=== PATIENT | male | born 1965 | race Caucasian/White ===

== ENCOUNTER → 2020-12-16 08:04 | Outpatient (BNVA) | payer MEDICAID, SELFPAY | PROVIDERS: Family Provider Family Medicine; PCP Family Medicine; Visit Provider Counselor Professional | DX: F31.13 Bipolar disorder, current episode manic without psychotic features, severe (principal); F41.0 Panic disorder [episodic paroxysmal anxiety] | CPT/HCPCS: 90832 ==

== ENCOUNTER → 2021-01-03 11:29 | Outpatient (BNVA) | payer MEDICAID, SELFPAY | PROVIDERS: Family Provider Family Medicine; PCP Family Medicine; Visit Provider Counselor Professional | DX: F31.13 Bipolar disorder, current episode manic without psychotic features, severe (principal); F41.0 Panic disorder [episodic paroxysmal anxiety] | CPT/HCPCS: 90832 ==

== ENCOUNTER → 2021-01-04 12:54 | Outpatient (BNVA) | payer MEDICAID, SELFPAY | PROVIDERS: Family Provider Family Medicine; PCP Family Medicine; Visit Provider Psychiatry & Neurology Psychiatry | DX: F33.2 Major depressive disorder, recurrent severe without psychotic features (principal); F60.1 Schizoid personality disorder; F70 Mild intellectual disabilities | CPT/HCPCS: 99204 ==

== ENCOUNTER → 2021-01-20 15:02 | Outpatient (BNVA) | payer MEDICAID, SELFPAY | PROVIDERS: Family Provider Family Medicine; PCP Family Medicine; Visit Provider Counselor Professional | DX: F31.13 Bipolar disorder, current episode manic without psychotic features, severe (principal); F41.0 Panic disorder [episodic paroxysmal anxiety] | CPT/HCPCS: 90832 ==

== ENCOUNTER → 2021-01-31 07:41 | Outpatient (BNVA) | payer MEDICAID, SELFPAY | PROVIDERS: Family Provider Family Medicine; PCP Family Medicine; Visit Provider Psychiatry & Neurology Psychiatry | DX: F70 Mild intellectual disabilities (principal); F60.1 Schizoid personality disorder; F33.2 Major depressive disorder, recurrent severe without psychotic features | CPT/HCPCS: 99213 ==

== ENCOUNTER → 2021-02-02 15:06 | Outpatient (BNVA) | payer MEDICAID, SELFPAY | PROVIDERS: Family Provider Family Medicine; PCP Family Medicine; Visit Provider Counselor Professional | DX: F31.13 Bipolar disorder, current episode manic without psychotic features, severe (principal); F41.0 Panic disorder [episodic paroxysmal anxiety] | CPT/HCPCS: 90832 ==

== ENCOUNTER → 2021-03-02 16:05 | Outpatient (BNVA) | payer MEDICAID, SELFPAY | PROVIDERS: Family Provider Family Medicine; PCP Family Medicine; Visit Provider Counselor Professional | DX: F31.13 Bipolar disorder, current episode manic without psychotic features, severe (principal); F41.0 Panic disorder [episodic paroxysmal anxiety] | CPT/HCPCS: 90832 ==

== ENCOUNTER → 2021-06-22 14:06 | Outpatient (BNVA) | payer MEDICAID, SELFPAY | PROVIDERS: Family Provider Family Medicine; PCP Family Medicine; Visit Provider Psychiatry & Neurology Psychiatry | DX: F70 Mild intellectual disabilities (principal); F60.1 Schizoid personality disorder; F33.2 Major depressive disorder, recurrent severe without psychotic features | CPT/HCPCS: 99214 ==

== ENCOUNTER → 2021-08-09 09:29 | Outpatient (BNVA) | payer MEDICAID, SELFPAY | PROVIDERS: Family Provider Family Medicine; PCP Family Medicine; Referring Provider Psychiatry & Neurology Psychiatry; Visit Provider Psychiatry & Neurology Psychiatry | DX: Z79.899 Other long term (current) drug therapy (principal) | CPT/HCPCS: 36415; 80061; 83036 ==

== ENCOUNTER → 2021-08-17 12:58 | Outpatient (BNVA) | payer MEDICAID, SELFPAY ==
[2021-08-12 10:59] VITALS: BP 135/74; BMI 38.8
== END ==
PROVIDERS: Family Provider Family Medicine; PCP Family Medicine; Referring Provider Family Medicine; Visit Provider Podiatrist Foot & Ankle Surgery
DX: M79.672 Pain in left foot (principal)
CPT/HCPCS: 73630

== ENCOUNTER 2021-08-17 13:54 | Outpatient (CLI) | payer MEDICAID, SELFPAY ==
[2021-08-12 10:59] VITALS: BP 135/74; BMI 38.8
== END 2021-08-17 13:55 | disposition home or self-care (01) ==
LOC: SPT 13:55
PROVIDERS: Family Provider Family Medicine; PCP Family Medicine; Visit Provider Podiatrist Foot & Ankle Surgery
DX: Z46.89 Encounter for fitting and adjustment of other specified devices (principal); M76.822 Posterior tibial tendinitis, left leg
CPT/HCPCS: 97760; L4361

== ENCOUNTER 2021-08-31 11:57 | Outpatient (CLI) | payer MEDICAID, SELFPAY ==
[2021-08-12 10:59] VITALS: BP 135/74; BMI 38.8
== END 2021-08-31 11:58 | disposition home or self-care (01) ==
LOC: SPT 11:58
PROVIDERS: Family Provider Family Medicine; PCP Family Medicine; Visit Provider Podiatrist Foot & Ankle Surgery
DX: Z46.89 Encounter for fitting and adjustment of other specified devices (principal); M76.822 Posterior tibial tendinitis, left leg
CPT/HCPCS: 97760; L1902

== ENCOUNTER → 2022-01-26 14:36 | Outpatient (BNVA) | payer MEDICAID, SELFPAY ==
[2021-08-12 10:59] VITALS: BP 135/74; BMI 38.8
== END ==
PROVIDERS: Family Provider Family Medicine; PCP Family Medicine; Visit Provider Psychiatry & Neurology Psychiatry
DX: F70 Mild intellectual disabilities (principal); F60.1 Schizoid personality disorder; F33.2 Major depressive disorder, recurrent severe without psychotic features; M76.829 Posterior tibial tendinitis, unspecified leg
CPT/HCPCS: 99214

== ENCOUNTER → 2022-02-23 10:45 | Outpatient (BNVA) | payer MEDICAID, SELFPAY ==
[2021-08-12 10:59] VITALS: BP 135/74; BMI 38.8
== END ==
PROVIDERS: Family Provider Family Medicine; PCP Family Medicine; Visit Provider Psychiatry & Neurology Psychiatry
DX: F33.2 Major depressive disorder, recurrent severe without psychotic features (principal); F70 Mild intellectual disabilities; F60.1 Schizoid personality disorder
CPT/HCPCS: 99214

== ENCOUNTER 2022-03-02 11:38 | Emergency (ER) | payer MEDICAID, SELFPAY ==
[2021-08-12 10:59] VITALS: BP 135/74; BMI 38.8
[2022-03-02 12:21] VITALS: BP 122/83; PULSE 85; RESP 16; TEMP 36.8; O2SAT 98; BMI 33.7
--- NOTE | 2022-03-02 12:28 | ED_ITS ---
HPI - Extremity Problem General: Chief complaint: Extremity Injury, Lower Stated complaint: toe pain/bite on foot Time Seen by Provider: 03/02/22 12:27 History of Present Illness: Patient is a 56-year-old male comes to the ED with lesion on foot. Patient says 5 days ago he felt something possibly a bite on the top of his left foot while laying in bed. He said it itched a lot throughout the night and when he woke up he had an abrasion on the top of his foot. He has been using triple antibiotic ointment and bandages to keep it covered wound has not improved much over the past 5 days. Patient says he does need an updated tetanus. Denies any fever, chills, nausea/vomiting. Associated symptoms: Deny chest pain, fever(s) or rash Review of Systems Const: Denies: fever(s), chills or fatigue Eyes: Denies: change in vision or eye discomfort ENMT: Denies: throat pain, odynophagia, nasal discharge or nasal congestion Card: Denies: chest pain, palpitations, edema, swelling of feet/ankles, dyspnea on exertion or orthopnea Resp: Denies: dyspnea, productive cough or non-productive cough GI: Denies: abdominal pain, nausea, vomiting, diarrhea, constipation or hematochezia : Denies: flank pain, difficulty urinating, dysuria or hematuria Musc: Denies: neck pain, back pain or extremity swelling Skin/Breast: Reports: new lesions (Abrasion on top of left foot.); Denies: rash Neuro: Denies: headache(s), numbness in extremities or weakness in extremities PFS ED PFSH: Medical History Asthma High cholesterol Hypertension Family History Other CAD (coronary artery disease) Cancer Diabetes Social History Smoking and tobacco status: former smoker Quit status (tobacco): has quit using tobacco Year quit tobacco: 2009 Second hand smoke exposure: No Alcohol intake: former Year of sobriety/quit date alcohol: 2009 Adopted: No Caregiver/support person: No Lives independently: Yes Household members: none Housing: Manufactured/Mobile home Marital status: Single Number of children: 3 Number of grandchildren: 1 Highest education level completed: GED or Equivalent service: No Current occupational status: retired and disabled Current occupational exposures/hazards: No Pets and animals: Yes (inside) Pets & animals: dog(s) History of recent travel: No Leisure activites: other Leisure activities details: nothing Sexually active: No Current gender identity: Male Jenny/Christian: Baptism Special jenny needs: No Agree to transfusion: Yes Financial difficulty paying for basics: Not Very Hard Physical Exam Const: COMMON NORMALS: no acute distress, patient oriented x3 and alert GENERAL APPEARANCE: cooperative and comfortable HENMT: COMMON NORMALS: normocephalic HEAD & SCALP: normocephalic MOUTH: Normal oral and palatal mucosa present THROAT: posterior oropharynx normal and uvula midline Neck/C-Spine: COMMON NORMALS: supple GENERAL: Yes normal visual inspection Resp: COMMON NORMALS: normal respiratory effort, No retractions, No use of accessory muscles and clear to auscultation bilaterally AUSCULTATION: clear to auscultation bilaterally Cardio: COMMON NORMALS: regular rate, regular rhythm, S1 normal heart sound present, S2 normal heart sound present, No gallops present (Cardio), No clicks present (Cardio), No murmurs present (Cardio) and Peripheral pulses 2+ throughout RATE: regular rate RHYTHM: regular rhythm HEART SOUNDS: S1 normal heart sound present and S2 normal heart sound present PERIPHERAL PULSES: Peripheral pulses 2+ throughout GI: COMMON NORMALS: Normal to inspection, nondistended, normoactive bowel sounds present, Soft to palpation, non-tender and no masses PALPATION: Yes Soft to palpation : COMMON NORMALS: Yes no CVA tenderness BLADDER/KIDNEY EXAM: Yes no CVA tenderness Back/Pelvis: COMMON NORMALS: no CVA tenderness Extremity: NARRATIVE EXTREMITY EXAM: Left foot?top of foot has superficial abrasion that is approximately 1 x 0.5 cm in size. It does have a little bit of surrounding erythema and is tender and warm to palpation. No purulent drainage noted. No swelling and nonfluctuant. Neuro: COMMON NORMALS: patient oriented x3 and moves all extremities SENSORIUM/ORIENTATION: Yes alert Skin: GENERAL SKIN EXAM: dry skin Course Vital Signs: Vital signs: Vital Signs Temperature 98.2 F 03/02/22 12:21 Pulse Rate 85 03/02/22 12:21 Respiratory Rate 16 03/02/22 12:21 Blood Pressure 122/83 03/02/22 12:21 Pulse Oximetry 98 03/02/22 12:21 MDM - Extremity (Nontraumatic) Medical Decision Making Patient is a 56-year-old male comes to the ED with a lesion on top of left foot. Possibly from a spider or bug bite. Patient says he was itching it a lot that night when he got lesion and now is a superficial abrasion on the top of his foot with some surrounding erythema, warmth and tenderness. No purulent drainage noted. Looks as if it might be getting a little infected. No signs of abscess noted. is up-to-date on tetanus and was given Adacel shot here in the ED. Patient diagnosed with an abrasion on foot and was discharged home with cephalexin. He was told to continue keeping abrasion clean daily with soap and water and then apply triple antibiotic ointment and bandage to keep it covered. Follow-up with PCP in the next week for reevaluation. Return to ED precautions given. Patient understood agree with plan. Discharge Plan Discharge Patient Disposition: Home Clinical Impression: Abrasion of foot Qualifiers: Encounter type: initial encounter Laterality: left Qualified Code(s): S90.812A - Abrasion, left foot, initial encounter Condition: Stable Prescriptions: New cephalexin 500 mg capsule 500 mg PO Q6H 7 Days Qty: 28 0RF No Action metoprolol succinate 25 mg tablet extended release 24 hr 12.5 mg PO DAILY 0RF aspirin [Adult Aspirin Regimen] 81 mg tablet,delayed release (DR/EC) 81 mg PO DAILY 0RF furosemide 20 mg tablet 10 mg PO BID 0RF diazepam 10 mg tablet 10 mg PO BID PRN0RF Stiolto Respimat 2.5-2.5 mcg/actuation mist 2 puff inhalation DAILY 0RF baclofen 10 mg tablet 10 mg PO TID 0RF amlodipine 2.5 mg tablet 2.5 mg PO DAILY 0RF atorvastatin 40 mg tablet 40 mg PO DAILY 0RF levothyroxine 100 mcg capsule 100 mcg PO DAILY 0RF zolpidem 10 mg tablet PO DAILY 0RF loratadine [Allergy Relief (loratadine)] 10 mg tablet 10 mg PO DAILY 0RF potassium chloride 10 mEq tablet extended release 10 meq PO BID 0RF hydrocodone bitartrate 10 mg capsule, oral only, ER 12hr 10 mg PO Q12H PRN0RF albuterol sulfate 90 mcg/actuation HFA aerosol inhaler 2 puff inhalation Q6H PRN (Reason: shortness of breath or wheezing) 0RF naproxen 500 mg tablet 500 mg PO BID Qty: 28 0RF albuterol sulfate 2.5 mg /3 mL (0.083 %) solution for nebulization 2.5 mg inhalation Q8H PRN (Reason: shortness of breath or wheezing) 0RF paroxetine HCl 40 mg tablet 40 mg PO DAILY Qty: 30 2RF trazodone 50 mg tablet 100 mg PO .HS PRN (Reason: insomnia) Qty: 60 2RF quetiapine [Seroquel] 50 mg tablet 50 mg PO .HS Qty: 30 2RF Discharge Orders: Discharge ED (Routine); Ordered 03/02/22 Ordered By: Demetrio Cornelius Referrals: Zack Edmondson DO [Primary Care Provider] - Discharge Diet: Regular Discharge Activity: Resume usual activity Patient Instructions: Abrasion (ED) Activity Restrictions/Additional Instructions: Follow-up with your primary care provider in the next 7 to 10 days for reevaluation. Take full course of antibiotics as prescribed. Keep wound on foot clean daily with soap and water. Then apply triple antibiotic ointment and bandage daily. Return to the ER or your medical provider if condition worsens. Please read and understand discharge instructions. Thank you for choosing [facility] for your healthcare needs today. Please realize this is an emergency room and that we are providing you with a medical screening exam and this may not be complete and all inclusive of all the testing and or work up that you may need to determine your ailment or severity of your illness. It is very important that you follow up as instructed or that you return to the Emergency Department should you have concerns or if your condition changes or worsens in any way. Coding Level of Care Code ED Information Technology Project Manager for Zeina Menchaca Exam Comprehensive
[2022-03-02] MEDS: tetanus-dipt-pertussis 0.5 mL SDV IM (12:47)
[2022-03-02] MEDS: neomycin-poly-bacitracin oint 0.9 gm Pkt 1 APPLIC TOPICAL (12:47)
== END 2022-03-02 12:51 | disposition home or self-care (01) ==
PROVIDERS: Emergency Provider Physician Assistant; PCP Family Medicine
DX: S90.812A Abrasion, left foot, initial encounter (principal); X58.XXXA Exposure to other specified factors, initial encounter
CPT/HCPCS: 90471; 90715; 99282

== ENCOUNTER 2022-03-26 08:14 | Emergency (ER) | payer MEDICAID, SELFPAY ==
[2021-08-12 10:59] VITALS: BP 135/74; BMI 38.8
[2022-03-26 08:22] VITALS: BP 178/95; PULSE 72; RESP 16; TEMP 36.7; O2SAT 99; BMI 33.9
--- NOTE | 2022-03-26 09:15 | ED_ITS ---
HPI - Extremity Problem General: Chief complaint: Extremity Injury, Upper Stated complaint: right hand pain and numbness Time Seen by Provider: 03/26/22 09:08 Source: patient Mode of arrival: ambulatory Limitations: no limitations History of Present Illness: 56-year-old male presents to the ER today for right hand numbness and tingling along with some swelling over the last 3 weeks. Patient reports it started in his ring finger and has now progressed to the middle and index finger. Patient reports mild swelling of the hand also. He reports is more of a numbness and tingling not a pain. He denies any prior history of injury to that hand. Patient has not taken anything for his symptoms at this time. Review of Systems General: Reports: 10 or more systems reviewed and unremarkable except in HPI and below PFSH ED PFSH: Medical History Asthma High cholesterol Hypertension Family History Other CAD (coronary artery disease) Cancer Diabetes Social History Smoking and tobacco status: former smoker Quit status (tobacco): has quit using tobacco Year quit tobacco: 2009 Second hand smoke exposure: No Alcohol intake: former Year of sobriety/quit date alcohol: 2009 Adopted: No Caregiver/support person: No Lives independently: Yes Household members: none Housing: Manufactured/Mobile home Marital status: Single Number of children: 3 Number of grandchildren: 1 Highest education level completed: GED or Equivalent service: No Current occupational status: retired and disabled Current occupational exposures/hazards: No Pets and animals: Yes (inside) Pets & animals: dog(s) History of recent travel: No Leisure activites: other Leisure activities details: nothing Sexually active: No Current gender identity: Male Jenny/Yarsanism: Jehovah'S Witness Special jenny needs: No Agree to transfusion: Yes Financial difficulty paying for basics: Not Very Hard Physical Exam Const: COMMON NORMALS: no acute distress, average body habitus, patient oriented x3, healthy appearing, alert and well nourished HENMT: COMMON NORMALS: normocephalic, hearing grossly normal bilaterally, Normal external nose present and moist oral mucous membranes HEAD & SCALP: normocephalic NOSE: Normal external nose present Eye: COMMON NORMALS: conjunctivae normal CONJUNCTIVA: Yes conjunctivae normal Neck/C-Spine: COMMON NORMALS: full ROM and no lymphadenopathy Resp: COMMON NORMALS: normal respiratory effort and No retractions Cardio: COMMON NORMALS: regular rate and regular rhythm RATE: regular rate RHYTHM: regular rhythm Extremity: NARRATIVE EXTREMITY EXAM: Patient reports numbness and tingling to the right index middle and ring finger. There is no obvious swelling noted. No bruising or skin changes. Tinel's sign is negative. No thenar atrophy is noted. Normal range of motion. Neuro: COMMON NORMALS: patient oriented x3 SENSORIUM/ORIENTATION: Yes alert Psych: COMMON NORMALS: mental status grossly normal, Normal thought process present and cooperative THOUGHT PROCESS: Normal thought process present Skin: COMMON NORMALS: no rashes or lesions noted GENERAL SKIN EXAM: no rashes or lesions noted Course ED course: 56-year-old male presents to the ER today for right fingers swelling and tingling for the last 3 weeks. Patient denies any known injury. This is a index middle and ring finger of his right hand. He reports some pain through the wrist and up into the elbow. This is more of an achy pain associated with the numbness. Exam is mostly unremarkable. No obvious swelling noted. This is not an injury so an x-ray is unlikely to help. I discussed with patient that this likely is something he is to follow-up with his PCP regarding to discuss a nerve conduction study. In the meantime patient should take some ibuprofen or Aleve for inflammation. Patient has not currently been taking anything for pain. I also will give patient a wrist brace to wear at night as this sounds like it could be carpal tunnel versus ulnar tunnel. Vital Signs: Vital signs: Vital Signs Temperature 98.0 F 03/26/22 08:22 Pulse Rate 72 03/26/22 08:22 Respiratory Rate 16 03/26/22 08:22 Blood Pressure 178/95 03/26/22 08:22 Pulse Oximetry 99 03/26/22 08:22 MDM - Extremity (Nontraumatic) Medical Decision Making 56-year-old male presents to the ER today for right fingers swelling and tingling for the last 3 weeks. Patient denies any known injury. This is a ind ex middle and ring finger of his right hand. He reports some pain through the wrist and up into the elbow. This is more of an achy pain associated with the numbness. Exam is mostly unremarkable. No obvious swelling noted. This is not an injury so an x-ray is unlikely to help. I discussed with patient that this likely is something he is to follow-up with his PCP regarding to discuss a nerve conduction study. In the meantime patient should take some ibuprofen or Aleve for inflammation. Patient has not currently been taking anything for pain. I also will give patient a wrist brace to wear at night as this sounds like it could be carpal tunnel versus ulnar tunnel. Patient verbalized understanding and is in agreement with the treatment plan. Critical Care Time Critical Care Time: Critical Care Time: No Discharge Plan Discharge Patient Disposition: Home Clinical Impression: Acute carpal tunnel syndrome Condition: Stable Prescriptions: No Action metoprolol succinate 25 mg tablet extended release 24 hr 12.5 mg PO DAILY 0RF aspirin [Adult Aspirin Regimen] 81 mg tablet,delayed release (DR/EC) 81 mg PO DAILY 0RF furosemide 20 mg tablet 10 mg PO BID 0RF diazepam 10 mg tablet 10 mg PO BID PRN0RF Stiolto Respimat 2.5-2.5 mcg/actuation mist 2 puff inhalation DAILY 0RF baclofen 10 mg tablet 10 mg PO TID 0RF amlodipine 2.5 mg tablet 2.5 mg PO DAILY 0RF atorvastatin 40 mg tablet 40 mg PO DAILY 0RF levothyroxine 100 mcg capsule 100 mcg PO DAILY 0RF zolpidem 10 mg tablet PO DAILY 0RF loratadine [Allergy Relief (loratadine)] 10 mg tablet 10 mg PO DAILY 0RF potassium chloride 10 mEq tablet extended release 10 meq PO BID 0RF hydrocodone bitartrate 10 mg capsule, oral only, ER 12hr 10 mg PO Q12H PRN0RF albuterol sulfate 90 mcg/actuation HFA aerosol inhaler 2 puff inhalation Q6H PRN (Reason: shortness of breath or wheezing) 0RF naproxen 500 mg tablet 500 mg PO BID Qty: 28 0RF albuterol sulfate 2.5 mg /3 mL (0.083 %) solution for nebulization 2.5 mg inhalation Q8H PRN (Reason: shortness of breath or wheezing) 0RF paroxetine HCl 40 mg tablet 40 mg PO DAILY Qty: 30 2RF trazodone 50 mg tablet 100 mg PO .HS PRN (Reason: insomnia) Qty: 60 2RF quetiapine [Seroquel] 50 mg tablet 50 mg PO .HS Qty: 30 2RF Discharge Orders: Discharge ED (Routine); Ordered 03/26/22 Ordered By: Grace Sanderson Referrals: Zack Edmondson DO [Primary Care Provider] - Discharge Diet: Usual diet Discharge Activity: Resume usual activity Patient Instructions: Opioid Safety Activity Restrictions/Additional Instructions: Take ibuprofen or Aleve as discussed. Wear wrist brace as discussed. Follow-up with PCP in 3 to 5 days to discuss a nerve conduction study. Return to the ER with new or worsening symptoms. Coding Level of Care Code ED Senior Mechanical Development Engineer for Zeina Menchaca
== END 2022-03-26 09:23 | disposition home or self-care (01) ==
PROVIDERS: Emergency Provider Physician Assistant; PCP Family Medicine
DX: G56.01 Carpal tunnel syndrome, right upper limb (principal)
CPT/HCPCS: 99282

== ENCOUNTER → 2022-04-11 07:41 | Outpatient (BNVA) | payer MEDICAID, SELFPAY ==
[2021-08-12 10:59] VITALS: BP 135/74; BMI 38.8
== END ==
PROVIDERS: PCP Family Medicine Adult Medicine; Visit Provider Surgery
DX: K63.5 Polyp of colon (principal)
CPT/HCPCS: 99203

== ENCOUNTER → 2022-04-17 13:09 | Outpatient (BNVA) | payer MEDICAID, SELFPAY ==
[2021-08-12 10:59] VITALS: BP 135/74; BMI 38.8
== END ==
PROVIDERS: PCP Family Medicine Adult Medicine; Visit Provider Internal Medicine Cardiovascular Disease
DX: I25.118 Atherosclerotic heart disease of native coronary artery with other forms of angina pectoris (principal); I10 Essential (primary) hypertension; E78.00 Pure hypercholesterolemia, unspecified; E03.9 Hypothyroidism, unspecified; Z87.891 Personal history of nicotine dependence
CPT/HCPCS: 93005; 99204

== ENCOUNTER → 2022-05-15 09:54 | Outpatient (BNVA) | payer MEDICAID, SELFPAY ==
[2021-08-12 10:59] VITALS: BP 135/74; BMI 38.8
== END ==
PROVIDERS: PCP Family Medicine Adult Medicine; Visit Provider Internal Medicine Pulmonary Disease
DX: R06.02 Shortness of breath (principal); E66.9 Obesity, unspecified; Z12.2 Encounter for screening for malignant neoplasm of respiratory organs; Z87.891 Personal history of nicotine dependence; J44.9 Chronic obstructive pulmonary disease, unspecified; J45.909 Unspecified asthma, uncomplicated; I10 Essential (primary) hypertension; E03.9 Hypothyroidism, unspecified
CPT/HCPCS: 80061; 83036; 99204

== ENCOUNTER → 2022-05-18 10:35 | Outpatient (BNVA) | payer MEDICAID, SELFPAY ==
[2021-08-12 10:59] VITALS: BP 135/74; BMI 38.8
== END ==
PROVIDERS: PCP Family Medicine Adult Medicine; Visit Provider Psychiatry & Neurology Psychiatry
DX: F60.1 Schizoid personality disorder (principal); F33.2 Major depressive disorder, recurrent severe without psychotic features; F70 Mild intellectual disabilities; M76.829 Posterior tibial tendinitis, unspecified leg
CPT/HCPCS: 99214

== ENCOUNTER 2022-05-22 09:01 | Outpatient (CLI) | payer MEDICAID, SELFPAY ==
[2021-08-12 10:59] VITALS: BP 135/74; BMI 38.8
--- NOTE | 2022-05-22 10:15 | USCV_ITS ---
Gurpreet Velez Age: 56 Gender: M : 1965 Exam Date: 05/22/2022 09:36 Ordering Phys: Brennan Driver MD ([email or web address]) Technologist: NEETU Exam Location: [facility] [place] Indication: Prior CABG BP: 120 / 60 HR: 68 Rhythm: Sinus Technical Quality: Adequate MEASUREMENTS (Male / Female) Normal Values 2D ECHO LV Diastolic Diameter PLAX 5.1 cm 4.2 - 5.9 / 3.9 - 5.3 cm LV Systolic Diameter PLAX 3.3 cm LV Chamber Size 3.5 cm IVS Diastolic Thickness 1.0 cm 0.6 - 1.0 / 0.6 - 0.9 cm IVS Systolic Thickness 2.0 cm LVPW Diastolic Thickness 1.3 cm 0.6 - 1.0 / 0.6 - 0.9 cm LVPW Systolic Thickness 1.7 cm RV Chamber Size 3.6 cm LVOT Diameter 2.0 cm LV Ejection Fraction 2D Teich 65.3 % LV Ejection Fraction MOD 2C 73.6 % LV Ejection Fraction 2C AL 74.4 % LA Diameter 4.3 cm LA Width 3.1 cm LA Height 3.9 cm RA Width 3.4 cm RA Height 4.3 cm Aorta at Sinotubular Diameter 2.9 cm IVC Diameter 2.2 cm M-MODE Aortic Annulus Diameter 2.9 cm LA Ao Ratio MM 1.6 MV E Point Septal Separation 0.4 cm DOPPLER AV Peak Velocity 105.0 cm/s LVOT Peak Velocity 65.0 cm/s AV Area Cont Eq vti 2.3 cm squared AV Area Cont Eq pk 2.0 cm squared MV Area PHT 3.9 cm squared Mitral E to A Ratio 1.4 MV E' Velocity 45.0 cm/s Mitral E to MV E' Ratio 7.8 Mitral E to LV E' Lateral Ratio 8.7 Mitral E to LV E' Septal Ratio 7.2 TR Peak Velocity 279.0 cm/s TR Peak Gradient 31.1 mmHg TR Mean Velocity 213.7 cm/s TR Mean Gradient 20.0 mmHg TR Velocity Time Integral 80.4 cm TV Peak E Velocity 67.0 cm/s Right Atrial Pressure 3.0 mmHg Pulmonary Artery Systolic Pressu 34.1 mmHg PV Peak Velocity 61.0 cm/s RV Acceleration Time 0.2 s RV Ejection Time 0.4 s RV AcT/ET 0.5 FINDINGS Left Ventricle Normal LV size ejection fraction of 55%(visual). Relative hypokinesia of the basal and mid septal segments. Right Ventricle The right ventricle is normal in size and function. Right Atrium The right atrium is normal in size. Left Atrium Mildly increased left atrial size. Mitral Valve No gross abnormalities noted Aortic Valve No gross abnormalities noted Tricuspid Valve Trace to mild tricuspid valve regurgitation. Pulmonic Valve Pulmonic valve not well visualized. Pericardium Normal pericardium without effusion. Aorta Normal ascending aorta dimension. IVC The inferior vena cava appeared to be mildly dilated, measuring 2.16 cm. CONCLUSIONS Normal LV size ejection fraction of 55%(visual). Wall motion abnormalities as mentioned above. Mildly increased left atrial size. Trace to mild tricuspid valve regurgitation. There is no pericardial effusion. There are no intracardiac masses. Technically somewhat difficult study. No similar previous studies are available for comparison Dr Brennan Driver MD FAC (Electronically Signed) Final Date: 22 May 2022 20:17 S
== END 2022-05-22 09:02 | disposition home or self-care (01) ==
LOC: RAD 09:02
PROVIDERS: PCP Family Medicine Adult Medicine; Visit Provider Internal Medicine Cardiovascular Disease
DX: R07.9 Chest pain, unspecified (principal); R06.00 Dyspnea, unspecified; I25.118 Atherosclerotic heart disease of native coronary artery with other forms of angina pectoris
CPT/HCPCS: 93306

== ENCOUNTER 2022-05-24 06:52 | Outpatient (CLI) | payer MEDICAID, SELFPAY ==
[2021-08-12 10:59] VITALS: BP 135/74; BMI 38.8
--- NOTE | 2022-05-24 07:34 | ECG_ITS ---
[facility] Test Date: 2022-05-24 Pat Name: Gurpreet Velez Department: Room: Gender: Male Vertical Borer: Mónica Rodriguez : 1965 Requested By: Brennan Driver Order Number: [id number] Katie MD: Brennan Driver M.D. Interpretive Statements NAME OF STUDY: EXERCISE SESTAMIBI STRESS TEST INDICATION: Chest Pain, PROCEDURE: The baseline electrocardiogram showed normal sinus rhythm with a poor R wave progression. Normal ST Ts. At the baseline, the patient's blood pressure was 136/75 mm Hg with a heart rate of 88. The patient exercised for 6 minutes and 16 seconds on a standard Jerome protocol. Patient attained a maximum heart rate of 147 beats per minute(90% of the maximum predicted heart rate) with a blood pressure at the peak exercise of 157/88 mm Hg. The EKG at the peak exercise revealed nonspecific ST changes in the inferolateral leads. Patient did not have any chest pain or any significant arrhythmis with the exercise Sestamibi was injected 1 minute prior to the peak exercise During the recovery phase, there were no new changes. Blood pressure at the end of the recovery phase was 151/69 mm Hg with a heart rate of 84 per minute. CONCLUSION: 1. Nonspecific EKG changes with the [treadmill exercise 2. No exercise-induced chest pain or cardiac arrhythmia 3. Slightly impaired exercise tolerance, attained a maximum of 10.2 METs 4. Sestamibi/Sestamibi perfusion results pending; see separate report. Electronically Signed On 05-30-2022 17:53:34 CDT by Brennan Driver M.D. [id number]
--- NOTE | 2022-05-24 07:34 | NMCV_ITS ---
NM geraldine perf SPECT r/s* [id number] Gurpreet Velez Age: 56 Gender: M : 1965 Exam Date: 05/24/2022 08:12 Ordering Phys: Brennan Driver MD ([email or web address]) Technologist: JOSE Winkler Exam Location: [facility] Indications: CHRONIC ISCHEMIC HEART DISEASE STRESS TEST Please [facility] IMAGE PROTOCOL Rest/Stress 1 Exercise Day Radiopharmaceutical Dose (mCi) Administration Site Administered by Rest: Tc-99m 10.7 IV JOSE Estes Sestamibi Stress:Tc-99m 32.6 IV JOSE Winkler Sestamiatilio Rest: 24-May-2022 60 Discovery 630 Stress: 24-May-2022 15 Discovery 630 Radiopharmaceutical was injected at 87 % maximum heart rate. Images obtained in supine and prone position. SPECT RESULTS Technical Quality: Excellent Raw Data Analysis: Normal Image Corrections: No attenuation or motion correction applied Summed Stress Score: 7 Summed Rest Score: 6 Summed Difference Score: 2 PERFUSION FINDINGS Moderate area of moderately decreased aseptic in the mid inferolateral, mid and apical inferior and apical lateral regions. Significant reversibility was noted in the mid inferolateral and mid inferior regions. FUNCTIONAL RESULTS (calculated via Gated SPECT) Stress Image LV EF (%): 63 Stress EDV (mL):125 TID: 1.03 Stress ESV (mL):46 FUNCTIONAL FINDINGS: Segmental wall motion analysis revealing no gross wall motion normalities. IMPRESSIONS 1. Myocardial perfusion imaging revealing moderate area of decreased tracer uptake in the mid and apical inferior, mid inferolateral and apical lateral wall regions with significant reversibility suggesting myocardial scarring with ischemia, predominantly in the distribution of the left circumflex artery with some involvement of the right coronary artery . 2. Normal LV ejection fraction of 63%. 3. LV wall motion analysis revealing no gross wall motion abnormalities. 4. LV volume, upper limit of normal . No similar previous studies are available for comparison Dr Brennan Driver MD FACC (Electronically Signed) Final Date: 24 May 2022 19:59 S
[2022-05-24 07:35] VITALS: BMI 35.3
[2022-05-24 08:54] VITALS: BP 183/69; PULSE 93
== END 2022-05-24 06:53 | disposition home or self-care (01) ==
LOC: CDL 06:59
PROVIDERS: PCP Family Medicine Adult Medicine; Visit Provider Internal Medicine Cardiovascular Disease
DX: R06.02 Shortness of breath (principal); I25.118 Atherosclerotic heart disease of native coronary artery with other forms of angina pectoris
CPT/HCPCS: 78452; 93017; A9500

== ENCOUNTER → 2022-06-01 12:51 | Outpatient (BNVA) | payer MEDICAID, SELFPAY ==
[2021-08-12 10:59] VITALS: BP 135/74; BMI 38.8
== END ==
PROVIDERS: PCP Family Medicine Adult Medicine; Visit Provider Internal Medicine Cardiovascular Disease
DX: I25.118 Atherosclerotic heart disease of native coronary artery with other forms of angina pectoris (principal); R94.39 Abnormal result of other cardiovascular function study; E78.00 Pure hypercholesterolemia, unspecified; I10 Essential (primary) hypertension; E03.9 Hypothyroidism, unspecified; J44.9 Chronic obstructive pulmonary disease, unspecified; R06.02 Shortness of breath
CPT/HCPCS: 99215

== ENCOUNTER 2022-06-02 14:18 | Outpatient (CLI) | payer MEDICAID, SELFPAY ==
[2021-08-12 10:59] VITALS: BP 135/74; BMI 38.8
[2022-06-02 14:46] LABS: Basophils # 0.1 10^3/uL (0.0-0.1); Basophils % 0.8 %; Eosinophils # 0.3 10^3/uL (0.0-0.8); Eosinophils % 2.7 %; Hematocrit 45.1 % (42.0-52.0); Hemoglobin 15.8 g/dL (11.7-16.6); Lymphocytes # 2.5 10^3/uL (0.8-4.8); Lymphocytes % 23.3 %; Mean Corpuscular Hemoglobin 32.9 pg (28.0-34.0); Mean Platelet Volume 9.6 fL (7.4-10.4); Monocytes # 0.7 10^3/uL (0.2-0.9); Monocytes % 6.4 %; Neutrophils # 7.03 10^3/uL (1.8-7.7); Neutrophils % 66.4 %; Nucleated Red Blood Cells % 0 %; Platelet Count 250 10^3/cmm (130-400); Red Cell Distribution Width 13.1 % (12.1-15.1); White Blood Count 10.6 10^3/uL (4.0-10.0)
[2022-06-02 14:59] LABS: INR 1.06 (0.83-1.21); Prothrombin Time (Patient) 14.1 Seconds (12.0-15.1)
[2022-06-02 15:12] LABS: Blood Urea Nitrogen 13 mg/dL (6-20); Calcium 8.3 mg/dL (8.5-10.5); Carbon Dioxide 23 mmol/L (22-29); Chloride 102 mmol/L (98-107); Glomerular Filtration Rate 86.7 mL/min (90-130); Glucose 130 mg/dL (65-115); NT Pro B Type Natriuretic Pept 202 pg/mL (0-125); Osmolality Calculated 288 mOsm/kg (285-295); Sodium 138 mmol/L (136-145)
[2022-06-02 15:14] LABS: Anion Gap 16.8 (5-19); Potassium 3.8 mmol/L (3.5-5.1)
== END 2022-06-02 14:19 | disposition home or self-care (01) ==
LOC: LAB 14:22
PROVIDERS: PCP Family Medicine Adult Medicine; Visit Provider Internal Medicine Cardiovascular Disease
DX: R94.39 Abnormal result of other cardiovascular function study (principal); I10 Essential (primary) hypertension; E03.9 Hypothyroidism, unspecified; Z79.899 Other long term (current) drug therapy
CPT/HCPCS: 36415; 80048; 83880; 85025; 85610; 86850; 86900

== ENCOUNTER 2022-06-06 18:00 | Emergency (ER) | payer MEDICAID, SELFPAY ==
[2022-06-05 10:21] VITALS: BP 135/74; BMI 38.8
[2022-06-06 18:43] VITALS: BP 158/89; PULSE 72; RESP 16; TEMP 36.7; O2SAT 99; BMI 35.4
--- NOTE | 2022-06-06 19:02 | XRR_ITS ---
PROCEDURE INFORMATION: Exam: XR Chest Exam date and time: 06/06/2022 7:12 PM Age: 56 years old Clinical indication: Wheezing TECHNIQUE: Imaging protocol: Radiologic exam of the chest. Views: 1 view. COMPARISON: No relevant prior studies available. FINDINGS: Lungs: Unremarkable. No consolidation. Pleural spaces: Unremarkable. No pleural effusion. No pneumothorax. Heart/Mediastinum: Unremarkable. No cardiomegaly. Bones/joints: Sternotomy wires. XR/XR chest 1V portable [id number] IMPRESSION: Negative for infiltrate.
--- NOTE | 2022-06-06 19:03 | ED_ITS ---
HPI - General Adult General: Chief complaint: Weakness Stated complaint: Drowsy, headache Time Seen by Provider: 06/06/22 18:51 History of Present Illness: Patient is a 56-year-old male who comes to the ER the with fatigue and headache. He has a history of COPD, hypertension, asthma and uses albuterol and budesonide inhaler. Patient also had a cardiac stress test done 2 weeks ago and has an appointment with management supervisor for follow-up soon. Symptoms started 3 days ago which is right after his doctor increased his dose of amlodipine went from 2.5mg to 5 mg daily. He also says 1 of his psych meds dosing was increased, but he is unsure which medication was increased. Since the change in dosing of those 2 medications he is had a very mild headache and felt fatigue and tired throughout day. Patient says he has some chronic shortness of breath due to his asthma and COPD but denies any acute change. Denies any chest pain, fevers, chills, shortness of breath, nausea/vomiting, upper respiratory symptoms, abdominal pain, bladder or bowel symptoms. Associated symptoms: Reports headache(s); Deny chest pain, dyspnea, nausea, rash, palpitations or vomiting Review of Systems Const: Reports: fatigue; Denies: fever(s) or chills Eyes: Denies: change in vision or eye discomfort ENMT: Denies: throat pain, odynophagia, nasal discharge or nasal congestion Card: Denies: chest pain, palpitations, edema, swelling of feet/ankles, dyspnea on exertion or orthopnea Resp: Denies: dyspnea, productive cough or non-productive cough GI: Denies: abdominal pain, nausea, vomiting, diarrhea, constipation or hematochezia : Denies: flank pain, difficulty urinating, dysuria or hematuria Musc: Denies: neck pain, back pain or extremity swelling Skin/Breast: Denies: rash or new lesions Neuro: Reports: headache(s); Denies: numbness in extremities or weakness in extremities PFS ED PFSH: Medical History Asthma Colon polyps COPD (chronic obstructive pulmonary disease) DJD (degenerative joint disease) High cholesterol Hypertension Hypothyroidism Surgical History History of open heart surgery 3- with CABG and Dr Grullon Surgeon in [place] History of replacement of both shoulder joints 2019 History of right knee surgery Reattach patella Hx of colonoscopy with polypectomy 12/31/[address] Quiroga Family History Father CAD (coronary artery disease), Onset Age: 54 Dementia Diabetes Family/Other CAD (coronary artery disease) Cancer Stroke Mother Cancer Denies family history of Clotting disorder Chronic kidney disease (CKD) Suicide Anesthesia complication Bleeding disorder Lung disease Social History Smoking and tobacco status: never smoked Quit status (tobacco): has quit using tobacco Year quit tobacco: 2009 Former quit date comment: 1ppd x 30 years Second hand smoke exposure: No Alcohol intake: former Year of sobriety/quit date alcohol: 2009 Adopted: No Caregiver/support person: No Lives independently: Yes Household members: none Housing: Manufactured/Mobile home Marital status: Single Number of children: 3 Number of grandchildren: 1 Highest education level completed: GED or Equivalent service: No Current occupational status: retired and disabled Current occupational exposures/hazards: No Pets and animals: Yes (inside) Pets & animals: dog(s) History of recent travel: No Leisure activites: other Leisure activities details: nothing Sexually active: No Current gender identity: Male Jenny/Anabaptist: [employer] Special jenny needs: No Agree to transfusion: Yes Financial difficulty paying for basics: Not Very Hard Physical Exam Const: COMMON NORMALS: no acute distress, patient oriented x3 and alert GENERAL APPEARANCE: cooperative and comfortable HENMT: COMMON NORMALS: normocephalic HEAD & SCALP: normocephalic MOUTH: Normal oral and palatal mucosa present THROAT: posterior oropharynx normal and uvula midline Neck/C-Spine: COMMON NORMALS: supple GENERAL: Yes normal visual inspection Resp: COMMON NORMALS: normal respiratory effort, No retractions and No use of accessory muscles AUSCULTATION: wheezes expiratory wheezes and throughout Cardio: COMMON NORMALS: regular rate, regular rhythm, S1 normal heart sound present, S2 normal heart sound present, No gallops present (Cardio), No clicks present (Cardio), No murmurs present (Cardio) and Peripheral pulses 2+ throughout RATE: regular rate RHYTHM: regular rhythm HEART SOUNDS: S1 normal heart sound present and S2 normal heart sound present PERIPHERAL PULSES: Peripheral pulses 2+ throughout GI: COMMON NORMALS: Normal to inspection, nondistended, normoactive bowel sounds present, Soft to palpation, non-tender and no masses PALPATION: Yes Soft to palpation : COMMON NORMALS: Yes no CVA tenderness BLADDER/KIDNEY EXAM: Yes no CVA tenderness Back/Pelvis: COMMON NORMALS: no CVA tenderness Extremity: COMMON NORMALS: normal to inspection Neuro: COMMON NORMALS: patient oriented x3 and moves all extremities SENSORIUM/ORIENTATION: Yes alert Skin: GENERAL SKIN EXAM: dry skin Course Vital Signs: Vital signs: Vital Signs Temperature 98.1 F 06/06/22 18:43 Pulse Rate 74 06/06/22 19:28 Respiratory Rate 16 06/06/22 20:17 Blood Pressure 135/86 06/06/22 19:27 Pulse Oximetry 99 06/06/22 19:27 [facility] - General Adult Medical Decision Making Patient is a 56-year-old male who comes to the ER the with fatigue and headache. He has a history of COPD, hypertension, asthma and uses albuterol and budesonide inhaler. Symptoms started 3 days ago after patient had his amlodipine dose increased. He also states he had a psych med that he increased his dose on as well 3 days ago but is unsure of which medication that was. Denies any chest pain, fever, cough. Vitals are stable. Patient appears nontoxic and in no acute distress or pain here in the ED. Patient has some wheezing upon auscul tation. Labs were unremarkable. Chest x-ray shows no infiltrates. Patient was given DuoNeb breathing treatment here in the ED and his wheezing improved. He also received a dose of Solu-Medrol here in the ED as well. His symptoms of fatigue and headache are common side effects of amlodipine and are likely due to his increased dose, considering all other labs and imaging were negative. He was diagnosed with medication side effects and wheezing and discharged home with a prescription for prednisone. He was told to continue taking his previously prescribed medication and to check his blood pressures multiple times throughout the day. Told to follow-up with his PCP in the next week for reevaluation. Return to ED precautions given. Patient understood and agreed with plan. Lab Data I reviewed the patient's lab results. : 06/06/22 19:15 06/06/22 19:15 Radiology Impressions Chest X-Ray 06/06/22 19:02 IMPRESSION: Negative for infiltrate. Laboratory Results WBC 11.1 10^3/uL (4.0-10.0) H 06/06/22 19:15 RBC 4.82 10^6/uL (4.1-5.3) 06/06/22 19:15 Hgb 15.7 g/dL (11.7-16.6) 06/06/22 19:15 Hct 45.1 % (42.0-52.0) 06/06/22 19:15 MCV 93.6 fl (80-94) 06/06/22 19:15 MCH 32.6 pg (28.0-34.0) 06/06/22 19:15 MCHC 34.8 g/dL (30.0-36.0) 06/06/22 19:15 RDW 13.2 % (12.1-15.1) 06/06/22 19:15 Plt Count 263 10^3/cmm (130-400) 06/06/22 19:15 MPV 9.6 fL (7.4-10.4) 06/06/22 19:15 Neut % (Auto) 62.9 % 06/06/22 19:15 Lymph % (Auto) 22.8 % 06/06/22 19:15 Ware % (Auto) 10.5 % 06/06/22 19:15 Eos % (Auto) 2.6 % 06/06/22 19:15 Baso % (Auto) 0.8 % 06/06/22 19:15 Neut # (Auto) 6.99 10^3/uL (1.8-7.7) 06/06/22 19:15 Lymph # (Auto) 2.5 10^3/uL (0.8-4.8) 06/06/22 19:15 Ware # (Auto) 1.2 10^3/uL (0.2-0.9) H 06/06/22 19:15 Eos # (Auto) 0.3 10^3/uL (0.0-0.8) 06/06/22 19:15 Baso # (Auto) 0.1 10^3/uL (0.0-0.1) 06/06/22 19:15 Nucleated RBC % (auto) 0 % 06/06/22 19:15 Nucleated RBCs # 0.0 /100WBC 06/06/22 19:15 Sodium 138 mmol/L (136-145) 06/06/22 19:15 Potassium 4.1 mmol/L (3.5-5.1) 06/06/22 19:15 Chloride 103 mmol/L (98-107) 06/06/22 19:15 Carbon Dioxide 25 mmol/L (22-29) 06/06/22 19:15 Anion Gap 14.1 (5-19) 06/06/22 19:15 BUN 14 mg/dL (6-20) 06/06/22 19:15 Creatinine 0.9 mg/dL (0.7-1.2) 06/06/22 19:15 GFR Calculation 86.7 mL/min (90-130) L 06/06/22 19:15 Glucose 96 mg/dL (65-115) 06/06/22 19:15 Calculated Osmolality 286 mOsm/kg (285-295) 06/06/22 19:15 Calcium 8.5 mg/dL (8.5-10.5) 06/06/22 19:15 Total Bilirubin 0.3 mg/dL (0.15-1.2) 06/06/22 19:15 AST 18 U/L (0-40) 06/06/22 19:15 ALT 25 U/L (0-41) 06/06/22 19:15 Alkaline Phosphatase 98 IU/L (40-130) 06/06/22 19:15 Total Protein 6.7 g/dL (6.6-8.7) 06/06/22 19:15 Albumin 4.2 g/dL (3.5-5.2) 06/06/22 19:15 Globulin 2.5 g/dL (1.3-4.6) 06/06/22 19:15 Discharge Plan Discharge Patient Disposition: Home Clinical Impression: Medication side effects, Wheezing on auscultation Condition: Stable Prescriptions: New prednisone 20 mg tablet 20 mg PO BID 5 Days Qty: 10 0RF No Action hydrocodone bitartrate 10 mg capsule, oral only, ER 12hr 10 mg PO Q12H PRN0RF trazodone 100 mg tablet 200 mg PO .HS PRN (Reason: insomnia) Qty: 60 2RF paroxetine HCl 40 mg tablet 80 mg PO DAILY Qty: 60 2RF albuterol sulfate 90 mcg/actuation HFA aerosol inhaler 2 puff inhalation Q6H PRN (Reason: shortness of breath or wheezing) Qty: 8.5 5RF albuterol sulfate 2.5 mg /3 mL (0.083 %) solution for nebulization 2.5 mg inhalation Q8H PRN (Reason: shortness of breath or wheezing) Qty: 90 3RF aspirin [Adult Aspirin Regimen] 81 mg tablet,delayed release (DR/EC) 81 mg PO DAILY Qty: 90 3RF atorvastatin 40 mg tablet 40 mg PO DAILY Qty: 30 5RF furosemide 20 mg tablet 10 mg PO BID Qty: 60 5RF levothyroxine 100 mcg capsule 100 mcg PO DAILY Qty: 30 5RF metoprolol succinate 25 mg tablet extended release 24 hr 12.5 mg PO DAILY Qty: 30 5RF potassium chloride 10 mEq tablet extended release 10 meq PO BID Qty: 60 5RF baclofen 10 mg tablet 10 mg PO TID PRN (Reason: Chronic back pain) 0RF nitroglycerin 0.4 mg tablet, sublingual 0.4 mg sublingual Q5M PRN (Reason: chest pain) 30 Days Qty: 30 3RF Rx Instructions: until response; do not exceed 3 doses per episode budesonide-formoterol [Symbicort] 160-4.5 mcg/actuation HFA aerosol inhaler 2 puff inhalation BID Qty: 10.2 3RF isosorbide mononitrate 30 mg tablet extended release 24 hr 30 mg PO DAILY 30 Days Qty: 30 5RF amlodipine 5 mg tablet 5 mg PO DAILY Qty: 90 3RF Discharge Orders: Discharge ED (Routine); Ordered 06/06/22 Ordered By: Demetrio Cornelius Referrals: Juan Carlos Dawson MD [Primary Care Provider] - Discharge Diet: Regular Discharge Activity: Increase activity as tolerated Activity Restrictions/Additional Instructions: Follow-up with medical provider as directed within the next 5 to 7 days for reevaluation and to discuss likely medication side effect since upping dose. Check blood pressures at home multiple times throughout the day to see how new increased dose of amlodipine is affecting blood pressures. Take medications as prescribed and continue taking all previously prescribed meds. Return to the ER or your medical provider if condition worsens. Please read and understand discharge instructions. Thank you for choosing [facility] for your healthcare needs today. Please realize this is an emergency room and that we are providing you with a medical screening exam and this may not be complete and all inclusive of all the testing and or work up that you may need to determine your ailment or severity of your illness. It is very important that you follow up as instructed or that you return to the Emergency Department should you have concerns or if your condition changes or worsens in any way. Coding Level of Care Code ED Air Quality Chemist for Zeina Menchaca Exam Comprehensive
[2022-06-06 19:17] VITALS: PULSE 71; RESP 18; O2SAT 98
[2022-06-06] MEDS: ipratropium-albuterol 3 mL Neb 6 ML INHALATION (19:17)
[2022-06-06 19:27] VITALS: BP 135/86; PULSE 78; RESP 16; O2SAT 99
[2022-06-06 19:28] VITALS: PULSE 74
[2022-06-06 19:35] LABS: Basophils # 0.1 10^3/uL (0.0-0.1); Basophils % 0.8 %; Eosinophils # 0.3 10^3/uL (0.0-0.8); Eosinophils % 2.6 %; Hematocrit 45.1 % (42.0-52.0); Hemoglobin 15.7 g/dL (11.7-16.6); Lymphocytes # 2.5 10^3/uL (0.8-4.8); Lymphocytes % 22.8 %; Mean Corpuscular HGB Conc 34.8 g/dL (30.0-36.0); Mean Corpuscular Hemoglobin 32.6 pg (28.0-34.0); Mean Corpuscular Volume 93.6 fl (80-94); Mean Platelet Volume 9.6 fL (7.4-10.4); Monocytes # 1.2 10^3/uL (0.2-0.9); Monocytes % 10.5 %; Neutrophils # 6.99 10^3/uL (1.8-7.7); Neutrophils % 62.9 %; Nucleated Red Blood Cells % 0 %; Platelet Count 263 10^3/cmm (130-400); Red Blood Count 4.82 10^6/uL (4.1-5.3); Red Cell Distribution Width 13.2 % (12.1-15.1); White Blood Count 11.1 10^3/uL (4.0-10.0)
[2022-06-06 19:56] LABS: Alanine Aminotransferase 25 U/L (0-41); Albumin Level 4.2 g/dL (3.5-5.2); Alkaline Phosphatase 98 IU/L (40-130); Anion Gap 14.1 (5-19); Aspartate Amino Transferase 18 U/L (0-40); Blood Urea Nitrogen 14 mg/dL (6-20); Calcium 8.5 mg/dL (8.5-10.5); Carbon Dioxide 25 mmol/L (22-29); Chloride 103 mmol/L (98-107); Globulin 2.5 g/dL (1.3-4.6); Glomerular Filtration Rate 86.7 mL/min (90-130); Glucose 96 mg/dL (65-115); Osmolality Calculated 286 mOsm/kg (285-295); Potassium 4.1 mmol/L (3.5-5.1); Sodium 138 mmol/L (136-145); Total Bilirubin 0.3 mg/dL (0.15-1.2); Total Protein 6.7 g/dL (6.6-8.7)
[2022-06-06 20:17] VITALS: RESP 16
== END 2022-06-06 20:18 | disposition home or self-care (01) ==
PROVIDERS: Emergency Provider Physician Assistant; PCP Family Medicine Adult Medicine
DX: R06.2 Wheezing (principal); T50.905A Adverse effect of unspecified drugs, medicaments and biological substances, initial encounter; Z79.82 Long term (current) use of aspirin; J44.9 Chronic obstructive pulmonary disease, unspecified; I10 Essential (primary) hypertension; Z87.891 Personal history of nicotine dependence
CPT/HCPCS: 71045; 80053; 85025; 94640; 96374; 99284; J2930

== ENCOUNTER → 2022-06-16 09:22 | Outpatient (BNVA) | payer MEDICAID, SELFPAY ==
[2022-06-05 10:21] VITALS: BP 135/74; BMI 38.8
== END ==
PROVIDERS: PCP Family Medicine Adult Medicine; Visit Provider Internal Medicine Pulmonary Disease
DX: R06.02 Shortness of breath (principal); T78.40XA Allergy, unspecified, initial encounter; I25.10 Atherosclerotic heart disease of native coronary artery without angina pectoris; E66.9 Obesity, unspecified; Z68.34 Body mass index [BMI] 34.0-34.9, adult; Z12.2 Encounter for screening for malignant neoplasm of respiratory organs; Z87.891 Personal history of nicotine dependence
CPT/HCPCS: 36415; 82103; 82785; 86003; 99214

== ENCOUNTER 2022-06-27 07:10 | Outpatient (CLI) | payer MEDICAID, SELFPAY ==
[2022-06-05 10:21] VITALS: BP 135/74; BMI 38.8
[2022-06-22 11:01] LABS: Basophils # 0.1 10^3/uL (0.0-0.1); Eosinophils # 0.3 10^3/uL (0.0-0.8); Eosinophils % 2.3 %; Hematocrit 48.7 % (42.0-52.0); Hemoglobin 16.8 g/dL (11.7-16.6); Lymphocytes # 2.1 10^3/uL (0.8-4.8); Lymphocytes % 18.3 %; Mean Corpuscular HGB Conc 34.5 g/dL (30.0-36.0); Mean Corpuscular Hemoglobin 32.2 pg (28.0-34.0); Mean Corpuscular Volume 93.5 fl (80-94); Mean Platelet Volume 9.5 fL (7.4-10.4); Monocytes # 0.9 10^3/uL (0.2-0.9); Monocytes % 8.1 %; Neutrophils # 8.04 10^3/uL (1.8-7.7); Nucleated Red Blood Cells % 0 %; Platelet Count 246 10^3/cmm (130-400); Red Blood Count 5.21 10^6/uL (4.1-5.3); Red Cell Distribution Width 13.4 % (12.1-15.1); White Blood Count 11.5 10^3/uL (4.0-10.0)
[2022-06-22 11:15] LABS: Prothrombin Time (Patient) 13.5 Seconds (12.0-15.1)
[2022-06-22 11:30] LABS: Blood Urea Nitrogen 14 mg/dL (6-20); Calcium 8.6 mg/dL (8.5-10.5); Carbon Dioxide 23 mmol/L (22-29); Chloride 105 mmol/L (98-107); Glomerular Filtration Rate 115.8 mL/min (90-130); Glucose 108 mg/dL (65-115); Osmolality Calculated 291 mOsm/kg (285-295); Sodium 140 mmol/L (136-145)
[2022-06-27] VITALS (55 sets, daily range): BP systolic 100–166; BP diastolic 56–95; PULSE 67–94; RESP 10–28; TEMP 36.7–36.8; O2SAT 94–98; BMI 35.7
--- NOTE | 2022-06-27 07:30 | XACV_ITS ---
Exam Room: [facility] Ht: 185 cm Wt: 123 kg BSA: 2.56 m2 Gender: Male : 1965 Any Known Allergies: No known allergies Exam Priority: Routine Procedure(s): Procedure Description: Diagnostic procedure Procedure Description: Left Heart Catheterization Procedure Description: Venous Graft Catheterization Procedure Description: Coronary Angiography [place] [facility]; Diagnostic Cath Status: Elective Diagnostic Findings * The left main is a medium caliber vessel with no significant stenotic lesions. * The left anterior descending artery is a medium caliber vessel which appears to wrap around the LV apex. The proximal and mid segment of the LAD was found to have mild diffuse coronary calcification. As segment of the mid LAD was found to have around 50-60% stenosis. The first diagonal branch was found to have around 50% proximal tubular narrowing.. * The left circumflex artery was found to have diffuse high-grade stenosis proximally, involving the ostium-80 to 95%. The mid circumflex artery also was found to have diffuse narrowing of around 50 to 80%. * The right coronary artery is a small to medium caliber vessel with a some intimal irregularities. No significant stenotic lesions were noted. The PDA branch was found to be a very small caliber vessel with diffuse disease.. * The saphenous venous graft was found to be attached to 2 different marginal vessels. Distal to the attachment, these vessels were found to have high-grade lesions. These distal vessels were found to be relatively of small caliber. The retrograde flow into the circumflex artery appears to fill up the whole circumflex. Conclusions 1. 56-year-old white male with a history of coronary disease, status post single-vessel coronary bypass surgery in 2019, presenting with increasing chest pains. He had a Myocardial perfusion imaging which revealed ischemia in the distribution of the left circumflex artery. For further evaluation of his symptoms, a cardiac catheterization was recommended. Patient underwent left heart catheterization with coronary angiogram and graft angiogram today. The findings are as follows. 2. Multiple high-grade lesions in the circumflex artery in the proximal to mid segment involving the ostium. Moderate disease in the mid left anterior descending artery. Mild disease in the proximal segment of the diagonal branch. No significant stenotic lesions the right coronary artery. Venous graft to the obtuse marginal arteries were found to be patent. Distal to the graft attachment, high-grade stenosis were noted in these obtuse marginals, just distal to the attachment. These vessels were found to be of small caliber. Good retrograde flow was noted into the rest of the circumflex artery. LVEDP of 10 mmHg.. 3. I reviewed and discussed the cardiac catheterization data with the Dr. Hernandez. The small caliber vessels distal to the graft attachment were not found to be ideal for PCI. It was thought to be appropriate to consider IFR of the LAD lesion at the mid segment. Dr. Hernandez took over further management of this patient at this point. Interventional RX Recommendation: medical therapy and/or counseling Diagnostic RX Recommendation: other cardiac therapy w/o CABG/PCI LV EDP: 10 mmHg Left Ventriculography Findings: * LV gram was not performed because of the limitations on dye usage. The LVEDP was found to be 10 mmHg. Pressures Phase:Rest AO : 121 / 62 ( 88 ) @ 10:33:00 AM 124 / 63 ( 90 ) @ 10:33:00 AM LV : 119 / -19 / 10 @ 10:33:00 AM 124 / -16 / 12 @ 10:33:00 AM 128 / -14 / 12 @ 10:33:00 AM Valves Phase:DefaultPhase AV : 5.0 @ 10:19:32 AM AV Mean Gradient: 9.0 @ 10:19:32 AM Clinical Evaluation EBL: 5mL-10mL Procedural Details Procedure Consent Obtained. Admit Source: Out Patient. Pre-Procedure Time Out. Identified patient by full name and date of as verbalized by the patient/guarantor. Does the consent match the physician's order: Yes. Accurate & Complete Informed Consent: Yes. Inpatient/Outpatient History & Physical on Chart: Yes. If H&P is completed, is and addenduem needed: No; If yes, is the addendum complete: N/A. Visualize and Verify Site with Patient/Guarantor: N/A. Relevant Radiology Images available: N/A. The risks, benefits, and alternatives of sedation and/or procedure were discussed by physician. The patient agrees to continue. Procedure started. [facility] Clinical Fraility Score: 3: Managing Well. Public Affairs Specialist Indications: Worsening Angina. Chest Pain Symptom Assessment: Typical Angina Symptoms. Correct patient, site and procedure confirmed by cath team. Current diagnosis: Chest Pain, Abnormal perfusion test. PERRLA. Strong, equal hand bioinformatics specialist bilaterally. Lungs clear x 5 lobes. IV Site on Arrival: 20 gauge in the right anticubital. IV Fluids: 0.9% NaCl at KVO. 0 mL infused prior to labor supervisor. Pre Procedural Pulses: bilateral radial was 1+. Pre Procedural Pulses: bilateral dorsalis pedis was 1+. Pre Procedural Pulses: bilateral posterior tibial was Doppled. Oxygen started at 2liters/min via nasal canula. right groin was prepped with chloroprep then draped in the usual sterile fashion. Physician notified. Baseline sample Acquired. HR: 70 BPM. Physician arrived. Physician scrubbed in. Immediate Pre-Procedure Time Out. Correct Patient: Yes; Correct Procedure: Yes; Correct Site: Yes; Correct Patient Position: Yes; Correct Supplies: Yes; Dried Flammable Prep: Yes; Blood Products Available: No;. Lidocaine 1% infiltrated to the right groin. Arterial access obtained with micropuncture set. A 5 greenlandic JL4 catheter in over wire. Wire out. Multiple views taken of left coronary artery. Catheter removed over the standard wire. A 5 greenlandic JR4 catheter in over wire. Wire out. Multiple views taken of right coronary artery. SVG's to OM visualized and patent. Dr. Hull called to lab to review cine films. EDP Sample taken: LV 119/-20,10; HR: 79 BPM; SpO2: 99%. Pullback taken: LV 128/-15,12; AO 121/62(88); Mean: 9mmHg, Peak to Peak: 5mmHg, SEP: 21sec/min; HR: 78 BPM; SpO2: 98%. LV EDP: 10. Physician scrubbed out. Dr. Hull scrubbed in. Sheath upsized to a 6 Fr. Sheath removed. Holding manual pressure. Procedure aborted. Post Procedure: Pulses reassessed and unchanged. PERRLA. Strong, equal hand bioinformatics specialist bilaterally. No VTE prophylaxis required. Medication's Wasted: Heparin = 4500 unit. Total IV fluids: 311 mL. Complications: Hematoma. Estimated blood loss: 5mL-10mL. Post-op diagnosis: CAD. Responsiveness - Normal response to verbal stimuli; alert and oriented, PERRLA. Airway - Unaffected, no intervention required; spontaneous ventilation. Circulation: W/N/L, pulses unchanged. Nausea/Vomiting: N/A. Manual pressure held until hemostasis was achieved. Sterile Op-site applied to the puncture site. Hematoma noted. No oozing noted. Procedure completed. Patient transferred by bed to ICU. Vital chart was stopped. Access Site Site: Right Femoral artery Sheath Size: 5 Fr Hemostasis Method: Manual Compression Hemostasis Success: Successful Procedure Medications Start: 8:56 AM Stop: 8:56 AM Medication: Fentanyl Amount: 50 mcg Route: I.V. Start: 8:56 AM Stop: 8:56 AM Medication: Versed Amount: 1 mg Route: I.V. Start: 9:04 AM Stop: 9:04 AM Medication: Versed Amount: 1 mg Route: I.V. Start: 9:13 AM Stop: 9:13 AM Medication: Fentanyl Amount: 25 mcg Route: I.V. Start: 9:22 AM Stop: 9:22 AM Medication: Heparin Amount: 1500 units Route: I.V. Start: 9:30 AM Stop: 9:30 AM Medication: Versed Amount: 1 mg Route: I.V. Start: 9:34 AM Stop: 9:34 AM Medication: 0.9% Saline Amount: 250 ml Route: I.V. bolus Start: 9:48 AM Stop: 9:48 AM Medication: Versed Amount: 1 mg Route: I.V. Start: 9:48 AM Stop: 9:48 AM Medication: Fentanyl Amount: 25 mcg Route: I.V. I, the attending physician, have reviewed and verified all procedure medications. Yes, all medications given per verbal order History/Risk Factors Hypertension: Yes Dyslipidemia: Yes Peripheral Arterial Disease (PAD): No Myocardial Infarction (MT): No Obesity: No Renal Disease: No Tobacco Use: Former Prior Interventions PCI: No CABG: Yes Valve Surgery: No Report Signatures Finalized by Dr Brennan Driver MD [facility] on 06/28/2022 07:54 AM
[2022-06-27] MEDS: diphenhydrAMINE 50 mg Capsule PO (08:37)
--- NOTE | 2022-06-27 08:41 | W.PM.OPSUD ---
Surgery/Procedure H&P Update DATE OF PROCEDURE: June 27, 2022 DATE H&P PERFORMED: 07/02/22 H&P UPDATE INFORMATION: I have reviewed H&P completed within last 30 days, I have examined patient prior to procedure and No changes to prior documentation PREOP DIAGNOSIS: ASHD PRIMARY INDICATION FOR PROCEDURE: CP/ Abnormal stress testr, History of CABG PLANNED PROCEDURE: Operation Date: 06/27/22 08:30 Proposed Procedures p Cardiac Catheterization(Left) - Brennan Driver MD PATIENT REASSESSED PRIOR TO SEDATION, WITH NO CHANGE NOTED: Yes PHYSICAL EXAM: alert, oriented x 3, clear to auscultation bilaterally and regular rate & rhythm AIRWAY EVAL/ANESTHESIA PLAN: normal airway, see other exam findings, ASA III, Monitored Anesthesia, Local Anesthesia, Risks, benefits & alternatives of sedation and/or procedure discussed and Patient agrees to continue as planned
[2022-06-27] MEDS: sodium chloride 0.9% 1,000 ML 100 ML IV (10:25)
--- NOTE | 2022-06-27 10:44 | PC.NURSE ---
received into room 111-2 from [employer] conservation laborer via bed at 1025.report received.pt is drowsy but easily awakened.sr on monitor.denies pain.right femoral sheath pulled by [employer] laborer personnel at approx 0955.right groin with drsg dry and intact.approx 4 cm hematoma reported by [employer] laborer staff at hand off,located medial and below former sheath site.moderate pressure applied to disperse hematoma.no bruising noted.pt instructed in activity restrictions s/p femoral artery procedure..and instructed to notify staff for any bleeding,pain,sob,numbness...or for any concerns at all.pt verb understanding of instructions.
[2022-06-27] MEDS: isosorbide mononitrate ER 30 mg Tablet PO (11:32)
--- NOTE | 2022-06-27 15:28 | PC.NURSE ---
return to cardiac lab animal technologist at this time.
--- NOTE | 2022-06-27 17:34 | PC.NURSE ---
received from cardiac custodial laborer at 1645.report received.pt is drowsy but easily aroused.left femoral arterial sheath pulled at 1705.manual pressure held x 20 min.no hematoma formation noted.right leg remained warm to touch and with brisk capillary refill.palpable dp pulse noted in right foot.vss.pt tolerated procedure well.pt instructed in activity restrictions s/p femoral artery sheath...and instructed to notify staff for any pain,bleeding,numbness..or for any concerns at all.pt verb understanding of instructions.
[2022-06-27] MEDS: potassium chloride ER 10 mEq Tablet PO (18:04)
[2022-06-27] MEDS: FUROsemide 20 mg Tablet 10 MG PO (18:04)
--- NOTE | 2022-06-27 18:40 | PC.NURSE ---
transfer to room 276-2 at this time,via bed.
--- NOTE | 2022-06-27 19:35 | PC.NURSE ---
transferred to room 276-2 via bed.report given to edilma sanabria
[2022-06-28 00:42] VITALS: BP 123/70; PULSE 73; RESP 17; TEMP 36.8; O2SAT 97
[2022-06-28] MEDS: sodium chloride 0.9% 1,000 ML 100 ML IV (02:14)
[2022-06-28 04:00] VITALS: BP 119/67; PULSE 72; RESP 18; TEMP 36.6; O2SAT 98
--- NOTE | 2022-06-28 04:59 | PC.NURSE ---
Drsg to right and left groin dry and intact no swelling hematoma or bleeding noted. Pt had no c/o pain or discomfort at the present time.
[2022-06-28 06:00] VITALS: PULSE 80
--- NOTE | 2022-06-29 14:07 | PC.NURSE ---
Called renexa 500mg BID PO in to [facility] pharmacy attempted to call patient with instructions per provider no answer on patients cell phone message left faxed information to [facility] for follow up appointment
--- NOTE | 2022-06-29 17:30 | PC.NURSE ---
spoke with patient this afternoon educated patient on new medications called in to pharmacy aftercare for procedure sites and s/s of infection and complications patient verbalized understanding, Patient stated something similar to I have some pain in the sites and I can hardly walk. patient educated on expected heal time and after care as well as the importance of scheduling follow up appointments patient verbalized understanding
--- NOTE | 2022-07-01 08:51 | PM.MISC ---
Miscellaneous Note Note: Dr. Driver requested to perform an IFR on the ramus intermedius artery. Earlier in the day the patient underwent coronary angiography. During the changing of the sheath, the wire exited the artery and the sheath position was lost. The procedure was stopped at that time he was brought back to the catheterization laboratory later in the day. Initially, an attempt was made to perform the procedure via the right radial artery. Sheath was placed in the artery however there was an obstruction of the radial artery at the level of the elbow. Ultrasound was required to locate the left common femoral artery. Sheath was placed in this vessel. A guiding catheter was placed in the left main coronary artery. The IFR wire was placed across the suspected lesion in the ramus intermedius artery. Measurement of the IFR revealed it to be 0.95 which is nonhemodynamically significant. Intervention was not necessary. Patient was taken back to his room in stable condition.
== END 2022-06-28 08:00 | disposition left against medical advice (07) ==
LOC: CCL 08:32 → CSU 09:05 → MEDSURG 18:29
PROVIDERS: Internal Medicine Cardiovascular Disease; PCP Family Medicine Adult Medicine; Visit Provider Internal Medicine Cardiovascular Disease
DX: I25.118 Atherosclerotic heart disease of native coronary artery with other forms of angina pectoris (principal); R07.9 Chest pain, unspecified; I10 Essential (primary) hypertension; Z95.1 Presence of aortocoronary bypass graft; E78.00 Pure hypercholesterolemia, unspecified; Z98.890 Other specified postprocedural states; E03.9 Hypothyroidism, unspecified; J44.9 Chronic obstructive pulmonary disease, unspecified; Z87.891 Personal history of nicotine dependence; F60.1 Schizoid personality disorder
CPT/HCPCS: 36415; 80048; 85025; 85610; 86850; 86900; 93459; 93571; 94760; 96360; 96361; 99152; 99153; C1769; C1887; C1894; J1644; J2250; J3010; J3490; J7030; Q0163; Q9967

== ENCOUNTER → 2022-07-03 08:11 | Outpatient (BNVA) | payer MEDICAID, SELFPAY ==
[2022-06-05 10:21] VITALS: BP 135/74; BMI 38.8
== END ==
PROVIDERS: PCP Family Medicine Adult Medicine; Visit Provider Nurse Practitioner Family
DX: I25.10 Atherosclerotic heart disease of native coronary artery without angina pectoris (principal); I10 Essential (primary) hypertension; Z87.891 Personal history of nicotine dependence
CPT/HCPCS: 36415; 80048; 99214

== ENCOUNTER → 2022-07-18 08:51 | Outpatient (BNVA) | payer MEDICAID, SELFPAY ==
[2022-06-05 10:21] VITALS: BP 135/74; BMI 38.8
== END ==
PROVIDERS: PCP Family Medicine Adult Medicine; Visit Provider Nurse Practitioner Family
DX: I25.10 Atherosclerotic heart disease of native coronary artery without angina pectoris (principal); I10 Essential (primary) hypertension; R94.39 Abnormal result of other cardiovascular function study; Z87.891 Personal history of nicotine dependence
CPT/HCPCS: 99213

== ENCOUNTER 2022-09-21 12:26 | Emergency (ER) | payer MEDICAID, SELFPAY ==
[2022-06-05 10:21] VITALS: BP 135/74; BMI 38.8
--- NOTE | 2022-09-21 12:40 | ECG_ITS ---
[facility] Test Date: 2022-09-21 Pat Name: Gurpreet Velez Department: Room: Gender: Male Dietetics Director: : [id number] Requested By: Tyler Alas Order Number: [id number] Katie MD: Gemini Barbosa M.D. Measurements Intervals [place] Rate: 80 P: 39 DC: 183 QRS: 20 QRSD: 109 T: 46 QT: 365 QTc: 421 Interpretive Statements SINUS RHYTHM Compared to ECG 04/22/2015 18:21:02 No significant changes Electronically Signed On 09-21-2022 18:03:53 CDT by Gemini Barbosa M.D. [email or web address]
--- NOTE | 2022-09-21 12:40 | XR_ITS ---
WS: [id number] Exam: XR chest 1V portable [id number] Date/Time of Exam: 09/21/2022 1:00 PM Reason For Exam: cp Comparison 06/06/2022. Lungs are fully inflated and clear. Heart size top limits normal. The mediastinum is normal in contou r. Signs of previous CABG surgery and median sternotomy. Bilateral shoulder prostheses partially visu alized. Bony elements are intact. No pleural effusion. XR/XR chest 1V portable [id number] IMPRESSION: 1. No acute cardiopulmonary finding. 2. There may be some mild interval cardiac enlargement since previous exam. Hea rt size still upper limits normal.
[2022-09-21 12:53] VITALS: BP 138/79; PULSE 84; RESP 18; TEMP 36.1; O2SAT 96; BMI 35.6
[2022-09-21 12:56] VITALS: BP 140/74; PULSE 84; RESP 18; TEMP 36.1; O2SAT 96
--- NOTE | 2022-09-21 13:02 | ED_ITS ---
HPI - Chest Pain General: Chief Complaint: Chest Pain Stated Complaint: chest pain Time Seen by Provider: 09/21/22 13:00 History of Present Illness: Mr. Dobbins is a 57-year-old gentleman with history of known CAD, prior failed cardiac PCI, hypertension, hyperlipidemia, COPD presenting to the emergency department due to chest pain. He reports onset of symptoms approximately 3 days ago in the pinpoint left anterior chest. He does have associated shortness of breath and diaphoresis at times. No radiation or other typical cardiac features. Reports that this is more constant than previous. He did take a nitro which improved his symptoms and for some reason was trying avoid taking nitro until he was in the waiting room and felt like he had to. No other specific changes in health, exacerbating, or alleviating factors identified. Onset (ago): day(s) Timing of current episode: constant Prior episodes: Yes Onset: during rest Pain location: left chest Pain radiation: none Severity: moderate Exacerbating factors: exertion and inspiration Associated symptoms: Reports diaphoresis and dyspnea Review of Systems General: Reports: 10 or more systems reviewed and unremarkable except in HPI and below Const: Reports: diaphoresis Resp: Reports: dyspnea PFSH ED PFSH: Medical History Allergies Asthma Atherosclerotic heart disease of [place] coronary artery with other forms of angina pectoris Chronic bilateral back pain Colon polyps COPD (chronic obstructive pulmonary disease) DJD (degenerative joint disease) High cholesterol Hypertension Hypothyroidism Surgical History History of open heart surgery - with CABG and Dr Grullon Surgeon in [place] History of replacement of both shoulder joints 2019 History of right knee surgery Reattach patella Hx of colonoscopy with polypectomy 12/31/[address] Quiroga Family History Father CAD (coronary artery disease), Onset Age: 54 Dementia Diabetes Family/Other CAD (coronary artery disease) Cancer Stroke Mother Cancer Denies family history of Clotting disorder Chronic kidney disease (CKD) Suicide Anesthesia complication Bleeding disorder Lung disease Social History Smoking and tobacco status: former smoker Quit status (tobacco): has quit using tobacco Year quit tobacco: 2009 Former quit date comment: 1ppd x 30 years Second hand smoke exposure: No Alcohol intake: current Alcohol intake frequency: holidays/special occasions only Alcohol type: beer Desire information about alcohol rehabilitation?: No Counseling given: No Desire information about substance/drug rehabilitation?: No Counseling given: No Adopted: No Caregiver/support person: No Lives independently: Yes Household members: none Housing: Manufactured/Mobile home Marital status: Single Number of children: 3 Number of grandchildren: 1 Highest education level completed: GED or Equivalent service: No Current occupational status: retired and disabled Current occupational exposures/hazards: No Pets and animals: Yes (inside) Pets & animals: dog(s) History of recent travel: No Leisure activites: other Leisure activities details: nothing Sexually active: No Current gender identity: Male Jenny/Sabianism: Islam Special jenny needs: No Agree to transfusion: Yes Financial difficulty paying for basics: Not Very Hard Physical Exam Const: COMMON NORMALS: alert GENERAL APPEARANCE: cooperative and well developed HENMT: COMMON NORMALS: normocephalic and atraumatic HEAD & SCALP: normocephalic and atraumatic Eye: COMMON NORMALS: conjunctivae normal CONJUNCTIVA: Yes conjunctivae normal SCLERA: sclerae normal Neck/C-Spine: COMMON NORMALS: supple GENERAL: Yes trachea midline Chest: OTHER: point ttp without obvious cause L ant chest wall Resp: COMMON NORMALS: normal respiratory effort and clear to auscultation bilaterally EFFORT & INSPECTION: Yes able to speak in complete sentences AUSCULTATION: clear to auscultation bilaterally Cardio: COMMON NORMALS: regular rate and regular rhythm RATE: regular rate RHYTHM: regular rhythm GI: COMMON NORMALS: Soft to palpation PALPATION: Yes Soft to palpation and No Tenderness to palpation present (GI) Extremity: GENERAL: Yes normal exam except as noted and No edema Neuro: COMMON NORMALS: moves all extremities SENSORIUM/ORIENTATION: Yes alert and No Orientation impaired Psych: COMMON NORMALS: mental status grossly normal and Normal thought process present THOUGHT PROCESS: Normal thought process present Course Vital Signs: Vital signs: Vital Signs Temperature 97 F L 09/21/22 12:56 Pulse Rate 84 09/21/22 12:56 Respiratory Rate 18 09/21/22 12:56 Blood Pressure 140/74 09/21/22 12:56 Pulse Oximetry 96 09/21/22 12:56 Oxygen Delivery Me thod 09/21/22 12:56 MDM - Chest Pain Medical Decision Making 57-year-old gentleman with cardiac history presenting to the emergency department due to chest pain. Mix of typical and atypical features. Patient is nontoxic. EKG shows sinus rhythm, no STEMI. Labs notable for mild leukocytosis, normal hemoglobin. No acute electrolyte or metabolic abnormality to explain symptoms. Troponin negative. Chest x-ray with no lobar consolidation or pneumothorax. Prior Twister Tender report reviewed. Patient left AGAINST MEDICAL ADVICE prior to completion of ED evaluation. Medical Records I reviewed the patient's medical records. Lab Data I reviewed the patient's lab results. : 09/21/22 13:28 09/21/22 13:28 Radiology Impressions Chest X-Ray 09/21/22 12:40 IMPRESSION: 1. No acute cardiopulmonary finding. 2. There may be some mild interval cardiac enlargement since previous exam. Heart size still upper limits normal. Laboratory Results WBC 10.7 10^3/uL (4.0-10.0) H 09/21/22 13: RBC 4.77 10^6/uL (4.1-5.3) 09/21/22 13:28 Hgb 16.0 g/dL (11.7-16.6) 09/21/22 13:28 Hct 47.3 % (42.0-52.0) 09/21/22 13: MCV 99.2 fl (80-94) H 09/21/22 13:28 MCH 33.5 pg (28.0-34.0) 09/21/22 13:28 MCHC 33.8 g/dL (30.0-36.0) 09/21/22 13:28 RDW 13.5 % (12.1-15.1) 09/21/22 13:28 Plt Count 271 10^3/cmm (130-400) 09/21/22 13:28 MPV 9.4 fL (7.4-10.4) 09/21/22 13:28 Neut % (Auto) 60.7 % 09/21/22 13:28 Lymph % (Auto) 23.4 % 09/21/22 13:28 [place] % (Auto) 9.8 % 09/21/22 13:28 Eos % (Auto) 4.4 % 09/21/22 13:28 Baso % (Auto) 1.2 % 09/21/22 13:28 Neut # (Auto) 6.52 10^3/uL (1.8-7.7) 09/21/22 13:28 Lymph # (Auto) 2.5 10^3/uL (0.8-4.8) 09/21/22 13:28 [place] # (Auto) 1.1 10^3/uL (0.2-0.9) H 09/21/22 13:28 Eos # (Auto) 0.5 10^3/uL (0.0-0.8) 09/21/22 13:28 Baso # (Auto) 0.1 10^3/uL (0.0-0.1) 09/21/22 13:28 Nucleated RBC % (auto) 0 % 09/21/22 13:28 Nucleated RBCs # 0.0 /100WBC 09/21/22 13:28 Sodium 138 mmol/L (136-145) 09/21/22 13:28 Potassium 4.6 mmol/L (3.5-5.1) 09/21/22 13:28 Chloride 105 mmol/L (98-107) 09/21/22 13:28 Carbon Dioxide 24 mmol/L (22-29) 09/21/22 13:28 Anion Gap 13.6 (5-19) 09/21/22 13:28 BUN 15 mg/dL (6-20) 09/21/22 13:28 Creatinine 0.8 mg/dL (0.7-1.2) 09/21/22 13:28 GFR Calculation 98.9 mL/min (90-130) 09/21/22 13:28 Glucose 96 mg/dL (65-115) 09/21/22 13:28 Calculated Osmolality 287 mOsm/kg (285-295) 09/21/22 13:28 Calcium 8.6 mg/dL (8.5-10.5) 09/21/22 13:28 Total Bilirubin 0.3 mg/dL (0.15-1.2) 09/21/22 13:28 AST 19 U/L (0-40) 09/21/22 13:28 ALT 34 U/L (0-41) 09/21/22 13:28 Alkaline Phosphatase 94 U/L (40-130) 09/21/22 13:28 Troponin T Baseline 9 ng/L (0-15) 09/21/22 13:28 NT-Pro-B Natriuret Pep 170 pg/mL (0-125) H 09/21/22 13:28 Total Protein 6.9 g/dL (6.6-8.7) 09/21/22 13:28 Albumin 3.8 g/dL (3.5-5.2) 09/21/22 13:28 Globulin 3.1 g/dL (1.3-4.6) 09/21/22 13:28 Discharge Plan Discharge Patient Disposition: Left Against Medical Advice Clinical Impression: Chest pain Condition: Stable Prescriptions: No Action albuterol sulfate 90 mcg/actuation HFA aerosol inhaler 2 puff inhalation Q6H PRN (Reason: shortness of breath or wheezing) Qty: 8.5 5RF aspirin [Adult Aspirin Regimen] 81 mg tablet,delayed release (DR/EC) 81 mg PO DAILY Qty: 90 3RF nitroglycerin 0.4 mg tablet, sublingual 0.4 mg sublingual Q5M PRN (Reason: chest pain) 30 Days Qty: 30 3RF Rx Instructions: until response; do not exceed 3 doses per episode budesonide-formoterol [Symbicort] 160-4.5 mcg/actuation HFA aerosol inhaler 2 puff inhalation BID Qty: 10.2 3RF amlodipine 5 mg tablet 5 mg PO DAILY Qty: 90 3RF isosorbide mononitrate 60 mg tablet extended release 24 hr 60 mg PO DAILY Qty: 90 5RF metoprolol succinate [Toprol XL] 25 mg tablet extended release 24 hr 25 mg PO DAILY Qty: 90 5RF loratadine 10 mg tablet 10 mg PO DAILY Qty: 90 3RF celecoxib 200 mg capsule 200 mg PO BID Qty: 60 3RF hydrocodone-acetaminophen 10-325 mg tablet 1 tab PO BID PRN (Reason: back pain) 30 Days Qty: 60 0RF Rx Instructions: Refill on or after 30-day intervals albuterol sulfate 2.5 mg /3 mL (0.083 %) solution for nebulization 2.5 mg inhalation Q4H PRN (Reason: shortness of breath or wheezing) Qty: 180 1RF ranolazine [Ranexa] 500 mg tablet extended release 12 hr 500 mg PO BID Qty: 180 3RF atorvastatin 40 mg tablet See Rx Instructions .ROUTE .COMPLEX Qty: 30 2RF Dose Instruction: Take 1 tablet by mouth once daily Rx Instructions: Take 1 tablet by mouth once daily potassium chloride 10 mEq tablet extended release See Rx Instructions .ROUTE .COMPLEX Qty: 60 3RF Dose Instruction: TAKE 1 TABLET BY MOUTH TWICE DAILY FOR HYPERTENSION Rx Instructions: TAKE 1 TABLET BY MOUTH TWICE DAILY FOR HYPERTENSION levothyroxine 100 mcg tablet See Rx Instructions .ROUTE .COMPLEX Qty: 30 0RF Dose Instruction: Take 1 tablet by mouth once daily Rx Instructions: Take 1 tablet by mouth once daily trazodone 100 mg tablet 200 mg PO BEDTIME PRN (Reason: Sleep) Narcan 4 mg/actuation [place],Non-Aerosol 4 mg INTRANASAL Q2M PRN (Reason: overdose) Rx Instructions: spray 1 dose into ONE nostril; alternate nostrils w each dose until help arrives baclofen 20 mg tablet 20 mg PO TID PRN (Reason: chronic back pain) gabapentin 300 mg capsule 300 mg PO BID furosemide 20 mg tablet 20 mg PO BID PRN (Reason: Edema) Referrals: Juan Carlos Dawson MD [Primary Care Provider] - Coding Level of Care Code ED Staff Air Defense Officer for Zeina Menchaca
[2022-09-21] MEDS: aspirin 81 mg Chew Tablet 324 MG PO (13:30)
[2022-09-21 13:39] LABS: Basophils # 0.1 10^3/uL (0.0-0.1); Basophils % 1.2 %; Eosinophils # 0.5 10^3/uL (0.0-0.8); Eosinophils % 4.4 %; Hematocrit 47.3 % (42.0-52.0); Lymphocytes # 2.5 10^3/uL (0.8-4.8); Lymphocytes % 23.4 %; Mean Corpuscular HGB Conc 33.8 g/dL (30.0-36.0); Mean Corpuscular Hemoglobin 33.5 pg (28.0-34.0); Mean Corpuscular Volume 99.2 fl (80-94); Mean Platelet Volume 9.4 fL (7.4-10.4); Monocytes # 1.1 10^3/uL (0.2-0.9); Monocytes % 9.8 %; Neutrophils # 6.52 10^3/uL (1.8-7.7); Neutrophils % 60.7 %; Nucleated Red Blood Cells % 0 %; Platelet Count 271 10^3/cmm (130-400); Red Blood Count 4.77 10^6/uL (4.1-5.3); Red Cell Distribution Width 13.5 % (12.1-15.1); White Blood Count 10.7 10^3/uL (4.0-10.0)
[2022-09-21 13:58] LABS: Troponin(5th) Baseline 9 ng/L (0-15)
--- NOTE | 2022-09-21 13:59 | PC.PHAR ---
pt states he takes care of his own medications-notes are made in the pharmacy comments on some of the medications entered
[2022-09-21 14:04] LABS: Alanine Aminotransferase 34 U/L (0-41); Albumin Level 3.8 g/dL (3.5-5.2); Alkaline Phosphatase 94 U/L (40-130); Anion Gap 13.6 (5-19); Aspartate Amino Transferase 19 U/L (0-40); Blood Urea Nitrogen 15 mg/dL (6-20); Calcium 8.6 mg/dL (8.5-10.5); Carbon Dioxide 24 mmol/L (22-29); Chloride 105 mmol/L (98-107); Globulin 3.1 g/dL (1.3-4.6); Glomerular Filtration Rate 98.9 mL/min (90-130); Glucose 96 mg/dL (65-115); NT Pro B Type Natriuretic Pept 170 pg/mL (0-125); Osmolality Calculated 287 mOsm/kg (285-295); Potassium 4.6 mmol/L (3.5-5.1); Sodium 138 mmol/L (136-145); Total Bilirubin 0.3 mg/dL (0.15-1.2); Total Protein 6.9 g/dL (6.6-8.7)
== END 2022-09-21 14:35 | disposition left against medical advice (07) ==
PROVIDERS: Emergency Provider Emergency Medicine; PCP Family Medicine Adult Medicine
DX: R07.9 Chest pain, unspecified (principal); Z79.82 Long term (current) use of aspirin; Z87.891 Personal history of nicotine dependence; I25.10 Atherosclerotic heart disease of native coronary artery without angina pectoris; J44.9 Chronic obstructive pulmonary disease, unspecified; I10 Essential (primary) hypertension
CPT/HCPCS: 36415; 71045; 80053; 83880; 84484; 85025; 93005; 99285

== ENCOUNTER → 2022-09-25 10:31 | Outpatient (BNVA) | payer MEDICAID, SELFPAY ==
[2022-06-05 10:21] VITALS: BP 135/74; BMI 38.8
== END ==
PROVIDERS: PCP Family Medicine Adult Medicine; Visit Provider Internal Medicine Cardiovascular Disease
DX: I25.118 Atherosclerotic heart disease of native coronary artery with other forms of angina pectoris (principal); Z87.891 Personal history of nicotine dependence; E66.9 Obesity, unspecified; Z68.37 Body mass index [BMI] 37.0-37.9, adult; Z98.890 Other specified postprocedural states; E78.00 Pure hypercholesterolemia, unspecified; I10 Essential (primary) hypertension; F60.1 Schizoid personality disorder
CPT/HCPCS: 99213; 99214

== ENCOUNTER 2023-01-22 02:34 | Emergency (ER) | payer MEDICAID, SELFPAY ==
[2022-06-05 10:21] VITALS: BP 135/74; BMI 38.8
--- NOTE | 2023-01-22 02:36 | XRR_ITS ---
PROCEDURE INFORMATION: Exam: XR Chest Exam date and time: 01/22/2023 3:08 AM Age: 57 years old Clinical indication: Cough; Prior surgery; Surgery date: 6+ months; Surgery type: Cabg TECHNIQUE: Imaging protocol: Radiologic exam of the chest. Views: 1 view. COMPARISON: CR XR chest 1V portable [id number] 09/21/2022 1:10 PM FINDINGS: Lungs: Unremarkable. No consolidation. Pleural spaces: Unremarkable. No pleural effusion. No pneumothorax. Heart/Mediastinum: CABG. Unremarkable cardiac silhouette. Bones/joints: Bilateral humeral arthroplasty. XR/XR chest 1V portable [id number] IMPRESSION: Negative for acute chest abnormality.
[2023-01-22 02:50] VITALS: BP 164/83; PULSE 88; RESP 18; TEMP 36.8; O2SAT 97; BMI 38.6
[2023-01-22 03:36] LABS: Rapid Strep A Test Negative (Negative)
[2023-01-22 03:50] LABS: Influenza A by IFA negative (Negative); Influenza B by IFA negative (Negative); SARS Covid-2 Antigen negative (Negative)
[2023-01-22] MEDS: predniSONE 20 mg Tablet 60 MG PO (04:06)
[2023-01-22] MEDS: azithromycin 250 mg Tablet 500 MG PO (04:06)
[2023-01-22] MEDS: guaiFENesin-codeine UDC 10 mL PO (04:06)
--- NOTE | 2023-01-22 04:57 | W.ED.URI ---
HPI - URI/Sore Throat General: Chief Complaint: Upper Respiratory Infection Stated Complaint: Cough\Running Nose\Sore Throat Time Seen by Provider: 01/22/23 03:06 Source: patient History of Present Illness: 57-year-old male gentleman with a history of coronary disease. He presents with 3 days of cough, congestion, and sore throat. Cough is been unrelenting. No fever, no vomiting or diarrhea, no rash. He is somewhat short of breath with lying down. No chest pain. MD elicited complaint: cough, sore throat, rhinorrhea and nasal congestion Pertinent past history: other Onset (ago): day(s) Consistency: constant Severity: moderate Description of mucous: clear Exacerbating factors: swallowing and speaking Associated symptoms: Reports congestion, cough, nasal congestion, rhinorrhea and short of breath; Deny abdominal pain, chills, chest pain, diarrhea, fever(s), headache(s), nausea, stiffness or vomiting Review of Systems Const: Denies: fever(s), chills or body aches Eyes: Denies: change in vision ENMT: Reports: nasal congestion Card: Denies: chest pain Resp: Reports: dyspnea, non-productive cough and wheezing; Denies: productive cough GI: Denies: abdominal pain, nausea, vomiting or diarrhea Skin/Breast: Denies: rash Neuro: Denies: headache(s), weakness in extremities, dizziness or confusion PFS ED PFSH: Medical History Allergies Asthma Atherosclerotic heart disease of [place] coronary artery with other forms of angina pectoris Chronic bilateral back pain Colon polyps COPD (chronic obstructive pulmonary disease) DJD (degenerative joint disease) High cholesterol Hypertension Hypothyroidism Surgical History History of open heart surgery - with CABG and Dr Grullon Surgeon in [place] History of replacement of both shoulder joints 2019 History of right knee surgery Reattach patella Hx of colonoscopy with polypectomy 12/31/[address] Quiroga Family History Father CAD (coronary artery disease), Onset Age: 54 Dementia Diabetes Family/Other CAD (coronary artery disease) Cancer Stroke Mother Cancer Denies family history of Clotting disorder Chronic kidney disease (CKD) Suicide Anesthesia complication Bleeding disorder Lung disease Social History Smoking and tobacco status: former smoker Quit status (tobacco): has quit using tobacco Year quit tobacco: 2009 Former quit date comment: 1ppd x 30 years Second hand smoke exposure: No Alcohol intake: current Alcohol intake frequency: holidays/special occasions only Alcohol type: beer Desire information about alcohol rehabilitation?: No Counseling given: No Desire information about substance/drug rehabilitation?: No Counseling given: No Adopted: No Caregiver/support person: No Lives independently: Yes Household members: none Housing: Manufactured/Mobile home Marital status: Single Number of children: 3 Number of grandchildren: 1 Highest education level completed: GED or Equivalent service: No Current occupational status: retired and disabled Current occupational exposures/hazards: No Pets and animals: Yes (inside) Pets & animals: dog(s) Leisure activites: other Leisure activities details: nothing Sexually active: No Current gender identity: Male Jenny/Confucianist: Catholic Special jenny needs: No Agree to transfusion: Yes Financial difficulty paying for basics: Not Very Hard Physical Exam Const: COMMON NORMALS: no acute distress GENERAL APPEARANCE: cooperative; not ill appearing and not frail appearing NUTRITIONAL APPEARANCE: obese HENMT: COMMON NORMALS: normocephalic, atraumatic and Normal external nose present HEAD & SCALP: normocephalic and atraumatic FACE & SINUS: normal facial exam and face symmetric NOSE: Normal external nose present Eye: COMMON NORMALS: Equal, round and reactive pupils present and EOMs intact bilaterally PUPIL: Yes Equal, round and reactive pupils present Neck/C-Spine: GENERAL: Yes trachea midline Chest: CHEST: Yes Symmetrical chest wall rise Resp: COMMON NORMALS: normal respiratory effort, No retractions and No use of accessory muscles AUSCULTATION: wheezes Cardio: COMMON NORMALS: regular rate and regular rhythm RATE: regular rate RHYTHM: regular rhythm GI: COMMON NORMALS: Normal to inspection, nondistended, normoactive bowel sounds present Extremity: COMMON NORMALS: no pedal edema Neuro: RODDY COMA SCALE: document GCS findings Roddy coma scale eye opening: Spontaneous Roddy coma scale verbal response: Orientated [place] coma scale motor response: [place] commands Roddy coma scale total score: 15 SENSORY EXAM: Yes extremities (intact) Psych: COMMON NORMALS: speech normal SPEECH: Yes normal speech Skin: COMMON NORMALS: no rashes or lesions noted GENERAL SKIN EXAM: no rashes or lesions noted Course Vital Signs: Vital signs: Vital Signs Temperature 98.2 F 01/22/23 02:50 Pulse Rate 88 01/22/23 02:50 Respiratory Rate 18 01/22/23 02:50 Blood Pressure 164/83 01/22/23 02:50 Pulse Oximetry 97 01/22/23 02:50 Oxygen Delivery Me thod 01/22/23 02:50 MDM - URI/Sore Throat Medical Decision Making Patient is not hypoxic. Vitals are stable. He is experiencing no chest pain. He is wheezing. Swabs for flu COVID and strep are negative. Chest x-ray is negative. He will be prescribed steroid and a tapering dose, instructed to use albuterol 4 every 4 hours while awake for 48 hours, and will get antibiotics. He knows to return for worsening symptoms. Lab Data Radiology Impressions Chest X-Ray 01/22/23 02:36 IMPRESSION: Negative for acute chest abnormality. Laboratory Results Influenza Type A Ag negative (Negative) 01/22/23 02:55 Influenza Type B Ag negative (Negative) 01/22/23 02:55 SARS-CoV-2 Ag (Rapid) negative (Negative) 01/22/23 02:55 Group A Strep Rapid Negative (Negative) 01/22/23 02:55 Discharge Plan Discharge Patient Disposition: Home Clinical Impression: Acute bronchitis Condition: Stable Prescriptions: New Medrol ([place]) 4 mg tablets,dose pack See Rx Instructions .ROUTE .COMPLEX Qty: 21 0RF Rx Instructions: orally per package directions Zithromax 250 mg tablet See Rx Instructions .ROUTE .COMPLEX Qty: 6 0RF Rx Instructions: For 250 mg dose pack: take 500 mg today (day 1), then 250 mg for 4 days (days 2-5) [id number] 30-10-100 mg/5 mL syrup 10 ml PO Q6H PRN (Reason: cough) Qty: 120 0RF No Action albuterol sulfate 90 mcg/actuation HFA aerosol inhaler 2 puff inhalation Q6H PRN (Reason: shortness of breath or wheezing) Qty: 8.5 5RF aspirin [Adult Aspirin Regimen] 81 mg tablet,delayed release (DR/EC) 81 mg PO DAILY Qty: 90 3RF nitroglycerin 0.4 mg tablet, sublingual 0.4 mg sublingual Q5M PRN (Reason: chest pain) 30 Days Qty: 30 3RF Rx Instructions: until response; do not exceed 3 doses per episode budesonide-formoterol [Symbicort] 160-4.5 mcg/actuation HFA aerosol inhaler 2 puff inhalation BID Qty: 10.2 3RF amlodipine 5 mg tablet 5 mg PO DAILY Qty: 90 3RF isosorbide mononitrate 60 mg tablet extended release 24 hr 60 mg PO DAILY Qty: 90 5RF metoprolol succinate [Toprol XL] 25 mg tablet extended release 24 hr 25 mg PO DAILY Qty: 90 5RF loratadine 10 mg tablet 10 mg PO DAILY Qty: 90 3RF celecoxib 200 mg capsule 200 mg PO BID Qty: 60 3RF amoxicillin 875 mg tablet 875 mg PO BID 10 Days Qty: 20 0RF albuterol sulfate 2.5 mg /3 mL (0.083 %) solution for nebulization 2.5 mg inhalation Q4H PRN (Reason: shortness of breath or wheezing) Qty: 180 1RF ranolazine [Ranexa] 500 mg tablet extended release 12 hr 500 mg PO BID Qty: 180 3RF atorvastatin 40 mg tablet See Rx Instructions .ROUTE .COMPLEX Qty: 30 2RF Dose Instruction: Take 1 tablet by mouth once daily Rx Instructions: Take 1 tablet by mouth once daily potassium chloride 10 mEq tablet extended release See Rx Instructions .ROUTE .COMPLEX Qty: 60 3RF Dose Instruction: TAKE 1 TABLET BY MOUTH TWICE DAILY FOR HYPERTENSION Rx Instructions: TAKE 1 TABLET BY MOUTH TWICE DAILY FOR HYPERTENSION levothyroxine 100 mcg tablet See Rx Instructions .ROUTE .COMPLEX Qty: 30 3RF Dose Instruction: Take 1 tablet by mouth once daily Rx Instructions: Take 1 tablet by mouth once daily hydrocodone-acetaminophen 10-325 mg tablet 1 tab PO TID PRN (Reason: back pain) 30 Days Qty: 90 0RF Rx Instructions: Refill on or after 30-day intervals trazodone 100 mg tablet 200 mg PO BEDTIME PRN (Reason: Sleep) Narcan 4 mg/actuation [place],Non-Aerosol 4 mg INTRANASAL Q2M PRN (Reason: overdose) Rx Instructions: spray 1 dose into ONE nostril; alternate nostrils w each dose until help arrives baclofen 20 mg tablet 20 mg PO TID PRN (Reason: chronic back pain) gabapentin 300 mg capsule 300 mg PO BID furosemide 20 mg tablet 20 mg PO BID PRN (Reason: Edema) Discharge Orders: Discharge ED (Routine); Ordered 01/22/23 Ordered By: Amandeep Garcia Referrals: Juan Carlos Dawson MD [Primary Care Provider] - Patient Instructions: Acute Bronchitis (ED) Activity Restrictions/Additional Instructions: Use your inhaler every 4 hours while awake for the next 48 hours, then as needed following that. Medications as directed. Return for worsening shortness of breath despite treatment, fever greater than 100 despite 2-3 doses of antibiotics, significant chest pain, other concerning symptoms. Coding Level of Care Code ED Cigarette And Filter Chief Inspector for Zeina Menchaca
== END 2023-01-22 04:28 | disposition home or self-care (01) ==
PROVIDERS: Physician Assistant; Emergency Provider Emergency Medicine; PCP Family Medicine Adult Medicine
DX: J44.0 Chronic obstructive pulmonary disease with (acute) lower respiratory infection (principal); J20.9 Acute bronchitis, unspecified; Z79.82 Long term (current) use of aspirin; Z20.822 Contact with and (suspected) exposure to COVID-19; Z87.891 Personal history of nicotine dependence; I25.10 Atherosclerotic heart disease of native coronary artery without angina pectoris; I10 Essential (primary) hypertension
CPT/HCPCS: 71045; 87081; 87426; 87804; 87880; 99284; J7512; Q0144

== ENCOUNTER → 2023-03-06 09:38 | Outpatient (BNVA) | payer MEDICAID, SELFPAY ==
[2022-06-05 10:21] VITALS: BP 135/74; BMI 38.8
== END ==
PROVIDERS: PCP Family Medicine Adult Medicine; Visit Provider Family Medicine Adult Medicine
DX: E03.9 Hypothyroidism, unspecified (principal); I10 Essential (primary) hypertension; E78.00 Pure hypercholesterolemia, unspecified; I25.118 Atherosclerotic heart disease of native coronary artery with other forms of angina pectoris; Z79.899 Other long term (current) drug therapy
CPT/HCPCS: 80053; 80061; 83036; 84443

== ENCOUNTER → 2023-03-12 13:57 | Outpatient (BNVA) | payer MEDICAID, SELFPAY ==
[2022-06-05 10:21] VITALS: BP 135/74; BMI 38.8
== END ==
PROVIDERS: PCP Family Medicine Adult Medicine; Visit Provider Nurse Practitioner Family
DX: J02.9 Acute pharyngitis, unspecified (principal); J06.9 Acute upper respiratory infection, unspecified
CPT/HCPCS: 87880

== ENCOUNTER → 2023-03-20 12:32 | Outpatient (BNVA) | payer MEDICAID, SELFPAY ==
[2022-06-05 10:21] VITALS: BP 135/74; BMI 38.8
== END ==
PROVIDERS: PCP Family Medicine Adult Medicine; Visit Provider Internal Medicine Cardiovascular Disease
DX: I25.118 Atherosclerotic heart disease of native coronary artery with other forms of angina pectoris (principal); R94.39 Abnormal result of other cardiovascular function study; E78.5 Hyperlipidemia, unspecified; Z87.891 Personal history of nicotine dependence; I10 Essential (primary) hypertension; J44.9 Chronic obstructive pulmonary disease, unspecified; Z98.890 Other specified postprocedural states; Z79.82 Long term (current) use of aspirin
CPT/HCPCS: 99213

== ENCOUNTER → 2023-04-04 08:17 | Outpatient (BNVA) | payer MEDICAID, SELFPAY ==
[2022-06-05 10:21] VITALS: BP 135/74; BMI 38.8
== END ==
PROVIDERS: PCP Family Medicine Adult Medicine; Referring Provider Family Medicine Adult Medicine; Visit Provider Orthopaedic Surgery
DX: M25.561 Pain in right knee (principal)
CPT/HCPCS: 73560; 73565; 99203

== ENCOUNTER → 2023-06-26 08:19 | Outpatient (BNVA) | payer MEDICAID, SELFPAY ==
[2022-06-05 10:21] VITALS: BP 135/74; BMI 38.8
== END ==
PROVIDERS: PCP Family Medicine Adult Medicine; Visit Provider Family Medicine Adult Medicine
DX: I10 Essential (primary) hypertension (principal); R73.03 Prediabetes; E03.9 Hypothyroidism, unspecified; E78.5 Hyperlipidemia, unspecified; E11.9 Type 2 diabetes mellitus without complications; Z98.890 Other specified postprocedural states
CPT/HCPCS: 80053; 80061; 83036; 84443

== ENCOUNTER → 2023-10-23 11:28 | Outpatient (BNVA) | payer MEDICAID, SELFPAY ==
[2022-06-05 10:21] VITALS: BP 135/74; BMI 38.8
== END ==
PROVIDERS: PCP Family Medicine Adult Medicine; Visit Provider Podiatrist Foot & Ankle Surgery
DX: L60.3 Nail dystrophy (principal)
CPT/HCPCS: 99213

== ENCOUNTER 2024-02-02 13:55 | Emergency (ER) | payer MEDICAID, SELFPAY ==
[2022-06-05 10:21] VITALS: BP 135/74; BMI 38.8
[2024-02-02 14:08] VITALS: BP 166/85; PULSE 78; RESP 20; TEMP 36.7; O2SAT 97
--- NOTE | 2024-02-02 14:47 | ED_ITS ---
HPI - Back Pain/Injury 2 General: Chief Complaint: Back Pain/Injury Stated Complaint: back pain Time Seen by Provider: 02/02/24 14:35 Source: patient Mode of arrival: ambulatory Limitations: no limitations History of Present Illness: This patient presents to our emergency department via private vehicle accompanied by his friend. He is developed some right lower back pain over the past 24 hours. Does not radiate there is no associated weakness numbness loss of bowel or bladder control or other symptoms. He does have a history of recurrent intermittent low back pain. He denies any lifting falls etc. He says it is worse with twisting and turning and bending and certain movements that seem to exacerbate his symptoms. He states it is sharp in nature and localized in the same area. Location: lumbar spine and right lower back Radiation: none Exacerbating factors: movement Relieving factors: none Context: unknown Associated symptoms: Reports no associated symptoms; Deny abdominal pain, chills, dysuria, fever(s), nausea, syncope or vomiting Review of Systems 2 Const: Denies: fever(s) or chills Card: Denies: chest pain, palpitations, syncope or pre-syncope Resp: Denies: dyspnea GI: Denies: abdominal pain, nausea, vomiting or diarrhea : Denies: flank pain, difficulty urinating, dysuria or urinary frequency Musc: Reports: back pain Skin/Breast: Denies: rash Neuro: Denies: headache(s), numbness in extremities or weakness in extremities PFSH ED 2 PFSH: Medical History Encounter for weight loss counseling Adult BMI 40.0-44.9 kg/sq m Nocturnal cough Enlarged and hypertrophic nails Cutaneous skin tags Pre-diabetes Right knee pain Hyperlipidemia LDL goal <130 Peripheral neuritis of both feet Itching of both hands Chronic bilateral back pain Asthma Allergies Atherosclerotic heart disease of [place] coronary artery with other forms of angina pectoris Angina & CABG, 01/27/[address] Grullon Surgeon in [place] CAD Colon polyps Hypothyroidism DJD (degenerative joint disease) COPD (chronic obstructive pulmonary disease) Hypertension Surgical History Hx of colonoscopy with polypectomy 12/31/[address] Quiroga History of open heart surgery 01-27-[address] Grullon Surgeon in [place] History of replacement of both shoulder joints 2019 History of right knee surgery Reattach patella Family History Father CAD (coronary artery disease), Onset Age: 54 Dementia Diabetes Family/Other CAD (coronary artery disease) Cancer Stroke Mother Cancer Denies family history of Clotting disorder Chronic kidney disease (CKD) Suicide Anesthesia complication Bleeding disorder Lung disease Social History Smoking and tobacco/nicotine status: former use of tobacco/nicotine Quit status (tobacco/nicotine): has quit using Year quit tobacco: 2009 Former quit date comment: 1ppd x 30 years Second hand smoke exposure: No Alcohol intake: current Alcohol intake frequency: holidays/special occasions only Alcohol type: beer Substance/Drug Use: never Adopted: No Caregiver/support person: No Lives independently: Yes Household members: none Housing: Manufactured/Mobile home Marital status: Single Number of children: 3 Number of grandchildren: 1 Highest education level completed: GED or Equivalent service: No Current occupational status: retired and disabled Current occupational exposures/hazards: No Pets and animals: Yes (inside) Pets & animals: dog(s) Leisure activites: other Leisure activities details: nothing Sexually active: No Do you think of yourself as: Straight/Heterosexual Current gender identity: Male Jenny/Worship: Roman Catholic Special jenny needs: No Agree to transfusion: Yes Physical Exam 2 Narrative: EXAM NARRATIVE: Patient's obese gentleman who answers questions appropriately and is makes good eye contact. He is uncomfortable with movement in certain locations but generally when he is lying still he is comfortable. Const: COMMON NORMALS: patient oriented x3 and alert GENERAL APPEARANCE: c ooperative NUTRITIONAL APPEARANCE: obese HENMT: COMMON NORMALS: normocephalic, Normal nasal mucous membranes and turbinates present and moist oral mucous membranes HEAD & SCALP: n ormocephalic NOSE: Normal nasal mucous membranes and turbinates present Eye: COMMON NORMALS: Equal, round and reactive pupils present and EOMs intact bilaterally PUPIL: Yes Equal, round and reactive pupils present Neck/C-Spine: COMMON NORMALS: full ROM CERVICAL SPINE: Yes cervical ROM normal and No step off deformity Resp: COMMON NORMALS: No retractions and No use of accessory muscles EFFORT & INSPECTION: Yes able to speak in complete sentences Cardio: COMMON NORMALS: regular rate and Peripheral pulses 2+ throughout R ATE: regular rate PERIPHERAL PULSES: Peripheral pulses 2+ throughout GI: COMMON NORMALS: Soft to palpation PALPATION: Yes Soft to palpation Back/Pelvis: THORACIC SPINE/UPPER BACK: Yes normal to inspection and Yes thoracic ROM normal LUMBAR SPINE/LOWER BACK: Yes normal to inspection and Yes paraspinal muscle tenderness Lumbar paraspinal muscle tenderness: left P MEGAN: Yes buttocks normal SACROILIAC JOINTS: Yes SI joint(s) abnormal SI joint details: tender to palpation (Left) OTHER: He has tenderness over the soft tissues of his posterior iliac spine region. Internal and external rotation of the hip tend to exacerbate symptoms. There is no midline tenderness. BACK IMAGE (MALE): 1. Tender Extremity: COMMON NORMALS: normal to inspection, full ROM and capillary refill normal Neuro: COMMON NORMALS: patient oriented x3, moves all extremities, no focal motor deficits and deep tendon reflexes 2+ bilaterally SENSORIUM/ORIENTATION: Yes alert CRANIAL NERVES: Yes CN normal except as noted Psych: COMMON NORMALS: mental status grossly normal Skin: COMMON NORMALS: no rashes or lesions noted and turgor normal GENERAL SKIN EXAM: no rashes or lesions noted and turgor normal Course 2 Reevaluation(s): Reevaluation #1: Findings are consistent with acute right sacroiliac dysfunction. Discussed potential localized trigger point injection with local anesthetic and small amount of corticosteroids with the patient and he voiced understanding agreed to proceed. Area of maximal tenderness was located in the soft tissues around the posterior iliac spine region. Skin was cleaned with rubbing alcohol and using a 25-gauge needle approximately 4 mL of 0.5% Marcaine as well as 40 mg of triamcinolone were injected in the area of maximal tenderness. The patient tolerated procedure well. Time: 15:00 Reevaluation #2: Patient states he is getting gradual improvement and less pain. Discussed expected course and should get continued improvement but he is should continue to be active use ice to the area and may take his other analgesics. We also discussed return precautions. Time: 15:28 Vital Signs: Vital signs: Vital Signs Temperature 98.0 F 02/02/24 14:08 Pulse Rate 78 02/02/24 14:08 Respiratory Rate 20 H 02/02/24 14:08 Blood Pressure 166/85 02/02/24 14:08 Pulse Oximetry 97 02/02/24 14:08 Oxygen Delivery Me thod Room Air 02/02/24 14:08 MDM - Back Pain/Injury Medical Decision Making Patient with a longstanding history of chronic low back pain. No prior back surgeries no history of immunocompromise, IV drug use, fevers chills etc. He has had increasing soreness in his low back over the last 24 hours. He cannot specifically pinpoint any specific time of increased pain but it is gradually come on and is located in the right lower back. There is no radiation of his pain. There is no associated fevers chills weakness numbness loss of bowel or bladder control or other concerning symptoms. Clinical examination revealed him to be overweight but cooperative and only uncomfortable if he moves in the bed. There is no axial spine tenderness. There was tenderness over the soft tissues of the right posterior superior iliac spine which seem to worsen with internal and external rotation of the hip. No neurologic deficits were noted. Consistent with sacroiliac dysfunction does not suggest axial spine pathology or other concerning low back pain etiology at this time. Patient was given the benefit of a trigger point injection in the soft tissue surrounding the right superior iliac spine which she responded favorably patient is being discharged to home care with continued increased activity, ice to the area and using his usual analgesics with return precautions.. No radiology studies performed this visit Discharge Plan Discharge Condition: Stable Prescriptions: No Action loratadine 10 mg tablet 10 mg PO DAILY Qty: 90 3RF guaifenesin [Mucinex] 600 mg tablet extended release 12hr 600 mg PO BID PRN (Reason: congestion) Qty: 30 3RF furosemide 20 mg tablet 20 mg PO BID PRN (Reason: Edema) Qty: 60 3RF isosorbide mononitrate 60 mg tablet extended release 24 hr 60 mg PO DAILY Qty: 90 5RF metoprolol succinate [Toprol XL] 25 mg tablet extended release 24 hr 25 mg PO DAILY Qty: 90 5RF vitamin B complex Tablet 1 tab PO DAILY Qty: 90 3RF albuterol sulfate 90 mcg/actuation HFA aerosol inhaler 2 puff inhalation Q6H PRN (Reason: shortness of breath or wheezing) Qty: 8.5 5RF atorvastatin 80 mg tablet 40 mg PO BID Qty: 90 1RF nitroglycerin 0.4 mg tablet, sublingual 0.4 mg sublingual Q5M PRN (Reason: chest pain) 30 Days Qty: 30 3RF Rx Instructions: until response; do not exceed 3 doses per episode hydrocodone-acetaminophen 7.5-325 mg tablet 1 tab PO TID PRN (Reason: pain) 30 Days Qty: 90 0RF Rx Instructions: if 10/325 is not available then this fluticasone propionate 50 mcg/actuation spray,suspension 2 spray INTRANASAL BID PRN (Reason: Congestion) amlodipine 5 mg tablet 5 mg PO QAM Adult Aspirin Regimen 81 mg tablet,delayed release (DR/EC) 81 mg PO QAM levothyroxine 100 mcg tablet 100 mcg PO DAILY azelastine 137 mcg (0.1 %) aerosol,spray 2 spray intranasal BID PRN (Reason: allergies or congestion) Rx Instructions: administer into each nostril phentermine 37.5 mg capsule 37.5 mg PO DAILY PRN (Reason: weight) hydroxyzine pamoate 25 mg capsule 25 - 50 mg PO BEDTIME Rx Instructions: TAKE 1 TO 2 CAPSULES BY MOUTH ONCE DAILY 1 HOUR BEFORE BEDTIME niacin 500 mg tablet extended release See Rx Instructions .ROUTE .COMPLEX PRN (Reason: low HDL) Rx Instructions: One half a tab at bedtime for 1 weeks then 1 at bedtime for 1 week then 2 tablets at bedtime Referrals: Juan Carlos Dawson MD [Primary Care Provider] - Coding Level of Care Code ED Heel Cementer for Zeina Menchaca
[2024-02-02] MEDS: triamcinolone 40 mg/mL SDV IM (15:10)
[2024-02-02] MEDS: BUPivacaine 0.5% INJ 10 mL INJECTION (15:10)
[2024-02-02] MEDS: ketorolac 30 mg/mL INJ 15 MG IM (15:52)
== END 2024-02-02 17:14 | disposition home or self-care (01) ==
PROVIDERS: Emergency Provider Emergency Medicine; PCP Family Medicine Adult Medicine
DX: M54.50 Low back pain, unspecified (principal); Z79.82 Long term (current) use of aspirin; Z87.891 Personal history of nicotine dependence; E78.5 Hyperlipidemia, unspecified; I25.10 Atherosclerotic heart disease of native coronary artery without angina pectoris; I10 Essential (primary) hypertension; J44.9 Chronic obstructive pulmonary disease, unspecified
CPT/HCPCS: 96372; 99284; J1885; J3301; J3490

== ENCOUNTER → 2024-08-15 09:18 | Outpatient (BNVA) | payer MEDICAID, SELFPAY ==
[2022-06-05 10:21] VITALS: BP 135/74; BMI 38.8
== END ==
PROVIDERS: PCP Family Medicine Adult Medicine; Visit Provider Internal Medicine Cardiovascular Disease
DX: R07.9 Chest pain, unspecified (principal); R06.02 Shortness of breath; I25.118 Atherosclerotic heart disease of native coronary artery with other forms of angina pectoris; I10 Essential (primary) hypertension; Z87.891 Personal history of nicotine dependence
CPT/HCPCS: 99214

== ENCOUNTER 2024-08-17 13:22 | Emergency (ER) | payer MEDICAID, SELFPAY ==
[2022-06-05 10:21] VITALS: BP 135/74; BMI 38.8
[2024-08-17 13:29] VITALS: BP 159/84; PULSE 95; RESP 18; TEMP 37.4; O2SAT 96
--- NOTE | 2024-08-17 13:57 | XRR_ITS ---
PROCEDURE INFORMATION: Exam: XR Chest Exam date and time: 08/17/2024 2:56 PM Age: 58 years old Clinical indication: Cough and dyspnea; Additional info: Dyspnea; Cough; Fever; Headache; HX cabg, bilat shoulder TECHNIQUE: Imaging protocol: Radiologic exam of the chest. Views: 1 view. COMPARISON: CR XR chest 1V portable [id number] 01/22/2023 3:08 AM FINDINGS: Lungs: Unremarkable. No consolidation. Pleural spaces: Unremarkable. No pleural effusion. No pneumothorax. Heart/Mediastinum: Unremarkable. No cardiomegaly. Bones/joints: There are bilateral shoulder prostheses. Sternal sutures are again noted. XR/XR chest 1V portable [id number] IMPRESSION: No acute findings.
--- NOTE | 2024-08-17 15:16 | ED_ITS ---
HPI - URI/Sore Throat 2 General: Chief Complaint: Upper Respiratory Infection Stated Complaint: cough, fatigue, weak Time Seen by Provider: 08/17/24 15:09 History of Present Illness: 58-year-old male patient comes in today with cough and weakness for a little over 24 hours. Patient reports he started having a dry cough yesterday and last night it seemed to worsen throughout the night. Patient reports malaise and weakness. Patient is use some honey and some antihistamine with minimal relief this morning. Patient reports a headache. Patient does have a history of a CABG 5 years ago, COPD and asthma, borderline diabetes mellitus type 2, elevated blood pressure, elevated cholesterol, nicotine use which she stopped 20 years ago, no other drug or alcohol use. Patient appears mildly unwell but not toxic. Related Data Home Medications Medication Instructions Recorded Confirmed aspirin 81 mg tablet,delayed 81 mg PO QAM heart 02/02/24 08/15/24 release (Adult Aspirin Regimen) niacin 500 mg tablet,extended See Rx Instructions .Route 02/02/24 08/15/24 release .COMPLEX PRN low HDL Previous Rx's Medication Instructions Recorded vitamin B complex 1 tab PO DAILY for itching/burning 03/06/23 #90 tabs orphenadrine citrate 100 mg 100 mg PO BID PRN pain/muscle 04/15/24 tablet,extended release spasm #60 tabs albuterol sulfate 90 mcg/actuation 2 puff inhalation Q6H PRN 05/08/24 aerosol inhaler shortness of breath or wheezing #8.5 grams atorvastatin 80 mg tablet 40 mg (1/2 x 80 mg) PO BID #90 tabs 05/08/24 azelastine 137 mcg (0.1 %) nasal 2 spray intranasal .q am PRN 05/08/24 spray allergies or congestion #30 mL fluticasone propionate 50 2 spray intranasal .q hs PRN 05/08/24 mcg/actuation nasal Congestion #16 grams spray,suspension furosemide 20 mg tablet 20 mg PO BID PRN Edema #60 tabs 05/08/24 guaifenesin 600 mg tablet, 600 mg PO BID PRN congestion #60 05/08/24 extended release 12 hr (Mucinex) tabs levothyroxine 100 mcg tablet 100 mcg PO DAILY #90 tabs 05/08/24 loratadine 10 mg tablet 10 mg PO DAILY allergies #90 tabs 05/08/24 metoprolol succinate 25 mg 25 mg PO DAILY #90 tabs 05/08/24 tablet,extended release 24 hr (Toprol XL) nitroglycerin 0.4 mg sublingual 0.4 mg sublingual Q5M PRN chest 05/08/24 tablet pain 30 days #30 tabs diazepam 10 mg tablet 5 mg (1/2 x 10 mg) PO .q hs prn 07/09/24 PRN muscle spasm 30 days #10 tabs levalbuterol tartrate 45 2 inh inhalation Q6H #45 grams 07/09/24 mcg/actuation aerosol inhaler (Xopenex HFA) phentermine 37.5 mg capsule 37.5 mg PO DAILY PRN weight #30 07/29/24 caps hydroxyzine pamoate 25 mg capsule 25 - 50 mg (1 - 2 x 25 mg) PO 07/30/24 BEDTIME #60 caps oxycodone-acetaminophen 7.5 mg-325 1 tab PO Q8H PRN pain 30 days #90 08/12/24 mg tablet tabs amlodipine 10 mg tablet 10 mg PO QAM blood pressure #90 08/15/24 tabs isosorbide mononitrate 60 mg 60 mg PO DAILY #180 tabs 08/15/24 tablet,extended release 24 hr ibuprofen 600 mg tablet 600 mg PO Q6H PRN fever or pain 08/17/24 #40 tabs promethazine-DM 6.25 mg-15 mg/5 mL 5 ml PO Q6H PRN cough #118 mL 08/17/24 oral syrup Allergies Allergy/AdvReac Type Severity Reaction Status Date / Time No Known Allergies Allergy Verified 08/17/24 13:35 Review of Systems 2 General: Reports: 10 or more systems reviewed and unremarkable except in HPI and below Resp: Reports: non-productive cough PFSH ED 2 PFSH: Medical History Elevated blood-pressure reading, without diagnosis of hypertension Nocturnal cough Insomnia Adult BMI 40.0-44.9 kg/sq m Pre-diabetes Hyperlipidemia LDL goal <130 Peripheral neuritis of both feet Chronic bilateral back pain Asthma Allergies Atherosclerotic heart disease of [place] coronary artery with other forms of angina pectoris Angina & CABG, 01/27/[address] Grullon Surgeon in [place] CAD Colon polyps Hypothyroidism DJD (degenerative joint disease) COPD (chronic obstructive pulmonary disease) Hypertension Surgical History History of right knee surgery Reattach patella Hx of colonoscopy with polypectomy 12/31/[address] Quiroga History of open heart surgery 01-27-[address] Grullon Surgeon in [place] History of replacement of both shoulder joints 2018 Family History Father CAD (coronary artery disease), Onset Age: 54 Dementia Diabetes Family/Other CAD (coronary artery disease) Cancer Stroke Mother Cancer Denies family history of Clotting disorder Chronic kidney disease (CKD) Suicide Anesthesia complication Bleeding disorder Lung disease Social History Smoking and tobacco/nicotine status: former use of tobacco/nicotine Quit status (tobacco/nicotine): has quit using Year quit tobacco: 2009 Former quit date comment: 1ppd x 30 years Second hand smoke exposure: No Alcohol intake: current Alcohol intake frequency: holidays/special occasions only Alcohol type: beer Substance/Drug Use: never Adopted: No Caregiver/support person: No Lives independently: Yes Household members: none Housing: Manufactured/Mobile home Marital status: Single Number of children: 3 Number of grandchildren: 1 Highest education level completed: GED or Equivalent service: No Current occupational status: retired and disabled Current occupational exposures/hazards: No Pets and animals: Yes (inside) Pets & animals: dog(s) Leisure activites: other Leisure activities details: nothing Sexually active: No Do you think of yourself as: Straight/Heterosexual Current gender identity: Male Jenny/Roman Catholic: Mormonism Special jenny needs: No Agree to transfusion: Yes Physical Exam 2 Const: COMMON NORMALS: patient oriented x3 and alert HENMT: COMMON NORMALS: normocephalic HEAD & SCALP: normocephalic THROAT: posterior oropharynx normal Neck/C-Spine: COMMON NORMALS: full ROM Resp: COMMON NORMALS: normal respiratory effort and clear to auscultation bilaterally AUSCULTATION: clear to auscultation bilaterally Cardio: COMMON NORMALS: regular rate and regular rhythm RATE: regular rate RHYTHM: regular rhythm GI: COMMON NORMALS: non-tender Back/Pelvis: COMMON NORMALS: thoracic and lumbar spine normal to inspection Extremity: COMMON NORMALS: full ROM Neuro: COMMON NORMALS: patient oriented x3 SENSORIUM/ORIENTATION: Yes alert Skin: COMMON NORMALS: turgor normal GENERAL SKIN EXAM: turgor normal Course 2 Vital Signs: Vital signs: Vital Signs Temperature 99.4 F 08/17/24 13:29 Pulse Rate 88 08/17/24 15:20 Respiratory Rate 20 H 08/17/24 15:20 Blood Pressure 145/68 08/17/24 15:20 Pulse Oximetry 98 08/17/24 15:20 Oxygen Delivery Me thod Room Air 08/17/24 15:20 MDM - URI/Sore Throat Medical Decision Making 58-year-old male patient comes in today for illness x 1 day. Patient reports cough and headache. Patient appears mildly unwell but not toxic. Patient has good air movement in lung case. Skin is warm and dry. Vital signs are normal except for some elevated blood pressure. Differential diagnosis includes but not limited to pneumonia, upper respiratory infection, CHF, exacerbation of COPD, exacerbation of asthma. CBC CMP was unremarkable. Chest x-ray showed no pneumonia. Patient was tested positive for COVID. Reviewed exam with patient with recommendation for treatment for fever and cough. Discussed supportive care. Patient reported understanding agreed to plan. Lab Data 08/17/24 15:55 08/17/24 15:55 Radiology Impressions Chest X-Ray 08/17/24 13:57 IMPRESSION: No acute findings. Laboratory Results WBC 9.31 10^3/uL (3.29-11.43) 08/17/24 15:55 RBC 4.86 10^6/uL (3.85-5.65) 08/17/24 15:55 Hgb 15.60 g/dL (11.27-16.99) 08/17/24 15:55 Hct 46.7 % (37-53) 08/17/24 15:55 MCV 96.1 fl (82-101) 08/17/24 15:55 MCH 32.1 pg (27-33) 08/17/24 15:55 MCHC 33.4 g/dL (30-55) 08/17/24 15:55 RDW 13.5 % (12.1-15.1) 08/17/24 15:55 Plt Count 205 10^3/cmm (157-399) 08/17/24 15:55 MPV 9.5 fL (7.4-10.4) 08/17/24 15:55 Neut % (Auto) 72.9 % 08/17/24 15:55 Lymph % (Auto) 12.0 % 08/17/24 15:55 [place] % (Auto) 11.9 % 08/17/24 15:55 Eos % (Auto) 2.0 % 08/17/24 15:55 Baso % (Auto) 0.9 % 08/17/24 15:55 Neut # (Auto) 6.78 10^3/uL (1.8-7.7) 08/17/24 15:55 Lymph # (Auto) 1.1 10^3/uL (0.8-4.8) 08/17/24 15:55 [place] # (Auto) 1.1 10^3/uL (0.2-0.9) H 08/17/24 15:55 Eos # (Auto) 0.2 10^3/uL (0.0-0.8) 08/17/24 15:55 Baso # (Auto) 0.1 10^3/uL (0.0-0.1) 08/17/24 15:55 Nucleated RBC % (auto) 0 % 08/17/24 15:55 Nucleated RBCs # 0.0 /100WBC 08/17/24 15:55 Sodium 132 mmol/L (136-145) L 08/17/24 15:55 Potassium 4.3 mmol/L (3.5-5.1) 08/17/24 15:55 Chloride 99 mmol/L (98-107) 08/17/24 15:55 Carbon Dioxide 23 mmol/L (22-29) 08/17/24 15:55 Anion Gap 14.3 (5-19) 08/17/24 15:55 BUN 11 mg/dL (8-23) 08/17/24 15:55 Creatinine 0.8 mg/dL (0.7-1.2) 08/17/24 15:55 GFR Calculation 98.6 mL/min (90-130) 08/17/24 15:55 Glucose 101 mg/dL (65-115) 08/17/24 15:55 Calculated Osmolality 274 mOsm/kg (285-295) L 08/17/24 15:55 Calcium 8.5 mg/dL (8.5-10.5) 08/17/24 15:55 Total Bilirubin 0.4 mg/dL (0.15-1.2) 08/17/24 15:55 AST 31 U/L (0-40) 08/17/24 15:55 ALT 41 U/L (0-41) 08/17/24 15:55 Alkaline Phosphatase 69 U/L (40-130) 08/17/24 15:55 C-Reactive Protein 6.6 mg/L (0.0-4.9) H 08/17/24 15:55 Total Protein 6.8 g/dL (6.6-8.7) 08/17/24 15:55 Albumin 4.1 g/dL (3.5-5.2) 08/17/24 15:55 Globulin 2.7 g/dL (1.3-4.6) 08/17/24 15:55 Coronavirus (PCR) Positive (Negative) A 08/17/24 15:16 Influenza A (PCR) Negative (Negative) 08/17/24 15:16 Influenza Type B (PCR) Negative (Negative) 08/17/24 15:16 RSV (PCR) Negative (Negative) 08/17/24 15:16 All radiology interpretation(s) finalized by discharge Discharge Plan Discharge Patient Disposition: Home Clinical Impression: Upper respiratory tract infection due to COVID-19 virus Condition: Stable Prescriptions: New promethazine-DM 6.25-15 mg/5 mL syrup 5 ml PO Q6H PRN (Reason: cough) Qty: 118 0RF ibuprofen 600 mg tablet 600 mg PO Q6H PRN (Reason: fever or pain) Qty: 40 0RF No Action orphenadrine citrate 100 mg tablet extended release 100 mg PO BID PRN (Reason: pain/muscle spasm) Qty: 60 0RF amlodipine 10 mg tablet 10 mg PO QAM Qty: 90 3RF isosorbide mononitrate 60 mg tablet extended release 24 hr 60 mg PO DAILY Qty: 180 3RF Rx Instructions: take 1 tab ( 60mg ) in AM take 1/2 tab ( 30mg ) in PM levothyroxine 100 mcg tablet 100 mcg PO DAILY Qty: 90 1RF azelastine 137 mcg (0.1 %) aerosol,spray 2 spray intranasal .q am PRN (Reason: allergies or congestion) Qty: 30 5RF Rx Instructions: administer into each nostril fluticasone propionate 50 mcg/actuation spray,suspension 2 spray INTRANASAL .q hs PRN (Reason: Congestion) Qty: 16 5RF atorvastatin 80 mg tablet 40 mg PO BID Qty: 90 1RF albuterol sulfate 90 mcg/actuation HFA aerosol inhaler 2 puff inhalation Q6H PRN (Reason: shortness of breath or wheezing) Qty: 8.5 5RF furosemide 20 mg tablet 20 mg PO BID PRN (Reason: Edema) Qty: 60 5RF guaifenesin [Mucinex] 600 mg tablet extended release 12hr 600 mg PO BID PRN (Reason: congestion) Qty: 60 5RF loratadine 10 mg tablet 10 mg PO DAILY Qty: 90 3RF nitroglycerin 0.4 mg tablet, sublingual 0.4 mg sublingual Q5M PRN (Reason: chest pain) 30 Days Qty: 30 3RF Rx Instructions: until response; do not exceed 3 doses per episode metoprolol succinate [Toprol XL] 25 mg tablet extended release 24 hr 25 mg PO DAILY Qty: 90 5RF vitamin B complex Tablet 1 tab PO DAILY Qty: 90 3RF diazepam 10 mg tablet 5 mg PO .q hs prn PRN (Reason: muscle spasm) 30 Days Qty: 10 1RF Rx Instructions: Refill on or after 30 days interval levalbuterol tartrate [Xopenex HFA] 45 mcg/actuation HFA aerosol inhaler 2 inh inhalation Q6H Qty: 45 1RF phentermine 37.5 mg capsule 37.5 mg PO DAILY PRN (Reason: weight) Qty: 30 1RF hydroxyzine pamoate 25 mg capsule 25 - 50 mg PO BEDTIME Qty: 60 0RF Rx Instructions: TAKE 1 TO 2 CAPSULES BY MOUTH ONCE DAILY 1 HOUR BEFORE BEDTIME oxycodone-acetaminophen 7.5-325 mg tablet 1 tab PO Q8H PRN (Reason: pain) 30 Days Qty: 90 0RF Rx Instructions: Refill on her after previous 30 days Adult Aspirin Regimen 81 mg tablet,delayed release (DR/EC) 81 mg PO QAM niacin 500 mg tablet extended release See Rx Instructions .ROUTE .COMPLEX PRN (Reason: low HDL) Rx Instructions: One half a tab at bedtime for 1 weeks then 1 at bedtime for 1 week then 2 tablets at bedtime Discharge Orders: Discharge ED (Routine); Ordered 08/17/24 Ordered By: Pietro Camp Referrals: Juan Carlos Dawson MD [Primary Care Provider] - Discharge Diet: Usual diet Discharge Activity: Increase activity as tolerated Patient Instructions: Upper Respiratory Infection (ED) Activity Restrictions/Additional Instructions: Home and rest. Drink plenty of water and fluids. Use acetaminophen and/or ibuprofen for pain and discomfort. You may use Promethazine DM to help with cough. Follow-up with primary care in 2 to 3 days for recheck. Return to ED for worsening symptoms such as inability to hold fluids down, severe chest pain, or severe shortness of breath. Coding Level of Care Code ED Relay Shop Tester for Zeina Menchaca
[2024-08-17 15:20] VITALS: BP 145/68; PULSE 88; RESP 20; O2SAT 98
[2024-08-17] MEDS: acetaminophen 500 mg Tablet 1000 MG PO (15:22)
[2024-08-17] MEDS: promethazine-cod syrup 6.25-10mg/5 mL UDC PO (15:25)
--- NOTE | 2024-08-17 15:28 | PC.NURSE ---
PROMETHAZINE-DEXTRO DC'D DUE TO NONFORMULARY.
[2024-08-17 16:01] LABS: Influenza A NEGATIVE (Negative); Influenza B NEGATIVE (Negative); Respiratory Syncytial Virus Ce NEGATIVE (Negative)
[2024-08-17 16:07] LABS: Basophils # 0.1 10^3/uL (0.0-0.1); Basophils % 0.9 %; Eosinophils # 0.2 10^3/uL (0.0-0.8); Hematocrit 46.7 % (37-53); Lymphocytes # 1.1 10^3/uL (0.8-4.8); Mean Corpuscular HGB Conc 33.4 g/dL (30-55); Mean Corpuscular Hemoglobin 32.1 pg (27-33); Mean Corpuscular Volume 96.1 fl (82-101); Mean Platelet Volume 9.5 fL (7.4-10.4); Monocytes # 1.1 10^3/uL (0.2-0.9); Monocytes % 11.9 %; Neutrophils # 6.78 10^3/uL (1.8-7.7); Neutrophils % 72.9 %; Nucleated Red Blood Cells % 0 %; Platelet Count 205 10^3/cmm (157-399); Red Blood Count 4.86 10^6/uL (3.85-5.65); Red Cell Distribution Width 13.5 % (12.1-15.1); White Blood Count 9.31 10^3/uL (3.29-11.43)
[2024-08-17 16:20] LABS: Alanine Aminotransferase 41 U/L (0-41); Albumin Level 4.1 g/dL (3.5-5.2); Alkaline Phosphatase 69 U/L (40-130); Anion Gap 14.3 (5-19); Aspartate Amino Transferase 31 U/L (0-40); Blood Urea Nitrogen 11 mg/dL (8-23); C Reactive Protein 6.6 mg/L (0.0-4.9); Calcium 8.5 mg/dL (8.5-10.5); Carbon Dioxide 23 mmol/L (22-29); Chloride 99 mmol/L (98-107); Creatinine Clr Calc Pharmacy 143.7933; Globulin 2.7 g/dL (1.3-4.6); Glomerular Filtration Rate 98.6 mL/min (90-130); Glucose 101 mg/dL (65-115); Osmolality Calculated 274 mOsm/kg (285-295); Potassium 4.3 mmol/L (3.5-5.1); Sodium 132 mmol/L (136-145); Total Bilirubin 0.4 mg/dL (0.15-1.2); Total Protein 6.8 g/dL (6.6-8.7)
[2024-08-17 16:25] LABS: Covid PCR Positive (Negative)
== END 2024-08-17 17:08 | disposition home or self-care (01) ==
PROVIDERS: Emergency Medicine; Emergency Provider Nurse Practitioner Family; PCP Family Medicine Adult Medicine
DX: U07.1 COVID-19 (principal); J06.9 Acute upper respiratory infection, unspecified; Z79.82 Long term (current) use of aspirin; Z87.891 Personal history of nicotine dependence; E78.5 Hyperlipidemia, unspecified; I25.10 Atherosclerotic heart disease of native coronary artery without angina pectoris; Z95.1 Presence of aortocoronary bypass graft; I10 Essential (primary) hypertension; J44.9 Chronic obstructive pulmonary disease, unspecified
CPT/HCPCS: 0241U; 36415; 71045; 80053; 85025; 86140; 99284

== ENCOUNTER → 2024-08-29 08:15 | Outpatient (BNVA) | payer MEDICAID, SELFPAY ==
[2022-06-05 10:21] VITALS: BP 135/74; BMI 38.8
== END ==
PROVIDERS: PCP Family Medicine Adult Medicine
DX: H92.09 Otalgia, unspecified ear (principal)
CPT/HCPCS: 87426

== ENCOUNTER 2024-09-26 06:02 | Outpatient (CLI) | payer MEDICAID, SELFPAY ==
[2022-06-05 10:21] VITALS: BP 135/74; BMI 38.8
--- NOTE | 2024-09-26 | ECG_ITS ---
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
[2024-09-26 06:29] VITALS: BMI 42.0
--- NOTE | 2024-09-26 06:29 | NMCV_ITS ---
NM geraldine perf SPECT r/s* [id number] Gurpreet Velez Age: 59 Gender: M : 1965 Exam Date: 09/26/2024 07:10 Ordering Phys: Souleymane Bradley MD ([email or web address]) Technologist: JOSE Galicia Exam Location: [facility] Indications: cp STRESS TEST Please see separate stress test report in [facility] for full findings IMAGE PROTOCOL Rest/Stress 1 Exercise Day Radiopharmaceutical Dose (mCi) Administration Site Administered by Rest: Tc-99m 9.6 IV JOSE Galicia Stress:Tc-99m 32.6 IV JOSE Forte Rest: 09/26/2024 60 Discovery 630 Stress: 09/26/2024 30 Discovery 630 Radiopharmaceutical was injected at 90 % maximum heart rate. SPECT RESULTS Technical Quality: Good Raw Data Analysis: Normal Image Corrections: No attenuation or motion correction applied Summed Stress Score: 10 Summed Rest Score: 3 Summed Difference Score: 8 PERFUSION FINDINGS Large area of severe reversibility noted in basal to distal inferior and inferoseptal wall suggestive of ischemia in dominant left circumflex or RCA FUNCTIONAL RESULTS (calculated via Gated SPECT) Stress Image LV EF (%): 58 Stress EDV (mL):110 TID: 1.02 Stress ESV (mL):46 FUNCTIONAL FINDINGS: There is normal left ventricular systolic function. IMPRESSIONS There appeared to be medium to large area of severe ischemia noted in basal to distal inferior and inferolateral wall suggestive of ischemia in RCA or circumflex territory. This is a abnormal stress test. EKG segment will be documented separately. Souleymane Bradley MD (Electronically Signed) Final Date: 26 September 2024 12:06 S
[2024-09-26 08:46] VITALS: BP 134/57; PULSE 88
== END 2024-09-26 06:03 | disposition home or self-care (01) ==
PROVIDERS: PCP Family Medicine Adult Medicine; Visit Provider Internal Medicine Cardiovascular Disease
DX: R07.9 Chest pain, unspecified (principal); R06.02 Shortness of breath; R94.39 Abnormal result of other cardiovascular function study
CPT/HCPCS: 36415; 78452; 93017; A9500

== ENCOUNTER → 2024-09-30 15:26 | Outpatient (BNVA) | payer MEDICAID, SELFPAY ==
[2022-06-05 10:21] VITALS: BP 135/74; BMI 38.8
== END ==
PROVIDERS: PCP Family Medicine Adult Medicine; Visit Provider Internal Medicine Cardiovascular Disease
DX: I25.118 Atherosclerotic heart disease of native coronary artery with other forms of angina pectoris (principal); Z87.891 Personal history of nicotine dependence
CPT/HCPCS: 99214

== ENCOUNTER 2024-11-22 12:08 | Emergency (ER) | payer MEDICAID, SELFPAY ==
[2022-06-05 10:21] VITALS: BP 135/74; BMI 38.8
--- NOTE | 2024-11-22 12:11 | XRR_ITS ---
PROCEDURE INFORMATION: Exam: XR Right Foot Exam date and time: 11/22/2024 12:41 PM Age: 59 years old Clinical indication: Right; Patient HX: RT heel pain x 1 week; No known injury TECHNIQUE: Imaging protocol: Radiologic exam of the right foot. Views: 3 or more views. COMPARISON: CR XR knees AP WB w RT lmt ORTH 04/04/2023 8:18 AM FINDINGS: Bones/joints: No acute fracture or dislocation. Mineralization is normal. Joint spacing and alignment are maintained. Plantar and posterior calcaneal enthesophytes. Soft tissues: Unremarkable. XR/XR foot RT min 3V* [id number] IMPRESSION: 1. No acute findings. 2. Calcaneal enthesopathy.
[2024-11-22 12:15] VITALS: BP 151/82; PULSE 102; RESP 18; TEMP 36.8; O2SAT 98; BMI 44.4
[2024-11-22 13:08] VITALS: BP 137/79; PULSE 97; RESP 20; O2SAT 98
--- NOTE | 2024-11-22 13:51 | W.ED.EXTPRO ---
HPI - Extremity Problem General: Chief complaint: Extremity Problem,Nontraumatic Stated complaint: R. foot heel pain Time Seen by Provider: 11/22/24 13:03 History of Present Illness: Gurpreet Velez is a 59-year-old man that presents to the emergency department with complaints of right foot pain. Onset of symptoms approximately 5 days ago. Patient reports that he has been walking on his forefoot due to tenderness. Pain radiates from Achilles insertion site in the talus to the medial plantar surface of the foot. Patient denies trialing conservative therapies at home. He has a medical history that includes hypothyroidism, anxiety, high cholesterol, hyperlipidemia. Denies diabetes, heart disease. Related Data Home Medications Medication Instructions Recorded Confirmed aspirin 81 mg tablet,delayed 81 mg PO QAM heart 02/02/24 11/22/24 release (Adult Aspirin Regimen) niacin 500 mg tablet,extended See Rx Instructions .Route 02/02/24 11/22/24 release .COMPLEX PRN low HDL Previous Rx's Medication Instructions Recorded loratadine 10 mg tablet 10 mg PO DAILY allergies #90 tabs 05/08/24 amlodipine 10 mg tablet 10 mg PO QAM blood pressure #90 08/15/24 tabs isosorbide mononitrate 60 mg 60 mg PO DAILY #180 tabs 08/15/24 tablet,extended release 24 hr levalbuterol tartrate 45 2 inh inhalation Q6H #45 grams 08/29/24 mcg/actuation aerosol inhaler (Xopenex HFA) albuterol sulfate 90 mcg/actuation 2 puff inhalation Q6H PRN 10/27/24 aerosol inhaler shortness of breath or wheezing #8.5 grams atorvastatin 80 mg tablet 40 mg (1/2 x 80 mg) PO BID #90 tabs 10/27/24 azelastine 137 mcg (0.1 %) nasal 2 spray intranasal .q am PRN 10/27/24 spray allergies or congestion #30 mL diazepam 10 mg tablet 5 mg (1/2 x 10 mg) PO .q hs prn 10/27/24 PRN muscle spasm 30 days #10 tabs hydroxyzine pamoate 25 mg capsule 25 - 50 mg (1 - 2 x 25 mg) PO 10/27/24 BEDTIME #60 caps levothyroxine 100 mcg tablet 100 mcg PO DAILY #90 tabs 12/02/24 metoprolol succinate 25 mg 25 mg PO DAILY #90 tabs 10/27/24 tablet,extended release 24 hr (Toprol XL) nitroglycerin 0.4 mg sublingual 0.4 mg sublingual Q5M PRN chest 10/27/24 tablet pain 30 days #30 tabs oxycodone-acetaminophen 7.5 mg-325 1 tab PO Q8H PRN pain 30 days #90 10/27/24 mg tablet tabs vitamin B complex 1 tab PO DAILY for itching/burning 10/27/24 #90 tabs furosemide 20 mg tablet 20 mg PO BID PRN Edema #60 tabs 11/04/24 meloxicam 7.5 mg tablet 7.5 mg PO DAILY #7 tabs 11/22/24 Allergies Allergy/AdvReac Type Severity Reaction Status Date / Time No Known Allergies Allergy Verified 11/22/24 12:18 Review of Systems General: Reports: 10 or more systems reviewed and unremarkable except in HPI and below PFSH ED PFSH: Medical History (Updated 11/22/24 @ 14:08 by MAT Flores) Chronic back pain Elevated blood-pressure reading, without diagnosis of hypertension Nocturnal cough Insomnia Adult BMI 40.0-44.9 kg/sq m Pre-diabetes Hyperlipidemia LDL goal <130 Peripheral neuritis of both feet Chronic bilateral back pain Asthma Allergies Atherosclerotic heart disease of [place] coronary artery with other forms of angina pectoris Angina & CABG, 01/27/[address] 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 Quiroga History of open heart surgery 01-27-[address] Grullon Surgeon in [place] History of replacement of both shoulder joints 2018 Family History Father CAD (coronary artery disease), Onset Age: 54 Dementia Diabetes Family/Other CAD (coronary artery disease) Cancer Stroke Mother Cancer Denies family history of Clotting disorder Chronic kidney disease (CKD) Suicide Anesthesia complication Bleeding disorder Lung disease Social History Smoking and tobacco/nicotine status: current every day tobacco/nicotine user Quit status (tobacco/nicotine): has quit using Year quit tobacco: 2009 Former quit date comment: 1ppd x 30 years Second hand smoke exposure: No Alcohol intake: current Alcohol intake frequency: holidays/special occasions only Alcohol type: beer Substance/Drug Use: never Adopted: No Caregiver/support person: No Lives independently: Yes Household members: none Housing: Manufactured/Mobile home Marital status: Single Number of children: 3 Number of grandchildren: 1 Highest education level completed: GED or Equivalent service: No Current occupational status: retired and disabled Current occupational exposures/hazards: No Pets and animals: Yes (inside) Pets & animals: dog(s) Leisure activites: other Leisure activities details: nothing Sexually active: No Do you think of yourself as: Straight/Heterosexual Current gender identity: Male Jenny/Yazidi: [place] Special jenny needs: No Agree to transfusion: Yes Physical Exam Const: COMMON NORMALS: no acute distress, patient oriented x3 and alert GENERAL APPEARANCE: cooperative ORIENTATION/CONSCIOUSNESS: Yes awake, Yes oriented to person, Yes oriented to place and Yes oriented to time Neck/C-Spine: COMMON NORMALS: full ROM GENERAL: Yes normal visual inspection Lymph: LYMPHATIC: no lymphadenopathy noted Resp: COMMON NORMALS: normal respiratory effort, No retractions and No use of accessory muscles EFFORT & INSPECTION: Yes able to speak in complete sentences and Yes symmetric chest movement Cardio: COMMON NORMALS: regular rate and Peripheral pulses 2+ throughout RATE: regular rate PERIPHERAL PULSES: Peripheral pulses 2+ throughout GI: COMMON NORMALS: Soft to palpation and non-tender INSPECTION: Yes normal to inspection PALPATION: Yes Soft to palpation RECTAL EXAM: Yes deferred Extremity: COMMON NORMALS: normal to inspection NARRATIVE EXTREMITY EXAM: Right lower extremity: Skin is dirty but dry and intact. There are no open wounds. There are areas of swelling and tenderness on the plantar/medial aspect of the foot Patient is able to flex and extend the knee Able to dorsiflex plantarflex foot Able to dorsiflex great toe Sensation is intact to light touch at medial, lateral, dorsal, plantar surface of the foot and first webspace DP pulses palpable and cap refills less than 3 seconds GENERAL: Yes normal exam except as noted Neuro: COMMON NORMALS: patient oriented x3 SENSORIUM/ORIENTATION: Yes alert, Yes oriented to person, Yes oriented to place and Yes oriented to time CRANIAL NERVES: Yes CN normal except as noted Psych: COMMON NORMALS: mental status grossly normal, Normal thought process present, cooperative, activity/motor behavior normal, denies homicidal ideation and denies suicidal ideation THOUGHT PROCESS: Normal thought process present Skin: COMMON NORMALS: no rashes or lesions noted, no wounds and turgor normal GENERAL SKIN EXAM: no rashes or lesions noted and turgor normal Course Vital Signs: Vital signs: Vital Signs Temperature 98.2 F 11/22/24 12:15 Pulse Rate 97 11/22/24 13:08 Respiratory Rate 20 H 11/22/24 13:08 Blood Pressure 137/79 11/22/24 13:08 Pulse Oximetry 98 11/22/24 13:08 Oxygen Delivery Me thod Room Air 11/22/24 13:08 MDM - Extremity (Nontraumatic) Medical Decision Making Patient is a 59-year-old man that reports right foot pain along the medial plantar surface of the foot and extends up to the ankle to posterior aspect of the talus. Patient underwent XR imaging of the foot which reveals no acute findings. His symptoms seem to be similar to plantar fasciitis. We are going to give him an injection of ketorolac. Patient is going to be given crutches since he is unable to walk appropriately. This will aid in him mobilizing safely. He is going to follow-up with podiatry. All questions answered XR interpretation done by ED provider, pending radiology final review Discharge Plan Discharge Patient Disposition: Home Clinical Impression: Acute foot pain, Plantar fasciitis Condition: Stable Prescriptions: New meloxicam 7.5 mg tablet 7.5 mg PO DAILY Qty: 7 0RF No Action amlodipine 10 mg tablet 10 mg PO QAM Qty: 90 3RF isosorbide mononitrate 60 mg tablet extended release 24 hr 60 mg PO DAILY Qty: 180 3RF Rx Instructions: take 1 tab ( 60mg ) in AM take 1/2 tab ( 30mg ) in PM loratadine 10 mg tablet 10 mg PO DAILY Qty: 90 3RF levalbuterol tartrate [Xopenex HFA] 45 mcg/actuation HFA aerosol inhaler 2 inh inhalation Q6H Qty: 45 1RF oxycodone-acetaminophen 7.5-325 mg tablet 1 tab PO Q8H PRN (Reason: pain) 30 Days Qty: 90 0RF Rx Instructions: Refill on her after previous 30 days diazepam 10 mg tablet 5 mg PO .q hs prn PRN (Reason: muscle spasm) 30 Days Qty: 10 1RF Rx Instructions: Refill on or after 30 days interval albuterol sulfate 90 mcg/actuation HFA aerosol inhaler 2 puff inhalation Q6H PRN (Reason: shortness of breath or wheezing) Qty: 8.5 5RF atorvastatin 80 mg tablet 40 mg PO BID Qty: 90 1RF azelastine 137 mcg (0.1 %) spray,non-aerosol 2 spray intranasal .q am PRN (Reason: allergies or congestion) Qty: 30 5RF Rx Instructions: administer into each nostril hydroxyzine pamoate 25 mg capsule 25 - 50 mg PO BEDTIME Qty: 60 0RF Rx Instructions: TAKE 1 TO 2 CAPSULES BY MOUTH ONCE DAILY 1 HOUR BEFORE BEDTIME levothyroxine 100 mcg tablet 100 mcg PO DAILY Qty: 90 1RF metoprolol succinate [Toprol XL] 25 mg tablet extended release 24 hr 25 mg PO DAILY Qty: 90 5RF nitroglycerin 0.4 mg tablet, sublingual 0.4 mg sublingual Q5M PRN (Reason: chest pain) 30 Days Qty: 30 3RF Rx Instructions: until response; do not exceed 3 doses per episode vitamin B complex Tablet 1 tab PO DAILY Qty: 90 3RF furosemide 20 mg tablet 20 mg PO BID PRN (Reason: Edema) Qty: 60 5RF aspirin [Adult Aspirin Regimen] 81 mg tablet,delayed release (DR/EC) 81 mg PO QAM niacin 500 mg tablet extended release See Rx Instructions .ROUTE .COMPLEX PRN (Reason: low HDL) Rx Instructions: One half a tab at bedtime for 1 weeks then 1 at bedtime for 1 week then 2 tablets at bedtime Discharge Orders: Discharge ED (Routine); Ordered 11/22/24 Ordered By: Jonathan Tanner Referrals: Boo Vigil DPM [Physician] - Caesar Isidro MD [Primary Care Provider] - Discharge Diet: Advance as tolerated Discharge Activity: Resume usual activity Patient Instructions: Plantar Fasciitis Exercises (ED), Opioid Safety, Pain Management Stand Alone Forms: Work/School Release Coding Level of Care Code ED Mandarin Speaking Nanny for Zeina Menchaca
[2024-11-22] MEDS: ketorolac 30 mg/mL INJ IM (14:06)
== END 2024-11-22 14:40 | disposition home or self-care (01) ==
PROVIDERS: Emergency Provider Nurse Practitioner; PCP Family Medicine
DX: M72.2 Plantar fascial fibromatosis (principal); Z79.82 Long term (current) use of aspirin; Z72.0 Tobacco use; Z95.1 Presence of aortocoronary bypass graft; J44.9 Chronic obstructive pulmonary disease, unspecified; E78.5 Hyperlipidemia, unspecified; I25.118 Atherosclerotic heart disease of native coronary artery with other forms of angina pectoris
CPT/HCPCS: 73630; 96372; 99284; E0114; J1885

== ENCOUNTER → 2024-12-17 07:51 | Outpatient (BNVA) | payer MEDICAID, SELFPAY ==
[2022-06-05 10:21] VITALS: BP 135/74; BMI 38.8
== END ==
PROVIDERS: PCP Family Medicine; Visit Provider Podiatrist Foot & Ankle Surgery
DX: R73.03 Prediabetes (principal); M79.671 Pain in right foot; M72.2 Plantar fascial fibromatosis; L60.8 Other nail disorders
CPT/HCPCS: 99213

== ENCOUNTER → 2024-12-26 08:33 | Outpatient (BNVA) | payer MEDICAID, SELFPAY ==
[2022-06-05 10:21] VITALS: BP 135/74; BMI 38.8
== END ==
PROVIDERS: PCP Family Medicine; Visit Provider Family Medicine
DX: E78.5 Hyperlipidemia, unspecified (principal); R73.03 Prediabetes; E03.9 Hypothyroidism, unspecified
CPT/HCPCS: 80053; 80061; 83036; 84439; 84443; 85025

== ENCOUNTER → 2025-02-13 09:12 | Outpatient (BNVA) | payer MEDICAID, SELFPAY ==
[2022-06-05 10:21] VITALS: BP 135/74; BMI 38.8
== END ==
PROVIDERS: PCP Family Medicine; Referring Provider Family Medicine; Visit Provider Nurse Practitioner Family
DX: M48.02 Spinal stenosis, cervical region (principal); M25.78 Osteophyte, vertebrae; M47.894 Other spondylosis, thoracic region; M47.816 Spondylosis without myelopathy or radiculopathy, lumbar region; M54.50 Low back pain, unspecified; G89.29 Other chronic pain; M54.2 Cervicalgia; M54.6 Pain in thoracic spine
CPT/HCPCS: 72040; 72072; 72110; 99214

== ENCOUNTER → 2025-03-09 07:59 | Outpatient (BNVA) | payer MEDICAID, SELFPAY ==
[2022-06-05 10:21] VITALS: BP 135/74; BMI 38.8
== END ==
PROVIDERS: PCP Family Medicine; Visit Provider Nurse Practitioner Family
DX: M79.2 Neuralgia and neuritis, unspecified (principal); M54.6 Pain in thoracic spine; G89.29 Other chronic pain; M54.50 Low back pain, unspecified; M54.2 Cervicalgia
CPT/HCPCS: 99213

== ENCOUNTER → 2025-03-26 08:36 | Outpatient (BNVA) | payer MEDICAID, SELFPAY ==
[2022-06-05 10:21] VITALS: BP 135/74; BMI 38.8
== END ==
PROVIDERS: PCP Family Medicine; Visit Provider Family Medicine
DX: E11.9 Type 2 diabetes mellitus without complications (principal); I25.118 Atherosclerotic heart disease of native coronary artery with other forms of angina pectoris
CPT/HCPCS: 80053; 80061; 83036; 84439; 84443; 85025

== ENCOUNTER → 2025-03-27 07:56 | Outpatient (BNVA) | payer MEDICAID, SELFPAY ==
[2022-06-05 10:21] VITALS: BP 135/74; BMI 38.8
== END ==
PROVIDERS: PCP Family Medicine; Visit Provider Nurse Practitioner Family
DX: M79.2 Neuralgia and neuritis, unspecified (principal); M54.6 Pain in thoracic spine; G89.29 Other chronic pain; M54.50 Low back pain, unspecified; M54.2 Cervicalgia
CPT/HCPCS: 99213

== ENCOUNTER → 2025-04-15 07:55 | Outpatient (BNVA) | payer MEDICAID, SELFPAY ==
[2022-06-05 10:21] VITALS: BP 135/74; BMI 38.8
== END ==
PROVIDERS: PCP Family Medicine; Visit Provider Nurse Practitioner Family
DX: M79.2 Neuralgia and neuritis, unspecified (principal); M54.6 Pain in thoracic spine; G89.29 Other chronic pain; M54.50 Low back pain, unspecified; M54.2 Cervicalgia
CPT/HCPCS: 99214

== ENCOUNTER 2025-04-27 13:53 | Outpatient (CLI) | payer MEDICAID, SELFPAY ==
[2022-06-05 10:21] VITALS: BP 135/74; BMI 38.8
--- NOTE | 2025-04-27 15:15 | MR_ITS ---
WS: [id number] MRI LUMBAR SPINE NONCONTRAST HISTORY: M54.16 - Radiculopathy, lumbar region COMPARISON: None available. TECHNIQUE: Sagittal and axial multisequence imaging is submitted. LEFT curvature lumbar spine. Disc spaces are all mildly narrowed and desiccated. No acute marrow edema or fracture. Conus terminates normally at L1-2 disc level. T12-L1: Mild annular disc bulging with mild encroachment upon the ventral thecal sac. No stenosis. L1-L2: Mild annular disc bulging with a tiny central disc protrusion. Small bilateral foraminal disc protrusions and osteophytes. Mild subarticular recess impingement. L2-L3: Mild annular disc bulging with facet and ligamentum flavum hypertrophy. Bilateral foraminal disc osteophyte complexes. Mild foraminal stenosis. Mild bilateral subarticular recess encroachment upon the traversing L3 nerve roots. L3-L4: Mild annular disc bulging with ligamentum flavum and facet arthritis. Bilateral foraminal disc osteophytes resulting in mild to moderate bilateral foraminal stenosis. Greater stenosis on the RIGHT. Mild central and bilateral subarticular recess stenosis. L4-L5: Mild annular disc bulging with severe ligamentum flavum and facet arthritis. Mild central, subarticular recess and foraminal stenosis. L5-S1: Facet joint arthritis. No stenosis. Paravertebral soft tissues are normal. MR/MR lumbar spine wo con* [id number] IMPRESSION: 1. No high-grade central or foraminal stenosis. 2. No acute fractures. 3. L3-4: Bilateral foraminal disc osteophytes resulting in mild to moderate bi lateral foraminal stenosis, RIGHT greater than LEFT. Mild central and bilateral subarticular recess stenosis. 4. L4-5: Mild central, subarticular recess and foraminal stenosis. 5. L2-3: Mild bilateral subarticular recess encroachment upon the traversing L 3 nerve roots.
== END 2025-04-27 13:54 | disposition home or self-care (01) ==
LOC: RAD 13:55
PROVIDERS: PCP Family Medicine; Visit Provider Nurse Practitioner Family
DX: M54.16 Radiculopathy, lumbar region (principal); M25.78 Osteophyte, vertebrae; M48.061 Spinal stenosis, lumbar region without neurogenic claudication; M43.8X4 Other specified deforming dorsopathies, thoracic region; M51.35 Other intervertebral disc degeneration, thoracolumbar region; M51.362 Other intervertebral disc degeneration, lumbar region with discogenic back pain and lower extremity pain; M51.26 Other intervertebral disc displacement, lumbar region; M24.28 Disorder of ligament, vertebrae; M47.896 Other spondylosis, lumbar region; M47.897 Other spondylosis, lumbosacral region
CPT/HCPCS: 72148

== ENCOUNTER → 2025-04-29 08:28 | Outpatient (BNVA) | payer MEDICAID, SELFPAY ==
[2022-06-05 10:21] VITALS: BP 135/74; BMI 38.8
== END ==
PROVIDERS: PCP Family Medicine; Visit Provider Nurse Practitioner Family
DX: M54.6 Pain in thoracic spine (principal); G89.29 Other chronic pain; M54.50 Low back pain, unspecified; M54.2 Cervicalgia; M21.611 Bunion of right foot; M21.612 Bunion of left foot; M21.41 Flat foot [pes planus] (acquired), right foot; M21.42 Flat foot [pes planus] (acquired), left foot; E11.42 Type 2 diabetes mellitus with diabetic polyneuropathy; L60.3 Nail dystrophy; M20.41 Other hammer toe(s) (acquired), right foot; M20.42 Other hammer toe(s) (acquired), left foot; Z79.84 Long term (current) use of oral hypoglycemic drugs
CPT/HCPCS: 99214

== ENCOUNTER 2025-04-30 10:32 | Emergency (ER) | payer MEDICAID, SELFPAY ==
[2022-06-05 10:21] VITALS: BP 135/74; BMI 38.8
[2025-04-30 10:33] VITALS: BP 162/92; PULSE 88; RESP 16; TEMP 36.7; O2SAT 97; BMI 41.5
--- NOTE | 2025-04-30 10:46 | CT_ITS ---
WS: [id number] CT HEAD TECHNIQUE: Noncontrast CT of the head obtained from the skullbase to the vertex. CLINICAL INFORMATION: Head Injury COMPARISON: None. DLP: 1283.[address] scans at [facility] use at least one of these dose optimization techniques: automated exposure control; mA and/or kV adjustment per patient size (includes targeted exams where dose is matched to clinical indication); or iterative reconstruction. FINDINGS: No evidence of intracranial hemorrhage or mass effect. Ventricular system and basal cisterns are patent. Mild small vessel changes with mild parenchymal volume loss. No extra-axial fluid collections. No evidence of mass or mass effect. Vascular calcification Paranasal sinuses and mastoid air cells are well aerated. .Normal visualized soft tissues. CT/CT head wo con* [id number] IMPRESSION: 1. No evidence of intracranial hemorrhage or mass effect. 2. No acute intracranial findings.
--- NOTE | 2025-04-30 12:06 | W.ED.HA ---
HPI - Headache General: Chief Complaint: Headache Stated Complaint: fighting heaches post fall Time Seen by Provider: 04/30/25 10:39 History of Present Illness: This patient is a 59-year-old white male who states that he fell at home a week ago and struck his head on a dresser. He is unsure if he lost consciousness. States ever since then he has had headaches and he has been sleepy. Has not had any nausea or vomiting. Past medical history includes COPD, coronary artery disease and [id number] diabetes. He does take 81 mg of aspirin per day. Related Data Home Medications ?Medication ?Instructions ?Recorded ?Confirmed aspirin 81 mg tablet,delayed 81 mg PO QAM heart 02/02/24 04/29/25 release (Adult Aspirin Regimen) niacin 500 mg tablet,extended See Rx Instructions .Route 02/02/24 04/29/25 release .COMPLEX PRN low HDL ranolazine 500 mg tablet,extended 500 mg PO BID 01/27/25 04/29/25 release,12 hr Previous Rx's ?Medication ?Instructions ?Recorded amlodipine 10 mg tablet 10 mg PO QAM blood pressure #90 08/15/24 tabs isosorbide mononitrate 60 mg 60 mg PO DAILY #180 tabs 08/15/24 tablet,extended release 24 hr atorvastatin 80 mg tablet 40 mg (1/2 x 80 mg) PO BID #90 tabs 10/27/24 hydroxyzine pamoate 25 mg capsule 25 - 50 mg (1 - 2 x 25 mg) PO 10/27/24 BEDTIME #60 caps metoprolol succinate 25 mg 25 mg PO DAILY #90 tabs 10/27/24 tablet,extended release 24 hr (Toprol XL) furosemide 20 mg tablet 20 mg PO BID PRN Edema #60 tabs 11/04/24 fluticasone 250 mcg-salmeterol 50 1 inh inhalation Q12H #60 ea 01/27/25 mcg/dose blistr powdr for inhalation (Advair Diskus) albuterol sulfate 90 mcg/actuation 1 inh inhalation QID PRN shortness 02/02/25 aerosol inhaler of breath or wheezing #8.5 grams azelastine 137 mcg (0.1 %) nasal 2 spray intranasal .q am PRN 03/06/25 spray allergies or congestion #30 mL loratadine 10 mg tablet 10 mg PO DAILY allergies #90 tabs 03/06/25 nitroglycerin 0.4 mg sublingual 0.4 mg sublingual Q5M PRN chest 03/06/25 tablet pain 30 days #30 tabs rollaid walker with seat #1 ea 03/26/25 levothyroxine 137 mcg tablet 137 mcg PO DAILY #60 tabs 03/27/25 metformin 500 mg tablet,extended 500 mg PO BID #180 tabs 03/27/25 release 24 hr (Glucophage XR) diazepam 10 mg tablet 5 mg (1/2 x 10 mg) PO .q hs prn 04/06/25 PRN muscle spasm 30 days #10 tabs oxycodone-acetaminophen 7.5 mg-325 1 tab PO Q8H PRN pain 30 days #90 04/06/25 mg tablet tabs cyclobenzaprine 5 mg tablet 10 mg (2 x 5 mg) PO TID PRN muscle 04/15/25 spasm #180 tabs gabapentin 300 mg capsule 900 mg (3 x 300 mg) PO TID #270 04/15/25 caps prednisone 20 mg tablet 20 mg PO DAILY 7 days #7 tabs 04/15/25 omeprazole 20 mg capsule,delayed 20 mg PO BID #90 caps 04/21/25 release Diabetic shoes #1 ea 04/29/25 Allergies Allergy/AdvReac Type Severity Reaction Status Date / Time No Known Allergies Allergy Verified 04/29/25 08:32 Review of Systems General: Reports: 10 or more systems reviewed and unremarkable except in HPI and below Neuro: Reports: headache(s) [facility] ED PFSH: Medical History Chronic back pain Elevated blood-pressure reading, without diagnosis of hypertension Nocturnal cough Insomnia Adult BMI 40.0-44.9 kg/sq m Hyperlipidemia LDL goal <130 Peripheral neuritis of both feet Chronic bilateral back pain Asthma Allergies Atherosclerotic heart disease of [place] coronary artery with other forms of angina pectoris Angina & CABG, 01/27/[address] Grullon 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 Quiroga History of open heart surgery 01-27-[address] Grullon Surgeon in [place] History of replacement of both shoulder joints 2018 Family History Father CAD (coronary artery disease), Onset Age: 54 Dementia Diabetes Family/Other CAD (coronary artery disease) Cancer Stroke Mother Cancer Denies family history of Clotting disorder Chronic kidney disease (CKD) Suicide Anesthesia complication Bleeding disorder Lung disease Social History Smoking and tobacco/nicotine status: former use of tobacco/nicotine Quit status (tobacco/nicotine): has quit using Year quit tobacco: 2009 Former quit date comment: 1ppd x 30 years Second hand smoke exposure: No Alcohol intake: current Alcohol intake frequency: holidays/special occasions only Alcohol type: beer Substance/Drug Use: never Adopted: No Caregiver/support person: No Lives independently: Yes Household members: none Housing: Manufactured/Mobile home Marital status: Single Number of children: 3 Number of grandchildren: 1 Highest education level completed: GED or Equivalent service: No Current occupational status: retired and disabled Current occupational exposures/hazards: No Pets and animals: Yes (inside) Pets & animals: dog(s) Leisure activites: other Leisure activities details: nothing Sexually active: No Do you think of yourself as: Straight/Heterosexual Current gender identity: Male Jenny/Zoroastrianism: Christian Special jenny needs: No Agree to transfusion: Yes Physical Exam Const: COMMON NORMALS: no acute distress, patient oriented x3 and no limitations GENERAL APPEARANCE: cooperative and comfortable HENMT: COMMON NORMALS: normocephalic, atraumatic, Normal nasal mucous membranes and turbinates present, moist oral mucous membranes and oropharynx normal HEAD & SCALP: normal to inspection, normocephalic and atraumatic FACE & SINUS: normal facial exam NOSE: Normal nasal mucous membranes and turbinates present Eye: COMMON NORMALS: Equal, round and reactive pupils present, EOMs intact bilaterally and conjunctivae normal GENERAL EYE: appearance normal, both eyes and all related structures CONJUNCTIVA: Yes conjunctivae normal PUPIL: Yes Equal, round and reactive pupils present Neck/C-Spine: COMMON NORMALS: supple and no JVD Chest: COMMONS NORMALS: normal inspection of the chest Resp: COMMON NORMALS: normal respiratory effort and clear to auscultation bilaterally AUSCULTATION: clear to auscultation bilaterally Cardio: COMMON NORMALS: no JVD, regular rate, regular rhythm, No gallops present (Cardio), No murmurs present (Cardio) and No rub (Cardio) RATE: regular rate RHYTHM: regular rhythm GI: COMMON NORMALS: Normal to inspection, nondistended, normoactive bowel sounds present, Soft to palpation and non-tender AUSCULTATION: Yes normoactive bowel sounds PALPATION: Yes Soft to palpation : COMMON NORMALS: Yes no CVA tenderness BLADDER/KIDNEY EXAM: Yes no CVA tenderness Back/Pelvis: COMMON NORMALS: no CVA tenderness and thoracic and lumbar spine normal to inspection Extremity: COMMON NORMALS: normal to inspection Neuro: COMMON NORMALS: patient oriented x3 and CN's II-XII intact bilaterally Psych: COMMON NORMALS: mental status grossly normal, Normal thought process present and cooperative THOUGHT PROCESS: Normal thought process present Skin: COMMON NORMALS: no rashes or lesions noted, turgor normal and no jaundice GENERAL SKIN EXAM: no rashes or lesions noted and turgor normal Course Vital Signs: Vital signs: Vital Signs Temperature 98.0 F 04/30/25 10:33 Pulse Rate 88 04/30/25 10:33 Respiratory Rate 16 04/30/25 10:33 Blood Pressure 162/92 04/30/25 10:33 Pulse Oximetry 97 04/30/25 10:33 Oxygen Delivery Me thod Room Air 04/30/25 10:33 MDM - Headache Medical Decision Making Head CT was read by the radiologist as normal. Results were discussed with the patient. Patient may have postconcussion syndrome. Recommended he take Tylenol and/or ibuprofen for discomfort. Recommended he follow-up with his primary care physician. He was discharged in stable condition. Lab Data Radiology Impressions Head CT 04/30/25 10:46 IMPRESSION: 1. No evidence of intracranial hemorrhage or mass effect. 2. No acute intracranial findings. All radiology interpretation(s) finalized by discharge Discharge Plan Discharge Patient Disposition: Home Clinical Impression: Postconcussion syndrome Condition: Stable Prescriptions: No Action amlodipine 10 mg tablet 10 mg PO QAM Qty: 90 3RF isosorbide mononitrate 60 mg tablet extended release 24 hr 60 mg PO DAILY Qty: 180 3RF Rx Instructions: take 1 tab ( 60mg ) in AM take 1/2 tab ( 30mg ) in PM (DME) rollaid walker with seat See Rx Instructions .Route .MEDSUPPLY Qty: 1 0RF Rx Instructions: As directed levothyroxine 137 mcg tablet 137 mcg PO DAILY Qty: 60 1RF metformin [Glucophage XR] 500 mg tablet extended release 24 hr 500 mg PO BID Qty: 180 1RF (DME) Diabetic shoes See Rx Instructions .ROUTE .MEDSUPPLY Qty: 1 0RF Rx Instructions: With 3 pairs of inserts ranolazine 500 mg tablet extended release 12 hr 500 mg PO BID fluticasone propion-salmeterol [Advair Diskus] 250-50 mcg/dose blister with device 1 inh inhalation Q12H Qty: 60 2RF prednisone 20 mg tablet 20 mg PO DAILY 7 Days Qty: 7 0RF cyclobenzaprine 5 mg tablet 10 mg PO TID PRN (Reason: muscle spasm) Qty: 180 0RF gabapentin 300 mg capsule 900 mg PO TID Qty: 270 1RF atorvastatin 80 mg tablet 40 mg PO BID Qty: 90 1RF hydroxyzine pamoate 25 mg capsule 25 - 50 mg PO BEDTIME Qty: 60 0RF Rx Instructions: TAKE 1 TO 2 CAPSULES BY MOUTH ONCE DAILY 1 HOUR BEFORE BEDTIME metoprolol succinate [Toprol XL] 25 mg tablet extended release 24 hr 25 mg PO DAILY Qty: 90 5RF furosemide 20 mg tablet 20 mg PO BID PRN (Reason: Edema) Qty: 60 5RF albuterol sulfate 90 mcg/actuation HFA aerosol inhaler 1 inh inhalation QID PRN (Reason: shortness of breath or wheezing) Qty: 8.5 2RF azelastine 137 mcg (0.1 %) spray,non-aerosol 2 spray intranasal .q am PRN (Reason: allergies or congestion) Qty: 30 5RF Rx Instructions: administer into each nostril nitroglycerin 0.4 mg tablet, sublingual 0.4 mg sublingual Q5M PRN (Reason: chest pain) 30 Days Qty: 30 3RF Rx Instructions: until response; do not exceed 3 doses per episode loratadine 10 mg tablet 10 mg PO DAILY Qty: 90 3RF diazepam 10 mg tablet 5 mg PO .q hs prn PRN (Reason: muscle spasm) 30 Days Qty: 10 1RF Rx Instructions: Refill on or after 30 days interval oxycodone-acetaminophen 7.5-325 mg tablet 1 tab PO Q8H PRN (Reason: pain) 30 Days Qty: 90 0RF Rx Instructions: Refill on her after previous 30 days omeprazole 20 mg capsule,delayed release(DR/EC) 20 mg PO BID Qty: 90 0RF aspirin [Adult Aspirin Regimen] 81 mg tablet,delayed release (DR/EC) 81 mg PO QAM niacin 500 mg tablet extended release See Rx Instructions .ROUTE .COMPLEX PRN (Reason: low HDL) Rx Instructions: One half a tab at bedtime for 1 weeks then 1 at bedtime for 1 week then 2 tablets at bedtime Discharge Orders: Discharge ED (Routine); Ordered 04/30/25 Ordered By: Roman Hernández Referrals: Caesar Isidro MD [Primary Care Provider, Family Practice] Patient Instructions: Post Concussion Syndrome (ED) Print Language: [place]er Coding Level of Care Code ED 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
[2025-04-30 12:13] VITALS: PULSE 87; O2SAT 98
== END 2025-04-30 12:14 | disposition home or self-care (01) ==
PROVIDERS: Emergency Provider Emergency Medicine; PCP Family Medicine
DX: R51.9 Headache, unspecified (principal); F07.81 Postconcussional syndrome; Z79.84 Long term (current) use of oral hypoglycemic drugs; Z79.82 Long term (current) use of aspirin; Z87.891 Personal history of nicotine dependence; J44.9 Chronic obstructive pulmonary disease, unspecified; E78.5 Hyperlipidemia, unspecified; I25.118 Atherosclerotic heart disease of native coronary artery with other forms of angina pectoris; I10 Essential (primary) hypertension
CPT/HCPCS: 70450; 99284

== ENCOUNTER → 2025-05-01 09:19 | Outpatient (BNVA) | payer MEDICAID, SELFPAY ==
[2022-06-05 10:21] VITALS: BP 135/74; BMI 38.8
== END ==
PROVIDERS: PCP Family Medicine; Visit Provider Internal Medicine Cardiovascular Disease
DX: I25.118 Atherosclerotic heart disease of native coronary artery with other forms of angina pectoris (principal); E11.42 Type 2 diabetes mellitus with diabetic polyneuropathy; Z79.84 Long term (current) use of oral hypoglycemic drugs; Z87.891 Personal history of nicotine dependence; I10 Essential (primary) hypertension
CPT/HCPCS: 99214

== ENCOUNTER → 2025-05-27 08:13 | Outpatient (BNVA) | payer MEDICAID, SELFPAY ==
[2025-05-21 08:44] VITALS: BP 135/74; BMI 38.8
== END ==
PROVIDERS: PCP Family Medicine; Visit Provider Anesthesiology Pain Medicine
DX: M47.816 Spondylosis without myelopathy or radiculopathy, lumbar region (principal); M54.6 Pain in thoracic spine; G89.29 Other chronic pain
CPT/HCPCS: 64493; 64494; 64495; J3490; J9999

== ENCOUNTER → 2025-06-10 09:01 | Outpatient (BNVA) | payer MEDICAID, SELFPAY ==
[2025-05-21 08:44] VITALS: BP 135/74; BMI 38.8
== END ==
PROVIDERS: PCP Family Medicine; Visit Provider Nurse Practitioner Family
DX: M54.6 Pain in thoracic spine (principal); G89.29 Other chronic pain; M54.50 Low back pain, unspecified; M54.2 Cervicalgia; Z87.891 Personal history of nicotine dependence
CPT/HCPCS: 99214

== ENCOUNTER 2025-06-22 17:02 | Emergency (ER) | payer MEDICAID, SELFPAY ==
[2025-05-21 08:44] VITALS: BP 135/74; BMI 38.8
[2025-06-22 17:05] VITALS: BP 153/87; PULSE 91; RESP 16; TEMP 36.8; O2SAT 97
--- OUTSIDE RECORDS SUMMARY | 2025-06-22 17:05 | XMS_ITS | Clinical Summary ---
Author Organization [facility] Address [address] [address] Care Team Providers Care Gear Roller Name Role Phone Zack Edmondson DO Primary Care Provider [phone] Allergies No known active allergies Medications aspirin (ECOTRIN EC) 81 mg Tablet, Delayed Release (E.C.) Take 81 mg by mouth daily. 07/29/20 19 Active nebulizerIndicati ons:Moderate persistent asthma without complication Length of need 99 monthsNebulizer with compressor, Kit: Disposable Nebulizer Kit, 2 per month, filters , areosol mask: Yes. Name of Medication albuterol 1 Each 0 12/25/19 20 Active naloxone (NARCAN) 4 mg/spray [place], Non-Aerosol EMERGENCY USE ONLY: Administer 1 spray (4 mg) in one nostril one time. May repeat in alternating nostrils every 2-3 min until responsive or EMS arrives. 2 Each 3 05/10/20 20 Active baclofen (LIORESAL) 10 mg tabletIndications :Primary osteoarthritis of right knee,Hoffa's fat pad disease (CMS/HCC) TAKE 1 TABLET BY MOUTH THREE TIMES DAILY 90 Tablet 5 01/12/20 21 Active fluticasone propionate (FLONASE) 50 mcg/spray [place], Suspension nasal inhalerIndication s:Middle ear effusion, bilateral Administer 2 Sprays in each nostril daily. 16 Gram 0 03/07/20 21 Active budesonide-formot Tabatha (SYMBICORT) 160-4.5 mcg/actuation HFA Aerosol Inhaler Take 2 Puffs by inhalation 2 times daily. 10.2 Gram 11 03/30/20 21 Active montelukast (SINGULAIR) 10 mg tablet Take 1 Tablet (10 mg) by mouth daily at bedtime. 30 Tablet 11 03/30/20 21 Active olopatadine (PATADAY) 0.2 % solution Administer 1 Drop in both eyes 1 time daily as needed for Allergies. 5 mL 0 04/28/20 21 Active metoprolol succinate (TOPROL XL) 25 mg Extended Release 24 hour tablet Take 0.5 Tablets (12.5 mg) by mouth daily. 45 Tablet 2 06/21/20 21 Active albuterol (PROVENTIL,VENTOL IN) 2.5 mg /3 mL (0.083 %) Solution for NebulizationIndic ations:Moderate persistent asthma without complication Take 3 mL (2.5 mg) by inhalation every 4 hours as needed for Shortness of Breath or Wheezing. 300 mL 6 08/26/20 21 Active Mucus Clearing Device DeviceIndications :Chronic obstructive pulmonary disease, unspecified COPD type (CMS/HCC),Bronchi ectasis without complication (CMS/HCC) Use 4 times per day to help with mucus clearing. 1 Each 08/24/20 21 Active potassium chloride (KLOR-CON) 10 mEq Extended Release tablet TAKE 1 TABLET BY MOUTH TWICE DAILY WITH MEALS 180 Tablet 3 08/24/20 21 Active sodium chloride 3 % Solution for NebulizationIndic ations:Chronic obstructive pulmonary disease, unspecified COPD type (CMS/HCC),Chronic cough,Mucus plugging of bronchi Take 2 mL by inhalation every 12 hours. 120 mL 09/08/20 21 Active amLODIPine (NORVASC) 2.5 mg tablet Take 1 tablet by mouth once daily 90 Tablet 1 10/10/20 21 Active Euthyrox 112 mcg tablet TAKE 1 TABLET BY MOUTH ONCE DAILY IN THE MORNING 30 Tablet 5 10/10/20 21 Active diazePAM (VALIUM) 10 mg tabletIndications :Generalized anxiety disorder Take 1 Tablet (10 mg) by mouth every 8 hours as needed for Anxiety. 30 Tablet 2 12/05/19 22 Active cetirizine (ZyrTEC) 10 mg tablet Take 1 Tablet (10 mg) by mouth daily. 30 Tablet 5 12/16/19 22 Active phentermine (ADIPEX P) 37.5 mg tabletIndications :Morbid obesity (CMS/HCC) Take 1 Tablet (37.5 mg) by mouth daily before breakfast. 30 Tablet 2 12/16/19 22 Active atorvastatin (LIPITOR) 40 mg tabletIndications :Mixed hyperlipidemia TAKE 1 TABLET BY MOUTH ONCE DAILY WITH SUPPER 90 Tablet 3 01/12/20 22 Active furosemide (LASIX) 20 mg tablet TAKE 1 TABLET BY MOUTH TWICE DAILY 7 HOURS APART 180 Tablet 3 01/23/20 22 Active loratadine (CLARITIN) 10 mg tabletIndications :Seasonal allergic rhinitis due to pollen Take 1 Tablet (10 mg) by mouth daily. 90 Tablet 3 02/02/20 22 Active Additional Information Patient taking differently:10 mg OralDAILY PRN, Reported on 01/23/2025 HYDROcodone-aceta minophen (NORCO) 10-325 mg TabletIndications :Primary osteoarthritis of right shoulder,DDD (degenerative disc disease), cervical,Osteoart hritis of right knee, unspecified osteoarthritis type,Hoffa's fat pad disease (CMS/HCC),Status post total shoulder arthroplasty, right Take 1 Tablet by mouth 2 times daily as needed for Pain. FILL DATE 03/22/22 Max Daily Amount: 2 Tablets 60 Tablet 03/02/20 22 Active isosorbide mononitrate (IMDUR) 60 mg Extended Release 24 hour tablet Take 60 mg by mouth daily. 03/20/20 23 Active hydrOXYzine HCL (ATARAX) 25 mg tablet TAKE 1 TABLET BY MOUTH 4 TIMES DAILY NEEDED FOR ITCHING 03/06/20 23 Active nitroglycerin (NITROSTAT) 0.4 mg Tablet, Sublingual Place 1 Tablet (0.4 mg) under tongue every 5 minutes as needed for Chest Pain. 25 Tablet 3 01/23/20 25 Active ranolazine ER (RANEXA) 500 mg Extended Release 12 hour tablet Take 1 Tablet (500 mg) by mouth 2 times daily. 60 Tablet 12 01/23/20 25 Active Active Problems Problem Noted Date Diagnosed Date Hypertension, essential 01/23/2025 Other forms of angina pectoris 01/23/2025 Stable angina 01/23/2025 Severe obesity (BMI 35.0-39.9) with comorbidity 10/09/2023 History of tobacco use 10/09/2023 Anxiety and depression 10/09/2023 Prediabetes 10/09/2023 Preoperative general physical examination 2022 Insomnia, unspecified 04/12/2021 Abnormal stress test 05/17/2020 Overview (05/31/2021): Added automatically from request for surgery [id number] ASHD (arteriosclerotic heart disease) 05/17/2020 Overview (05/31/2021): Added automatically from request for surgery [id number] S/P CABG (coronary artery bypass graft) 05/17/20 Overview (05/31/2021): Added automatically from request for surgery [id number] Dyspnea on exertion 05/10/2020 Gastroesophageal reflux disease without esophagi tis 05/10/2020 Chronic cough 05/10/2020 Primary osteoarthritis of right knee 11/06/2019 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/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, right 0 07/29/2019 Atherosclerosis of [place] co ronary artery of [place] heart with stable angina pectoris 01/27/2019 History of coronary artery bypass surgery 2018 Overview (05/31/2021): Added automatically from request for surgery [id number] Status post coronary artery bypass grafting 02/2019 DDD (degenerative disc disease), cervical 2016 Essential hypertension 09/17/2016 Generalized anxiety disorder 04/19/2015 COPD (chronic obstructive pulmonary disease) Arthritis 04/19/2015 H/O total shoulder replacement 03/25/2014 SNHL (sensorineural hearing loss) 08/28/2013 Tinnitus 08/28/2013 Mixed hyperlipidemia 06/21/2010 Mental disability 06/21/2010 Hyperlipidemia Resolved Problems Problem Noted Date Diagnosed Date Resolved Date COPD with acute exacerbation 03/07/2021 05/31/2021 Leukocytosis 04/19/2015 10/09/2023 Encounters Date Type Department Care Team Description 06/10/2025 External Device Data ST[facility] ABSTRACTION Provider, Abstract 06/10/2025 External Device Data [facility] ABSTRACTION Provider, Abstract 06/10/2025 External Device Data [facility] ABSTRACTION Provider, Abstract 06/09/2025 External Device Data [facility] ABSTRACTION Provider, Abstract 05/19/2025 External Device Data ST[facility] ABSTRACTION Provider, Abstract 04/28/2025 External Device Data ST[facility] ABSTRACTION Provider, Abstract 04/21/2025 External Device Data ST[facility] ABSTRACTION Provider, Abstract 04/21/2025 External Device Data ST[facility] ABSTRACTION Provider, Abstract 04/16/2025 External Device Data ST[facility] ABSTRACTION Provider, Abstract 04/16/2025 External Device Data ST[facility] ABSTRACTION Provider, Abstract 04/15/2025 External Device Data STL ABSTRACTION Provider, Abstract 04/14/2025 External Device Data STL ABSTRACTION Provider, Abstract from Last 3 Months Immunizations Immunization Administration Dates Next Due (SPIKEVAX) (12 YRS UP PRIMAR Y SERIES) COVID-19 VACCINE - MRNA-1273(PF) 100 MCG/0.5 ML IM SUSP 10/02/2021 INFLUENZA VACCINE QUADRIVALE NT 3 YR UP PF IM 07/13/2020,07/28/2019,08/26/2018,2015 INFLUENZA VACCINE QUADRIVALE NT 6 MOS UP IM 08/15/2017 INFLUENZA VACCINE QUADRIVALE NT 6 MOS UP PF IM 07/13/2020,07/28/2019,08/26/2018,2015 Influenza Seasonal Unspecifi ed Formulation IM 08/04/2021,07/13/2020,07/28/2019,2017 Influenza Vaccine Quad Split 18 Yrs+ Im 08/15/2017 Influenza Vaccine Quad Split 6-35 Mo Pf Im 08/15/2017 Influenza Vaccine Split 3+ Yrs IM 09/14/2015, Influenza Vaccine Tri Split 4+ Im 2019,07/28/2019,08/26/2018,2014,09/18/2013 Family History Medical History Relation Name Comments Heart Disease Father Heart Surgery Father bypass High Cholesterol Father Hypertension Father Breast Cancer Mother Relation Name Status Comments Daughter NONE Father Alive Mother (Age 63) Son NONE Social History Tobacco Use Types Packs/Day Years Used Date Smoking Tobacco: Former Cigarettes 1 30 0 06/20/1981 - 06/20/2011 Smokeless Tobacco: Never Tobacco Cessation:Counseling Given: Not Answered Alcohol Use Standard Drinks/Week Comments Not Currently 0 (1 standard drink = 0.6 oz pur e alcohol) Sex and Gender Information Value Date Recorded Sex Assigned at Not on file Legal Sex Male 9:31 AM PERMIT TECHNICIAN Gender Identity Not on file Sexual Orientation Not on file Last Filed Vital Signs Vital Sign Reading Time Taken Comments Blood Pressure 138/84 01/23/2025 7:58 AM PERMIT TECHNICIAN Pulse 74 01/23/2025 7:58 AM PERMIT TECHNICIAN Temperature 36.4 C (97.5 F) 10/09/2023 2:34 PM PERMIT TECHNICIAN Respiratory Rate 16 01/16/2022 9:41 AM PERMIT TECHNICIAN Oxygen Saturation 97% 10/09/2023 2:34 PM PERMIT TECHNICIAN Inhaled Oxygen Concentration - - Weight 145.2 kg (320 lb) 01/23/2025 7:58 AM PERMIT TECHNICIAN Height 185.4 cm (6' 1 ) 01/23/2025 7:58 AM PERMIT TECHNICIAN Body Mass Index 42.22 01/23/2025 7:58 AM PERMIT TECHNICIAN Plan of Treatment Upcoming Encounters Date Type Department Care Team (Late st Contact Info) Description 01/29/2026 8:45 AM PERMIT TECHNICIAN Office Visit [facility] [address] [place] [address] Fareed Garcia MD [address] [place] [address] Health Maintenance Due Date Last Done Comments DTAP/TDAP/TD VACCINES (1 - Tdap) 1982 Preventative Visit-Managed Medicaid 1982 FIT/FOBT Q 1 year 2008 Flex Sig/CT Colonography Q 5 years 2008 Lung Cancer Screening 2013 ZOSTER VACCINE (1 of 2) 2013 FIT-DNA Q 3 years 11/12/2021 11/12/2018 COLORECTAL SCREENING 12/31/2021 12/31/2018, 12/31/2018, 12/31/2018 Colorectal Cancer Screening 12/31/2021 RSV VACCINE (60+ or ) (1 - Risk 60-74 years 1-dose series) 2023 INFLUENZA VACCINE (#1) 2025 , 07/13/2020, 07/13/2020, Additional history exists Pre-Diabetes and Diabetes Screening 10/09/2026 10/09/2023, 01/23/2019, 05/03/2016 COVID-19 Vaccine Completed 12/26/2024, 05/2021, 02/24/2021, Additional history exists Medical Devices Implanted Type Area News Production Assistant Device Identifier Shelf Expiration Date Model / Serial / Lot Log [id number] - Implant Search - 1 - Cement Palacos R+[id number] Implanted:Qty: 1 on 05/26/2013 Cement Left: Shoulder JULIUS [employer] INC 08/26/2016 [id number] 0-01 / NA / [id number] Cement Simplex Hvisc 6194-1-010 - [id number] Implanted:01/2019 by Keyshawn Dimas MD (Quantity not on file) Cement Right: Shoulder SARBJIT- [employer] INT INC 02/23/2021 6194-1-010 / / [id number] Ring Vein Marking 10mm 35-3497 - [id number] Implanted:Qty: 1 on 01/27/2019 by Jarvis Grullon MD Other N/A: Heart TELEFLEX- PILL WECK CHOLO L P 35-8460 / / Glenoid Base Hybrid Cmprhnsv [id number] - Sna Implanted:Qty: 1 on 05/26/2013 Shoulder Left: Shoulder BIOMET INC 03/26/2018 [id number] / NA / [id number] Glenoid Hybrid Post- Regenerex [id number] - Sna Implanted:Qty: 1 on 05/26/2013 Shoulder Left: Shoulder BIOM[employer] INC 03/26/2023 [id number] / NA / [id number] Head Hum Versa-Dial [id number] - Sna Implanted:Qty: 1 on 05/26/2013 Shoulder Left: Shoulder BIOMET INC 01/24/2023 [id number] / NA / [id number] Stem Hmrl Cmprhnsv Mini [id number] - Sna Implanted:Qty: 1 on 05/26/2013 Shoulder Left: Shoulder BI[employer] INC 12/27/2022 [id number] / NA / [id number] Stem Hum Versa-Dial Std Tpr [id number] - Sna Implanted:Qty: 1 on 05/26/2013 Shoulder Left: Shoulder BI[employer]ET INC 01/24/2023 [id number] / NA / [id number] Comp Cortiloc Rt 15 Med [id number] - [id number] Implanted:Qty: 1 on 07/29/2019 by Keyshawn Dimas MD Shoulder Right: Shoulder CARLOS [employer]CH INC 07/17/2023 [id number] / / 2023-07-17 Head Hum Simpliciti [id number] - [id number] Implanted:Qty: 1 on 07/29/2019 by Keyshawn Dimas MD Shoulder Right: Shoulder TORNIER INC 05/25/2020 [id number] / / [id number] Head Hum Simpliciti Nucleus Sz3 [id number] - [id number] Implanted:Qty: 1 on 07/29/2019 by Keyshawn Dimas MD Shoulder Right: Shoulder [employer]OR[employer] INC 07/26/2023 [id number] / / [id number] Explanted Type Area News Production Assistant Device Identifier Shelf Expiration Date Model / Serial / Lot Guidewire Explanted:Qty: 1 on 07/29/2019 by Keyshawn Dimas MD Right: Shoulder [employer]ORNIER INC 04/16/2024 / / [id number] Procedures Procedure Name Priority Date/Time Associated Diagnosis Comments HEMOGLOBIN A1C Routine 10/09/2023 3:08 PM PERMIT TECHNICIAN COLONOSCOPY REPORT Routine 12/31/2018 1: 59 PM PERMIT TECHNICIAN COLON CANCER SCREEN, STOOL DNA Routine 11/12/2018 11:00 AM PERMIT TECHNICIAN from Last 3 Months or Most Recently Relevant to Health Maintenance Results * (ABNORMAL) HEMOGLOBIN A1C (10/09/2023 3:08 PM PERMIT TECHNICIAN) HEMOGLOBIN A1C 5.7(H) <=5.6 % 10/09/2023 3:28 PM PERMIT TECHNICIAN [facility] EST. AVG GLUCOSE, A1C 117 mg/dL 10/09/2023 3:28 PM PERMIT TECHNICIAN [facility] Blood Venipuncture / Unknown 10/09/2023 3:08 PM PERMIT TECHNICIAN 10/09/2023 3:08 PM PERMIT TECHNICIAN Narrative [facility] [place] [employer] - 10/09/2023 3:28 PM PERMIT TECHNICIAN HGB A1C INTERPRETATION NORMAL: <5.7% PRE-DIABETES: 5.7 - 6.4% DIABETES: 6.5% OR GREATER us Heraclio Busch MD CHEMISTRY ORDERABLES Final Resu lt [facility] CLIA #[id number] [address] [place] [id number] * COLONOSCOPY REPORT (12/31/2018 1:59 PM PERMIT TECHNICIAN) 12/31/2018 1:59 PM PERMIT TECHNICIAN us Dionicio Quiroga MD GI PROCEDURE ORDERABLES Final Re sult [facility] * (ABNORMAL) COLON CANCER SCREEN, STOOL DNA (11/12/2018 11:00 AM PERMIT TECHNICIAN) COLOGUARD RESULT Positive (A) Not Applicable 11/22/2018 12:26 PM PERMIT TECHNICIAN [facility] Comment: It is recommended that a positive Cologuard screen be clinically correlated and followed-up with a structural examination of the colon such as diagnostic colonoscopy. Colonoscopies performed for a positive Cologuard may find as the most clinically significant lesion: colorectal cancer [4.0%], advanced adenoma (including sessile serrated polyps greater than or equal to 1cm diameter) [20%] or non- advanced adenoma [31%]; or no colorectal neoplasia [45%]. These estimates are derived from a prospective cross-sectional screening study of 10,000 individuals at average risk for colorectal cancer who were screened with both Cologuard and colonoscopy. (Table 3, Rayne Rao et al, N Engl J Med 2014;370(14):0385-0090.) Test Type: Composite algorithmic analysis of stool DNA-biomarkers with hemoglobin immunoassay. Quantitative values of individual biomarkers are not reportable and are not associated with individual biomarker result reference ranges. Precautions and Limitations: Cologuard is intended for colorectal cancer screening of adults of either sex, 50 years or older, who are at typical average-risk for colorectal cancer. A negative Cologuard test result does not guarantee the absence of colorectal cancer or advanced adenoma (pre-cancer). Patients with a negative Cologuard test result should be advised to continue participating in a colorectal cancer screening program. Cologuard may produce a positive result, even though a colonoscopy may not find colorectal cancer or precancerous polyps. The performance of Cologuard has been established in a cross sectional study (i.e., single point in time). Performance has not been evaluated in adults who have been previously tested with Cologuard or in patients less than 50 years of age. Cologuard has been approved for use by the [place].S. FDA. Cologuard performance data in a 10,000 patient pivotal study using colonoscopy as the reference method can be accessed at the following location: [email or web address]. Additional description of the Cologuard test process, warnings and precautions can be found at [email or web address]. Rx Only. Stool STOOL SPECIMEN / Unknown 11/12/2018 11:00 AM PERMIT TECHNICIAN 11/14/2018 5:30 AM PERMIT TECHNICIAN Suzy Sotelo DO BODY FLUIDS AND STOOLS Ev doll Result [facility] CLIA # [id number] [address] [facility] [facility], [address] [place] [address] from Last 3 Months or Most Recently Relevant to Health Maintenance Insurance [place] * Guarantor: GURPREET ARMIJO Account Type Relation to Patient Date of Phone Billing Address Personal/Family [address] [place] [address] RX INFOCROSSING Medicaid RX [employer] PLANS (INTERNAL) [facility] Plans [place]ICAID [place] Advance Directives For more information, please contact: [phone] * Full Code (Latest Code Status on File) Date Activated Date Inactivated Comments 04/18/2015 3:18 PM 04/20/2015 2:52 PM Care Teams Gear Roller Relationship Specialty Start Date End Date Zack Edmondson DO [address], [place] [address] PCP - General 03/07/21
--- NOTE | 2025-06-22 17:35 | XRR_ITS ---
PROCEDURE INFORMATION: Exam: XR Chest Exam date and time: 06/22/2025 5:42 PM Age: 59 years old Clinical indication: Shortness of breath; Prior surgery; Surgery date: 6+ months; Surgery type: Cabg balwinder shoulder; Additional info: Short of breath TECHNIQUE: Imaging protocol: Radiologic exam of the chest. Views: 1 view. COMPARISON: CR XR chest 1V portable [id number] 08/17/2024 2:56 PM FINDINGS: Limitations: Patient rotation. Lungs: New increased opacities in the cqfc-pztunoz-gdjd-right lung bases appear linear and likely represent areas of atelectasis. No definitive consolidation. Pleural spaces: No pleural effusion or pneumothorax. Heart/Mediastinum: Heart size is within normal limits. Bones/joints: The patient is status post sternotomy. No acute osseous abnormalities are seen. XR/XR chest 1V portable [id number] IMPRESSION: 1. New increased opacities in the yruf-nqyydku-nnuy-right lung bases appear linear and likely represent areas of atelectasis. 2. No definitive evidence of acute cardiopulmonary disease.
[2025-06-22 17:38] VITALS: BP 153/82; PULSE 88; O2SAT 97
--- NOTE | 2025-06-22 17:38 | W.ED.NECK ---
HPI - Neck Pain/Injury General: Chief Complaint: Neck Pain/Injury Stated Complaint: L side of neck pain Time Seen by Provider: 06/22/25 17:20 History of Present Illness: Patient is a 59-year-old gentleman with COPD, HLD, DM, presents to the ER with left lateral anterior mid neck discomfort. Denies any shortness of breath, however developed a dry cough 1 week ago. He states his lungs are bad. He states occasional sputum with green production. Maybe occasionally chills, however no fever. Patient states he is in the air conditioning. Denies any heat exposure. No sick contact Associated symptoms: Denies headache(s) or nausea Related Data Home Medications ?Medication ?Instructions ?Recorded ?Confirmed aspirin 81 mg tablet,delayed 81 mg PO QAM heart 02/02/24 06/10/25 release (Adult Aspirin Regimen) niacin 500 mg tablet,extended See Rx Instructions .Route 02/02/24 06/10/25 release .COMPLEX PRN low HDL ranolazine 500 mg tablet,extended 500 mg PO BID 01/27/25 06/10/25 release,12 hr Previous Rx's ?Medication ?Instructions ?Recorded amlodipine 10 mg tablet 10 mg PO QAM blood pressure #90 08/15/24 tabs isosorbide mononitrate 60 mg 60 mg PO DAILY #180 tabs 08/15/24 tablet,extended release 24 hr atorvastatin 80 mg tablet 40 mg (1/2 x 80 mg) PO BID #90 tabs 10/27/24 hydroxyzine pamoate 25 mg capsule 25 - 50 mg (1 - 2 x 25 mg) PO 10/27/24 BEDTIME #60 caps metoprolol succinate 25 mg 25 mg PO DAILY #90 tabs 10/27/24 tablet,extended release 24 hr (Toprol XL) furosemide 20 mg tablet 20 mg PO BID PRN Edema #60 tabs 11/04/24 fluticasone 250 mcg-salmeterol 50 1 inh inhalation Q12H #60 ea 01/27/25 mcg/dose blistr powdr for inhalation (Advair Diskus) azelastine 137 mcg (0.1 %) nasal 2 spray intranasal .q am PRN 03/06/25 spray allergies or congestion #30 mL loratadine 10 mg tablet 10 mg PO DAILY allergies #90 tabs 03/06/25 nitroglycerin 0.4 mg sublingual 0.4 mg sublingual Q5M PRN chest 03/06/25 tablet pain 30 days #30 tabs rollaid walker with seat #1 ea 03/26/25 metformin 500 mg tablet,extended 500 mg PO BID #180 tabs 03/27/25 release 24 hr (Glucophage XR) Diabetic shoes #1 ea 05/11/25 levothyroxine 137 mcg tablet 137 mcg PO DAILY #60 tabs 05/11/25 diazepam 10 mg tablet 5 mg (1/2 x 10 mg) PO .q hs prn 06/01/25 PRN muscle spasm 30 days #10 tabs fluticasone propionate 50 See Rx Instructions .Route 06/01/25 mcg/actuation nasal .COMPLEX #16 grams spray,suspension oxycodone-acetaminophen 7.5 mg-325 1 tab PO Q8H PRN pain 30 days #90 06/01/25 mg tablet tabs cyclobenzaprine 5 mg tablet 10 mg (2 x 5 mg) PO TID PRN muscle 06/10/25 spasm #180 tabs gabapentin 300 mg capsule 900 mg (3 x 300 mg) PO TID #90 caps 06/11/25 omeprazole 20 mg capsule,delayed 20 mg PO BID #90 caps 06/18/25 release albuterol sulfate 90 mcg/actuation 3 inh inhalation Q6H PRN shortness 06/22/25 aerosol inhaler (Ventolin HFA) of breath or wheezing #8.5 grams doxycycline hyclate 100 mg capsule 100 mg PO BID 10 days #20 caps 06/22/25 methylprednisolone 4 mg tablets in See Rx Instructions PO .COMPLEX 06/22/25 a dose pack (Medrol (Lyle)) #21 ea Allergies Allergy/AdvReac Type Severity Reaction Status Date / Time No Known Allergies Allergy Verified 06/10/25 09:10 Review of Systems General: Reports: 10 or more systems reviewed and unremarkable except in HPI and below Const: Reports: chills; Denies: fever(s) Eyes: Denies: change in vision or blurry vision ENMT: Denies: throat pain or dental pain Card: Denies: chest pain or palpitations Resp: Reports: dyspnea, productive cough, non-productive cough and change in phlegm color; Denies: wheezing, stridor or pain on inspiration GI: Denies: abdominal pain, nausea or vomiting : Denies: flank pain or difficulty urinating Musc: Denies: neck pain or back pain Neuro: Denies: headache(s) or numbness in extremities Psych: Denies: anxiety or depression Endo: Denies: polyuria or polydipsia Will/Lymph: Denies: easy bruising or easy bleeding PFS ED PFSH: Medical History (Updated 06/22/25 @ 19:46 by TORI Condon) Chronic back pain Elevated blood-pressure reading, without diagnosis of hypertension Nocturnal cough Insomnia Adult BMI 40.0-44.9 kg/sq m Hyperlipidemia LDL goal <130 Peripheral neuritis of both feet Chronic bilateral back pain Asthma Allergies Atherosclerotic heart disease of [place] coronary artery with other forms of angina pectoris Angina & CABG, 01/27/[address] Grullon Surgeon in [place] CAD Colon polyps Hypothyroidism DJD (degenerative joint disease) COPD (chronic obstructive pulmonary disease) Hypertension Surgical History History of right knee surgery Reattach patella Hx of colonoscopy with polypectomy 12/31/[address] Quiroga History of open heart surgery 01-27-[address] Grullon Surgeon in [place] History of replacement of both shoulder joints 2018 Family History Father CAD (coronary artery disease), Onset Age: 54 Dementia Diabetes Family/Other CAD (coronary artery disease) Cancer Stroke Mother Cancer Denies family history of Clotting disorder Chronic kidney disease (CKD) Suicide Anesthesia complication Bleeding disorder Lung disease Social History Smoking and tobacco/nicotine status: never used tobacco/nicotine Quit status (tobacco/nicotine): has quit using Year quit tobacco: 2009 Former quit date comment: 1ppd x 30 years Second hand smoke exposure: No Alcohol intake: current Alcohol intake frequency: holidays/special occasions only Alcohol type: beer Substance/Drug Use: never Adopted: No Caregiver/support person: No Lives independently: Yes Household members: none Housing: Manufactured/Mobile home Marital status: Single Number of children: 3 Number of grandchildren: 1 Highest education level completed: GED or Equivalent service: No Current occupational status: retired and disabled Current occupational exposures/hazards: No Pets and animals: Yes (inside) Pets & animals: dog(s) Leisure activites: other Leisure activities details: nothing Sexually active: No Do you think of yourself as: Straight/Heterosexual Current gender identity: Male Jenny/Confucianism: Taoist Special jenny needs: No Agree to transfusion: Yes Physical Exam Const: COMMON NORMALS: no acute distress, average body habitus and patient oriented x3 HENMT: COMMON NORMALS: normocephalic and atraumatic HEAD & SCALP: normocephalic and atraumatic Lymph: LYMPHATIC: no lymphadenopathy noted Chest: COMMONS NORMALS: normal inspection of the chest and normal palpation of entire chest wall Resp: COMMON NORMALS: normal respiratory effort EFFORT & INSPECTION: Yes symmetric chest movement AUSCULTATION: wheezes expiratory wheezes Cardio: COMMON NORMALS: regular rate and regular rhythm RATE: regular rate RHYTHM: regular rhythm GI: COMMON NORMALS: Normal to inspection, nondistended, normoactive bowel sounds present, Soft to palpation and non-tender PALPATION: Yes Soft to palpation : COMMON NORMALS: Yes no CVA tenderness BLADDER/KIDNEY EXAM: Yes no CVA tenderness Back/Pelvis: COMMON NORMALS: no CVA tenderness Extremity: COMMON NORMALS: normal to inspection, full ROM and capillary refill normal Neuro: COMMON NORMALS: patient oriented x3, CN's II-XII intact bilaterally and moves all extremities Psych: COMMON NORMALS: mental status grossly normal and Normal thought process present THOUGHT PROCESS: Normal thought process present Skin: COMMON NORMALS: no rashes or lesions noted and no wounds GENERAL SKIN EXAM: no rashes or lesions noted Course Reevaluation(s): Reevaluation #1: Neck pain resolved after aerosol treatment. Vital Signs: Vital signs: Vital Signs Temperature 98.3 F 06/22/25 17:05 Pulse Rate 96 06/22/25 18:07 Respiratory Rate 20 H 06/22/25 18:00 Blood Pressure 153/82 06/22/25 17:38 Pulse Oximetry 98 06/22/25 18:00 Oxygen Delivery Me thod Room Air 06/22/25 18:00 MDM - Neck Pain/Injury Medical Decision Making Patient is 59-year-old gentleman with COPD that presents due to this left anterior lateral neck pain and association of a dry cough with minimal sputum over the last 1 week. His neck pain improved after DuoNeb. Prior to his aerosol treatment, he did have a slight amount of stridor in his neck on auscultation, and wheezes throughout expiratory in his lungs. After his DuoNeb, this all resolved. As well, his neck pain resolved. Suspect this is secondary to an acute exacerbation of COPD. Caution patient regarding his steroid use given his diabetes. He was given Solu-Medrol 80 mg x 1 here, Medrol Dosepak, and doxycycline sent to the pharmacy for acute exacerbation of COPD. I did not appreciate a increase in density in his parotid gland, however did discuss with patient to utilize sour candies in case he does have a small calcification. All patient's questions answered to his satisfaction. Medical Records I reviewed the patient's medical records. Lab Data I reviewed the patient's lab results. 06/22/25 17:53 06/22/25 18:13 Radiology Impressions Chest X-Ray 06/22/25 17:35 IMPRESSION: 1. New increased opacities in the [id number]-right lung bases appear linear and likely represent areas of atelectasis. 2. No definitive evidence of acute cardiopulmonary disease. Laboratory Results WBC 11.37 10^3/uL (3.29-11.43) 06/22/25 17:53 RBC 5.18 10^6/uL (3.85-5.65) 06/22/25 17:53 Hgb 16.60 g/dL (11.27-16.99) 06/22/25 17:53 Hct 49.2 % (37-53) 06/22/25 17:53 MCV 95.0 fl (82-101) 06/22/25 17:53 MCH 32.0 pg (27-33) 06/22/25 17:53 MCHC 33.7 g/dL (30-55) 06/22/25 17:53 RDW 13.4 % (12.1-15.1) 06/22/25 17:53 Plt Count 285 10^3/cmm (157-399) 06/22/25 17:53 MPV 9.6 fL (7.4-10.4) 06/22/25 17:53 Neut % (Auto) 57.4 % 06/22/25 17:53 Lymph % (Auto) 29.6 % 06/22/25 17:53 [place] % (Auto) 8.8 % 06/22/25 17:53 Eos % (Auto) 2.9 % 06/22/25 17:53 Baso % (Auto) 0.9 % 06/22/25 17:53 Neut # (Auto) 6.53 10^3/uL (1.8-7.7) 06/22/25 17:53 Lymph # (Auto) 3.4 10^3/uL (0.8-4.8) 06/22/25 17:53 [place] # (Auto) 1.0 10^3/uL (0.2-0.9) H 06/22/25 17:53 Eos # (Auto) 0.3 10^3/uL (0.0-0.8) 06/22/25 17:53 Baso # (Auto) 0.1 10^3/uL (0.0-0.1) 06/22/25 17:53 Nucleated RBC % (auto) 0 % 06/22/25 17:53 Nucleated RBCs # 0.0 /100WBC 06/22/25 17:53 Sodium 138 mmol/L (136-145) 06/22/25 18:13 Potassium 4.2 mmol/L (3.5-5.1) 06/22/25 18:13 Chloride 101 mmol/L (98-107) 06/22/25 18:13 Carbon Dioxide 21 mmol/L (22-29) L 06/22/25 18:13 Anion Gap 20.2 (5-19) H 06/22/25 18:13 BUN 15 mg/dL (8-23) 06/22/25 18:13 Creatinine 0.9 mg/dL (0.7-1.2) 06/22/25 18:13 GFR Calculation 85.8 mL/min (90-130) L 06/22/25 18:13 Glucose 147 mg/dL (65-115) H 06/22/25 18:13 Calculated Osmolality 290 mOsm/kg (285-295) 06/22/25 18:13 Lactic Acid 2.1 mmol/L (0.5-2.2) 06/22/25 17:53 Calcium 9.2 mg/dL (8.5-10.5) 06/22/25 18:13 Total Bilirubin 0.3 mg/dL (0.15-1.2) 06/22/25 18:13 AST 29 U/L (0-40) 06/22/25 18:13 ALT 50 U/L (0-41) H 06/22/25 18:13 Alkaline Phosphatase 79 U/L (40-130) 06/22/25 18:13 Total Protein 7.3 g/dL (6.6-8.7) 06/22/25 18:13 Albumin 4.4 g/dL (3.5-5.2) 06/22/25 18:13 Globulin 2.9 g/dL (1.3-4.6) 06/22/25 18:13 Procalcitonin 0.08 ng/mL (0-0.5) 06/22/25 18:13 TSH 3.42 uIU/mL (0.27-4.20) 06/22/25 18:13 All radiology interpretation(s) finalized by discharge Discharge Plan Discharge Patient Disposition: Home Clinical Impression: Acute exacerbation of chronic obstructive pulmonary disease, Neck pain Condition: Stable Prescriptions: New doxycycline hyclate 100 mg capsule 100 mg PO BID 10 Days Qty: 20 0RF methylprednisolone [Medrol (Lyle)] 4 mg tablets,dose pack See Rx Instructions .ROUTE .COMPLEX Qty: 21 0RF Rx Instructions: for 6 days albuterol sulfate [Ventolin HFA] 90 mcg/actuation HFA aerosol inhaler 3 inh inhalation Q6H PRN (Reason: shortness of breath or wheezing) Qty: 8.5 0RF Rx Instructions: with aerochamber No Action amlodipine 10 mg tablet 10 mg PO QAM Qty: 90 3RF isosorbide mononitrate 60 mg tablet extended release 24 hr 60 mg PO DAILY Qty: 180 3RF Rx Instructions: take 1 tab ( 60mg ) in AM take 1/2 tab ( 30mg ) in PM (DME) rollaid walker with seat See Rx Instructions .Route .MEDSUPPLY Qty: 1 0RF Rx Instructions: As directed metformin [Glucophage XR] 500 mg tablet extended release 24 hr 500 mg PO BID Qty: 180 1RF cyclobenzaprine 5 mg tablet 10 mg PO TID PRN (Reason: muscle spasm) Qty: 180 6RF ranolazine 500 mg tablet extended release 12 hr 500 mg PO BID fluticasone propion-salmeterol [Advair Diskus] 250-50 mcg/dose blister with device 1 inh inhalation Q12H Qty: 60 2RF (DME) Diabetic shoes See Rx Instructions .ROUTE .MEDSUPPLY Qty: 1 0RF Rx Instructions: With 3 pairs of inserts levothyroxine 137 mcg tablet 137 mcg PO DAILY Qty: 60 1RF atorvastatin 80 mg tablet 40 mg PO BID Qty: 90 1RF hydroxyzine pamoate 25 mg capsule 25 - 50 mg PO BEDTIME Qty: 60 0RF Rx Instructions: TAKE 1 TO 2 CAPSULES BY MOUTH ONCE DAILY 1 HOUR BEFORE BEDTIME metoprolol succinate [Toprol XL] 25 mg tablet extended release 24 hr 25 mg PO DAILY Qty: 90 5RF furosemide 20 mg tablet 20 mg PO BID PRN (Reason: Edema) Qty: 60 5RF azelastine 137 mcg (0.1 %) spray,non-aerosol 2 spray intranasal .q am PRN (Reason: allergies or congestion) Qty: 30 5RF Rx Instructions: administer into each nostril nitroglycerin 0.4 mg tablet, sublingual 0.4 mg sublingual Q5M PRN (Reason: chest pain) 30 Days Qty: 30 3RF Rx Instructions: until response; do not exceed 3 doses per episode loratadine 10 mg tablet 10 mg PO DAILY Qty: 90 3RF fluticasone propionate 50 mcg/actuation spray,suspension See Rx Instructions .ROUTE .COMPLEX Qty: 16 1RF Dose Instruction: USE 2 SPRAY(S) IN EACH NOSTRIL EVERY DAY AT BEDTIME NEEDED FOR CONGESTION Rx Instructions: USE 2 SPRAY(S) IN EACH NOSTRIL EVERY DAY AT BEDTIME NEEDED FOR CONGESTION oxycodone-acetaminophen 7.5-325 mg tablet 1 tab PO Q8H PRN (Reason: pain) 30 Days Qty: 90 0RF Rx Instructions: Refill on her after previous 30 days diazepam 10 mg tablet 5 mg PO .q hs prn PRN (Reason: muscle spasm) 30 Days Qty: 10 1RF Rx Instructions: Refill on or after 30 days interval gabapentin 300 mg capsule 900 mg PO TID Qty: 90 6RF omeprazole 20 mg capsule,delayed release(DR/EC) 20 mg PO BID Qty: 90 0RF aspirin [Adult Aspirin Regimen] 81 mg tablet,delayed release (DR/EC) 81 mg PO QAM niacin 500 mg tablet extended release See Rx Instructions .ROUTE .COMPLEX PRN (Reason: low HDL) Rx Instructions: One half a tab at bedtime for 1 weeks then 1 at bedtime for 1 week then 2 tablets at bedtime Discharge Orders: Discharge ED (Routine); Ordered 06/22/25 Ordered By: Jayla Abel Referrals: Caesar Isidro MD [Primary Care Provider, Family Practice] Discharge Diet: Low Salt Discharge Activity: Resume usual activity Patient Instructions: COPD (Chronic Obstructive Pulmonary Disease) (ED), Patient Portal & Allie Instructions Activity Restrictions/Additional Instructions: Medication has been sent to the pharmacy of choice. Take the antibiotics as prescribed twice daily with food. Avoid sun or wear sunscreen if in the sun. Avoid milk products during when you are taking them. Utilize a probiotic [id number] or active culture yogurt to avoid infectious diarrhea. Medrol Dosepak is for your increasing shortness of breath. Medrol Dosepak however will increase your blood glucose, therefore take your diabetic medication as scheduled and may need to be cautious and hold Medrol Dosepak after the first 2 days if blood sugar is greater than 300 on 2 occasions. Albuterol inhaler was sent to the pharmacy for your shortness of breath. Take as prescribed with the chamber. Return to ED for increasing shortness of breath, or return of your neck pain. Obtain sour candy and suck on that side to your mouth to see if that improves as well. You will need to call your doctor tomorrow to schedule a follow-up visit. No pneumonia was seen on this visit, however following up on your COPD is important. As noted, please discontinue cigarettes to improve with your shortness of breath today. Print Language: Armenian Coding Level of Care Code ED Interlocker Maintainer for Zeina Menchaca
[2025-06-22] MEDS: methylPREDNISolone sod succ 125 mg/2 mL INJ 80 MG IVP (17:57)
[2025-06-22 18:00] VITALS: PULSE 93; RESP 20; O2SAT 98
[2025-06-22 18:06] LABS: Hematocrit 49.2 % (37-53); Hemoglobin 16.60 g/dL (11.27-16.99); Mean Corpuscular HGB Conc 33.7 g/dL (30-55); Mean Corpuscular Hemoglobin 32.0 pg (27-33); Mean Corpuscular Volume 95.0 fl (82-101); Nucleated Red Blood Cells % 0 %; Platelet Count 285 10^3/cmm (157-399); Red Blood Count 5.18 10^6/uL (3.85-5.65); White Blood Count 11.37 10^3/uL (3.29-11.43)
[2025-06-22 18:07] VITALS: PULSE 96
[2025-06-22 18:17] LABS: Lactic Sepsis W/Reflex 2.1 mmol/L (0.5-2.2)
[2025-06-22 18:43] LABS: Procalcitonin 0.08 ng/mL (0-0.5); Thyroid Stimulating Hormone 3.42 uIU/mL (0.27-4.20)
[2025-06-22 18:54] LABS: Alanine Aminotransferase 50 U/L (0-41); Albumin Level 4.4 g/dL (3.5-5.2); Alkaline Phosphatase 79 U/L (40-130); Anion Gap 20.2 (5-19); Aspartate Amino Transferase 29 U/L (0-40); Blood Urea Nitrogen 15 mg/dL (8-23); Calcium 9.2 mg/dL (8.5-10.5); Carbon Dioxide 21 mmol/L (22-29); Chloride 101 mmol/L (98-107); Creatinine Clr Calc Pharmacy 125.3340; Globulin 2.9 g/dL (1.3-4.6); Glucose 147 mg/dL (65-115); Osmolality Calculated 290 mOsm/kg (285-295); Potassium 4.2 mmol/L (3.5-5.1); Sodium 138 mmol/L (136-145); Total Protein 7.3 g/dL (6.6-8.7)
[2025-06-22 19:51] LABS: Reflex Lactate Order REFLEX LACTIC ORDERD
== END 2025-06-22 19:57 | disposition home or self-care (01) ==
PROVIDERS: Emergency Provider Physician Assistant; PCP Family Medicine
DX: J44.1 Chronic obstructive pulmonary disease with (acute) exacerbation (principal); M54.2 Cervicalgia; Z79.82 Long term (current) use of aspirin; Z87.891 Personal history of nicotine dependence; E78.5 Hyperlipidemia, unspecified; I10 Essential (primary) hypertension; E11.9 Type 2 diabetes mellitus without complications
CPT/HCPCS: 36415; 71045; 80053; 83605; 84145; 84443; 85025; 94640; 96374; 99284; J2919; J9999

== ENCOUNTER → 2025-07-13 08:15 | Outpatient (BNVA) | payer MEDICAID, SELFPAY ==
[2025-05-21 08:44] VITALS: BP 135/74; BMI 38.8
== END ==
PROVIDERS: PCP Family Medicine; Visit Provider Family Medicine
DX: E03.9 Hypothyroidism, unspecified (principal); E11.42 Type 2 diabetes mellitus with diabetic polyneuropathy
CPT/HCPCS: 80053; 83036; 84439; 84443

== ENCOUNTER → 2025-08-31 10:38 | Outpatient (BNVA) | payer MEDICAID, SELFPAY ==
[2025-08-27 16:03] VITALS: BP 149/89; BMI 39.9
== END ==
PROVIDERS: PCP Family Medicine; Visit Provider Nurse Practitioner Family
DX: M54.6 Pain in thoracic spine (principal); G89.29 Other chronic pain; M54.50 Low back pain, unspecified; M54.2 Cervicalgia
CPT/HCPCS: 99214

== ENCOUNTER 2025-09-10 08:40 | Emergency (ER) | payer MEDICAID, SELFPAY ==
[2025-09-10 08:28] VITALS: BP 149/89; BMI 39.9
--- NOTE | 2025-09-10 08:45 | ECG_ITS ---
[facility]: 2025[facility]10 Pat Name: Gurpreet Velez Department: Room: Gender: Male [employer]: : 1965 Requested By: Dalton Medrano Order Number: [id number] Katie MD: Salvatore Kincaid M.D. Measurements Intervals [place] Rate: 75 P: 34 WI: 201 QRS: 17 QRSD: 86 T: 30 QT: 347 QTc: 390 Interpretive Statements SINUS RHYTHM Compared to ECG 09/21/2022 13:03:27 No significant changes Electronically Signed On 09-12-2025 12:04:21 CDT by Salvatore Kincaid M.D. [email or web address] [id number]
--- NOTE | 2025-09-10 08:45 | XR_ITS ---
WS: [id number] XR chest 1V portable [id number] REASON FOR EXAM: chest pain FINDINGS: The chest is unchanged compared to the previous examination of 06/22/2025. Sternal sutures. Previous aortocoronary artery bypass surgery. Moderate ectasia and tortuosity of the ascending aorta and arch. Cardiomegaly. Calcified granulomas disease bilaterally. No acute pulmonary parenchymal or pleural abnormality. Bilateral shoulder replacements. XR/XR chest 1V portable [id number] IMPRESSION: Stable chest with cardiomegaly as above.
--- OUTSIDE RECORDS SUMMARY | 2025-09-10 08:47 | XMS_ITS | Clinical Summary ---
Author Organization [facility] Address [address] [address] Care Team Providers Care Absorption And Adsorption Engineer Name Role Phone Zack Edmondson DO Primary Care Provider [phone] Allergies No known active allergies Medications aspirin (ECOTRIN EC) 81 mg Tablet, Delayed Release (E.C.) Take 81 mg by mouth daily. 07/29/20 19 Active nebulizerIndicati ons:Moderate persistent asthma without complication Length of need 99 monthsNebulizer with compressor, Kit: Disposable Nebulizer Kit, 2 per month, filters , areosol mask: Yes. Name of Medication albuterol 1 Each 0 12/25/19 20 Active naloxone (NARCAN) 4 mg/spray [place], Non-Aerosol EMERGENCY USE ONLY: Administer 1 spray [...] 21 Active fluticasone propionate (FLONASE) 50 mcg/spray [place], Suspension nasal inhalerIndication s:Middle ear effusion, bilateral [...] (05/31/2021): Added automatically from request for surgery [id number] ASHD (arteriosclerotic heart disease) 05/17/2020 Overview (05/31/2021): Added automatically from request for surgery [id number] S/P CABG (coronary artery bypass graft) 05/17/20 Overview (05/31/2021): Added automatically from request for surgery [id number] Dyspnea on exertion 05/10/2020 Gastroesophageal reflux disease without esophagi tis 05/10/2020 Chronic cough 05/10/2020 Primary osteoarthritis of right knee 11/06/2019 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/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, right 0 07/29/2019 Atherosclerosis of [place] co ronary artery of [place] heart with stable angina pectoris 01/27/2019 History of coronary artery bypass surgery 2018 Overview (05/31/2021): Added automatically from request for surgery [id number] Status post coronary artery bypass grafting 02/2019 [...] Encounters Date Type Department Care Team Description 08/18/2025 External Device Data STL ABSTRACTION Provider, Abstract 07/29/2025 External Device Data ST[facility] ABSTRACTION Provider, Abstract 07/21/2025 External Device Data [facility] ABSTRACTION Provider, Abstract 07/01/2025 External Device Data ST[place] ABSTRACTION Provider, Abstract 06/23/2025 External Device Data STL ABSTRACTION Provider, Abstract [...] drink = 0.6 oz pur e alcohol) Feeling Safe Answer Date Recorded Are you in a relationship wi th someone who hurts you emotionally and/or physically? No 10/09/2023 Sex and Gender Information Value Date Recorded Sex Assigned at Not on file Legal Sex Male 9:31 AM RN OPERATING ROOM Gender Identity Not on file Sexual Orientation Not on file Last Filed Vital Signs Vital Sign Reading Time Taken Comments Blood Pressure 138/84 01/23/2025 7:58 AM RN OPERATING ROOM Pulse 74 01/23/2025 7:58 AM RN OPERATING ROOM Temperature 36.4 C (97.5 F) 10/09/2023 2:34 PM RN OPERATING ROOM Respiratory Rate 16 01/16/2022 9:41 AM RN OPERATING ROOM Oxygen Saturation 97% 10/09/2023 2:34 PM RN OPERATING ROOM Inhaled Oxygen Concentration - - Weight 145.2 kg (320 lb) 01/23/2025 7:58 AM RN OPERATING ROOM Height 185.4 cm (6' 1 ) 01/23/2025 7:58 AM RN OPERATING ROOM Body Mass Index 42.22 01/23/2025 7:58 AM RN OPERATING ROOM Plan of Treatment Upcoming Encounters Date Type Department Care Team (Late st Contact Info) Description 01/29/2026 8:45 AM RN OPERATING ROOM Office Visit [facility] [address] [place] [address] Fareed Garcia MD [address] [place] [address] Health Maintenance Due Date Last [...] history exists Medical Devices Implanted Type Area Engineering Model Maker Device Identifier Shelf Expiration Date Model / Serial / Lot Log [id number] - Implant Search - 1 - Cement Palacos [id number] Implanted:Qty: 1 on 05/26/2013 Cement Left: Shoulder JULIUS US INC 08/26/2016 [id number] 0-01 / NA / [id number] Cement Simplex Hvisc 6194-1-010 - [id number] Implanted:01/2019 by Keyshawn Dimas MD (Quantity not on file) Cement Right: Shoulder SARBJIT- HOWMEDICA INT INC 02/23/2021 [id number] / / [id number] Ring Vein Marking 10mm [id number] - [id number] Implanted:Qty: 1 on 01/27/2019 by Jarvis Grullon MD Other N/A: Heart TELEFLEX- PILL WECK CHOLO L P [id number] / / Glenoid Base Hybrid Cmprhnsv [id number] - Sna Implanted:Qty: 1 on 05/26/2013 Shoulder Left: Shoulder BIOMET INC 03/26/2018 [id number] / NA / [id number] Glenoid Hybrid Post- Regenerex [id number] - Sna Implanted:Qty: 1 on 05/26/2013 Shoulder Left: Shoulder BIOMET INC 03/26/2023 [id number] / NA / [id number] Head Hum Versa-Dial [id number] - Sna Implanted:Qty: 1 on 05/26/2013 Shoulder Left: Shoulder BI[employer]ET INC 01/24/2023 [id number] / NA / [id number] Stem Hmrl Cmprhnsv Mini [id number] - Sna Implanted:Qty: 1 on 05/26/2013 Shoulder Left: Shoulder [employer]ET INC 12/27/2022 [id number] / NA / [id number] Stem Hum Versa-Dial Std Tpr [id number] - Sna Implanted:Qty: 1 on 05/26/2013 Shoulder Left: Shoulder BI[employer]ET INC 01/24/2023 [id number] / NA / [id number] Comp Cortiloc Rt 15 Med [id number] - [id number] Implanted:Qty: 1 on 07/29/2019 by Keyshawn Dimas MD Shoulder Right: Shoulder CARLOS MED [employer]CH INC 07/17/2023 [id number] / / 2023-07-17 Head Hum Simpliciti [id number] - [id number] Implanted:Qty: 1 on 07/29/2019 by Keyshawn Dimas MD Shoulder Right: Shoulder TORNIER INC 05/25/2020 [id number] / / [id number] Head Hum Simpliciti Nucleus Sz3 [id number] - [id number] Implanted:Qty: 1 on 07/29/2019 by Keyshawn Dimas MD Shoulder Right: Shoulder [employer]OR[employer] INC 07/26/2023 [id number] / / [id number] Explanted Type Area Engineering Model Maker Device Identifier Shelf Expiration Date Model / Serial / Lot Guidewire Explanted:Qty: 1 on 07/29/2019 by Keyshawn Dimas MD Right: Shoulder [employer]ORNIER INC 04/16/2024 / / [id number] Procedures Procedure Name Priority Date/Time Associated Diagnosis Comments HEMOGLOBIN A1C Routine 10/09/2023 3:08 PM RN OPERATING ROOM COLONOSCOPY REPORT Routine 12/31/2018 1: 59 PM RN OPERATING ROOM COLON CANCER SCREEN, STOOL DNA Routine 11/12/2018 11:00 AM RN OPERATING ROOM from Last 3 Months or Most Recently Relevant to Health Maintenance Results * (ABNORMAL) HEMOGLOBIN A1C (10/09/2023 3:08 PM RN OPERATING ROOM) HEMOGLOBIN A1C 5.7(H) <=5.6 % 10/09/2023 3:28 PM RN OPERATING ROOM [facility] EST. AVG GLUCOSE, A1C 117 mg/dL 10/09/2023 3:28 PM RN OPERATING ROOM [facility] Blood Venipuncture / Unknown 10/09/2023 3:08 PM RN OPERATING ROOM 10/09/2023 3:08 PM RN OPERATING ROOM Narrative [facility] - 10/09/2023 3:28 PM RN OPERATING ROOM HGB A1C INTERPRETATION NORMAL: <5.7% PRE-DIABETES: 5.7 - 6.4% DIABETES: 6.5% OR GREATER us Heraclio Busch MD CHEMISTRY ORDERABLES Final Resu lt [facility] CLIA #[id number] [address] [id number] * COLONOSCOPY REPORT (12/31/2018 1:59 PM RN OPERATING ROOM) 12/31/2018 1:59 PM RN OPERATING ROOM us Dionicio Quiroga MD GI PROCEDURE ORDERABLES Final Re sult [facility] * (ABNORMAL) COLON CANCER SCREEN, STOOL DNA (11/12/2018 11:00 AM RN OPERATING ROOM) COLOGUARD RESULT Positive (A) Not Applicable 11/22/2018 12:26 PM RN OPERATING ROOM [facility] Comment: It is recommended that a positive [...] both Cologuard and colonoscopy. (Table 3, Rayne Verdugo. et al, N Engl J Med 2014;370(14):5425-3385.) Test Type: Composite algorithmic analysis of stool [...] can be accessed at the following location: [email or web address]. Additional description of the Cologuard test process, warnings and precautions can be found at [email or web address]. Rx Only. Stool STOOL SPECIMEN / Unknown 11/12/2018 11:00 AM RN OPERATING ROOM 11/14/2018 5:30 AM RN OPERATING ROOM us Suzy Sotelo DO BODY FLUIDS AND STOOLS Ev doll Result [facility] CLIA # [id number] [address] [place] [place] [address] from Last 3 Months or Most Recently Relevant to Health Maintenance Insurance [place] * Guarantor: GURPREET ARMIJO Account Type Relation to Patient Date of Phone Billing Address Personal/Family [address] [place] [address] RX INFOCROSSING Medicaid RX [employer] PLANS (INTERNAL) [facility] Internal Plans [place] Advance Directives For more information, please contact: [phone] * Full Code (Latest Code Status on File) Date Activated Date Inactivated Comments 04/18/2015 3:18 PM 04/20/2015 2:52 PM Care Teams Absorption And Adsorption Engineer Relationship Specialty Start Date End Date Zack Edmondson DO [address] [place] [address] PCP - General 03/07/21
[2025-09-10 08:52] VITALS: BP 138/91; PULSE 86; RESP 16; TEMP 37.2; O2SAT 97; BMI 38.1
[2025-09-10 09:12] LABS: Hematocrit 46.2 % (37-53); Hemoglobin 15.80 g/dL (11.27-16.99); Mean Corpuscular HGB Conc 34.2 g/dL (30-55); Mean Corpuscular Hemoglobin 32.2 pg (27-33); Mean Corpuscular Volume 94.3 fl (82-101); Nucleated Red Blood Cells % 0 %; Platelet Count 252 10^3/cmm (157-399); Red Blood Count 4.90 10^6/uL (3.85-5.65); White Blood Count 10.94 10^3/uL (3.29-11.43)
[2025-09-10 09:31] LABS: Troponin(5th) Baseline 9 ng/L (0-15)
[2025-09-10 09:32] LABS: Alanine Aminotransferase 40 U/L (0-41); Albumin Level 4.3 g/dL (3.5-5.2); Alkaline Phosphatase 76 U/L (40-130); Anion Gap 17.7 (5-19); Aspartate Amino Transferase 22 U/L (0-40); Blood Urea Nitrogen 16 mg/dL (8-23); Calcium 8.8 mg/dL (8.5-10.5); Carbon Dioxide 21 mmol/L (22-29); Chloride 104 mmol/L (98-107); Creatinine Clr Calc Pharmacy 135.9248; Globulin 2.5 g/dL (1.3-4.6); Glucose 141 mg/dL (65-115); Osmolality Calculated 290 mOsm/kg (285-295); Potassium 4.7 mmol/L (3.5-5.1); Sodium 138 mmol/L (136-145); Total Protein 6.8 g/dL (6.6-8.7)
--- NOTE | 2025-09-10 09:35 | W.ED.CHESTPA ---
HPI - Chest Pain General: Chief Complaint: Chest Pain Stated Complaint: CP SOB Time Seen by Provider: 09/10/25 08:41 History of Present Illness: 60-year-old male with a known history of coronary artery disease presents emergency room complaining of intermittent chest pain for the last 5 days waxes and wanes he has not anything that exacerbates it. He has noticed that taking nitro improves it from around 8 to a 5. He is still having chest comfort now. He previously had bypass states he had a failed attempt at angiography in the past due to difficulty with access. He is diabetic markedly overweight with a BMI of 38. He denies history of sleep apnea he is a former smoker and drinker. Associated symptoms: Deny abdominal pain, dyspnea or fever(s) Related Data Home Medications ?Medication ?Instructions ?Recorded ?Confirmed aspirin 81 mg tablet,delayed 81 mg PO QAM heart 02/02/24 09/11/25 release (Adult Aspirin Regimen) niacin 500 mg tablet,extended See Rx Instructions .Route 02/02/24 09/11/25 release .COMPLEX PRN low HDL ranolazine 500 mg tablet,extended 500 mg PO BID 01/27/25 09/11/25 release,12 hr Previous Rx's ?Medication ?Instructions ?Recorded amlodipine 10 mg tablet 10 mg PO QAM blood pressure #90 08/15/24 tabs isosorbide mononitrate 60 mg 60 mg PO DAILY #180 tabs 08/15/24 tablet,extended release 24 hr atorvastatin 80 mg tablet 40 mg (1/2 x 80 mg) PO BID #90 tabs 10/27/24 hydroxyzine pamoate 25 mg capsule 25 - 50 mg (1 - 2 x 25 mg) PO 10/27/24 BEDTIME #60 caps metoprolol succinate 25 mg 25 mg PO DAILY #90 tabs 10/27/24 tablet,extended release 24 hr (Toprol XL) furosemide 20 mg tablet 20 mg PO BID PRN Edema #60 tabs 11/04/24 loratadine 10 mg tablet 10 mg PO DAILY allergies #90 tabs 03/06/25 nitroglycerin 0.4 mg sublingual 0.4 mg sublingual Q5M PRN chest 03/06/25 tablet pain 30 days #30 tabs rollaid walker with seat #1 ea 03/26/25 Diabetic shoes #1 ea 05/11/25 gabapentin 300 mg capsule 900 mg (3 x 300 mg) PO TID #90 caps 06/11/25 albuterol sulfate 90 mcg/actuation 3 inh inhalation Q6H PRN shortness 06/22/25 aerosol inhaler (Ventolin HFA) of breath or wheezing #8.5 grams methylprednisolone 4 mg tablets in See Rx Instructions PO .COMPLEX 06/22/25 a dose pack (Medrol ([place])) #21 ea paroxetine HCl 20 mg tablet (Paxil) 20 mg PO .HS #30 tabs 06/30/25 azelastine 137 mcg (0.1 %) nasal 2 spray intranasal .q am PRN 07/02/25 spray allergies or congestion #30 mL fluticasone 250 mcg-salmeterol 50 1 inh inhalation Q12H #60 ea 07/13/25 mcg/dose blistr powdr for inhalation (Advair Diskus) levothyroxine 137 mcg tablet 137 mcg PO DAILY #90 tabs 07/14/25 metformin 500 mg tablet,extended 500 mg PO BID #180 tabs 07/14/25 release 24 hr (Glucophage XR) omeprazole 20 mg capsule,delayed 20 mg PO BID #90 caps 08/17/25 release paroxetine HCl 40 mg tablet (Paxil) 40 mg PO DAILY #30 tabs 08/19/25 trazodone 100 mg tablet 200 mg (2 x 100 mg) PO .HS #60 tabs 08/19/25 cyclobenzaprine 5 mg tablet 10 mg (2 x 5 mg) PO TID PRN muscle 08/31/25 spasm #180 tabs diazepam 10 mg tablet 5 mg (1/2 x 10 mg) PO .q hs prn 08/31/25 PRN muscle spasm 30 days #10 tabs fluticasone propionate 50 See Rx Instructions .Route 08/31/25 mcg/actuation nasal .COMPLEX #16 grams spray,suspension oxycodone-acetaminophen 7.5 mg-325 1 tab PO Q8H PRN pain 30 days #90 08/31/25 mg tablet tabs prednisone 20 mg tablet 20 mg PO DAILY 5 days #5 tabs 08/31/25 quetiapine 50 mg tablet (Seroquel) 50 mg PO .HS #30 tabs 09/11/25 Allergies Allergy/AdvReac Type Severity Reaction Status Date / Time No Known Allergies Allergy Verified 09/11/25 13:16 Review of Systems Const: Denies: fever(s) or chills Card: Reports: chest pain Resp: Denies: dyspnea GI: Denies: abdominal pain : Denies: dysuria, urinary frequency or urinary urgency Musc: Denies: neck pain or back pain Skin/Breast: Denies: rash PFSH ED PFSH: Medical History Major depressive disorder, recurrent, moderate Psychiatric care Chronic back pain Elevated blood-pressure reading, without diagnosis of hypertension Nocturnal cough Insomnia Adult BMI 40.0-44.9 kg/sq m Hyperlipidemia LDL goal <130 Peripheral neuritis of both feet Chronic bilateral back pain Asthma Allergies Atherosclerotic heart disease of [place] coronary artery with other forms of angina pectoris Angina & CABG, 01/27/[address] Grullon Surgeon in [place] CAD Colon polyps Hypothyroidism DJD (degenerative joint disease) COPD (chronic obstructive pulmonary disease) Hypertension Surgical History History of right knee surgery Reattach patella Hx of colonoscopy with polypectomy 12/31/[address] Quiroga History of open heart surgery 01-27-[address] Grullon Surgeon in [place] History of replacement of both shoulder joints 2018 Family History Father CAD (coronary artery disease), Onset Age: 54 Dementia Diabetes Family/Other CAD (coronary artery disease) Cancer Stroke Mother Cancer Denies family history of Clotting disorder Chronic kidney disease (CKD) Suicide Anesthesia complication Bleeding disorder Lung disease Social History Smoking and tobacco/nicotine status: never used tobacco/nicotine Quit status (tobacco/nicotine): has quit using Year quit tobacco: 2009 Former quit date comment: 1ppd x 30 years Second hand smoke exposure: No Alcohol intake: current Alcohol intake frequency: holidays/special occasions only Alcohol type: beer Substance/Drug Use: never Adopted: No Caregiver/support person: No Lives independently: Yes Household members: none Housing: Manufactured/Mobile home Marital status: Single Number of children: 3 Number of grandchildren: 1 Highest education level completed: GED or Equivalent service: No Current occupational status: retired and disabled Current occupational exposures/hazards: No Pets and animals: Yes (inside) Pets & animals: dog(s) Leisure activites: other Leisure activities details: nothing Sexually active: No Do you think of yourself as: Straight/Heterosexual Current gender identity: Male Jenny/Islam: Synagogue Special jenny needs: No Agree to transfusion: Yes Physical Exam Const: COMMON NORMALS: no acute distress GENERAL APPEARANCE: cooperative and comfortable ORIENTATION/CONSCIOUSNESS: Yes awake, Yes oriented to person, Yes oriented to place and Yes oriented to time HENMT: COMMON NORMALS: normocephalic, atraumatic and hearing grossly normal bilaterally HEAD & SCALP: normocephalic and atraumatic Resp: COMMON NORMALS: normal respiratory effort, No retractions, No use of accessory muscles and clear to auscultation bilaterally AUSCULTATION: clear to auscultation bilaterally Cardio: COMMON NORMALS: regular rate, regular rhythm and No murmurs present (Cardio) RATE: regular rate RHYTHM: regular rhythm GI: COMMON NORMALS: Soft to palpation and No hepatosplenomegaly present AUSCULTATION: Yes normoactive bowel sounds PALPATION: Yes Soft to palpation, No Tenderness to palpation present (GI), No Guarding due to palpation present (GI) and Yes No hepatosplenomegaly present Extremity: COMMON NORMALS: normal to inspection, capillary refill normal, no clubbing, cyanosis or edema, no calf tenderness and no pedal edema Neuro: SENSORIUM/ORIENTATION: Yes oriented to person, Yes oriented to place and Yes oriented to time Skin: COMMON NORMALS: no rashes or lesions noted GENERAL SKIN EXAM: no rashes or lesions noted Course Vital Signs: Vital signs: Vital Signs Temperature 98.9 F 09/10/25 08:52 Pulse Rate 86 09/10/25 08:52 Respiratory Rate 16 09/10/25 08:52 Blood Pressure 138/91 09/10/25 08:52 Pulse Oximetry 97 09/10/25 08:52 Oxygen Delivery Me thod Room Air 09/10/25 08:52 MDM - Chest Pain Medical Decision Making Cardiac workup initiated based on symptoms concern for coronary artery disease. Other considerations as likely pneumonia and pulmonary embolism dissecting aneurysm and pneumothorax reflux disease. Exam and initial lab work are unremarkable. We are waiting for second troponin patient left the department AGAINST MEDICAL ADVICE I was busy with other patients when I went to try to convert discussed with the patient to convince him to stay to complete the workup he had already left. Asked staff to call the patient and have him follow-up with his primary care doctor. Medical Records I reviewed the patient's medical records. Lab Data I reviewed the patient's lab results. 09/10/25 09:05 09/10/25 09:05 Radiology Impressions Chest X-Ray 09/10/25 08:45 IMPRESSION: Stable chest with cardiomegaly as above. Laboratory Results WBC 10.94 10^3/uL (3.29-11.43) 09/10/25 09:05 RBC 4.90 10^6/uL (3.85-5.65) 09/10/25 09:05 Hgb 15.80 g/dL (11.27-16.99) 09/10/25 09:05 Hct 46.2 % (37-53) 09/10/25 09:05 MCV 94.3 fl (82-101) 09/10/25 09:05 MCH 32.2 pg (27-33) 09/10/25 09:05 MCHC 34.2 g/dL (30-55) 09/10/25 09:05 RDW 13.3 % (12.1-15.1) 09/10/25 09:05 Plt Count 252 10^3/cmm (157-399) 09/10/25 09:05 MPV 9.2 fL (7.4-10.4) 09/10/25 09:05 Neut % (Auto) 61.6 % 09/10/25 09:05 Lymph % (Auto) 25.3 % 09/10/25 09:05 [place] % (Auto) 8.5 % 09/10/25 09:05 Eos % (Auto) 3.2 % 09/10/25 09:05 Baso % (Auto) 0.9 % 09/10/25 09:05 Neut # (Auto) 6.73 10^3/uL (1.8-7.7) 09/10/25 09:05 Lymph # (Auto) 2.8 10^3/uL (0.8-4.8) 09/10/25 09:05 [place] # (Auto) 0.9 10^3/uL (0.2-0.9) 09/10/25 09:05 Eos # (Auto) 0.4 10^3/uL (0.0-0.8) 09/10/25 09:05 Baso # (Auto) 0.1 10^3/uL (0.0-0.1) 09/10/25 09:05 Nucleated RBC % (auto) 0 % 09/10/25 09:05 Nucleated RBCs # 0.0 /100WBC 09/10/25 09:05 Sodium 138 mmol/L (136-145) 09/10/25 09:05 Potassium 4.7 mmol/L (3.5-5.1) 09/10/25 09:05 Chloride 104 mmol/L (98-107) 09/10/25 09:05 Carbon Dioxide 21 mmol/L (22-29) L 09/10/25 09:05 Anion Gap 17.7 (5-19) 09/10/25 09:05 BUN 16 mg/dL (8-23) 09/10/25 09:05 Creatinine 0.8 mg/dL (0.7-1.2) 09/10/25 09:05 GFR Calculation 98.0 mL/min (90-130) 09/10/25 09:05 Glucose 141 mg/dL (65-115) H 09/10/25 09:05 Calculated Osmolality 290 mOsm/kg (285-295) 09/10/25 09:05 Calcium 8.8 mg/dL (8.5-10.5) 09/10/25 09:05 Total Bilirubin 0.3 mg/dL (0.15-1.2) 09/10/25 09:05 AST 22 U/L (0-40) 09/10/25 09:05 ALT 40 U/L (0-41) 09/10/25 09:05 Alkaline Phosphatase 76 U/L (40-130) 09/10/25 09:05 Troponin T Baseline 9 ng/L (0-15) 09/10/25 09:05 Total Protein 6.8 g/dL (6.6-8.7) 09/10/25 09:05 Albumin 4.3 g/dL (3.5-5.2) 09/10/25 09:05 Globulin 2.5 g/dL (1.3-4.6) 09/10/25 09:05 All radiology interpretation(s) finalized by discharge EKG Data EKG 1: I personally reviewed and interpreted this EKG as follows: EKG interpretation date: 09/10/25 Interpretation: EKG 09/10/2025 8:41 AM sinus rhythm rate of 75 parable 201 QTc 390. No significant change compared EKG 09/21/2022 Discharge Plan Discharge Patient Disposition: Left Against Medical Advice Clinical Impression: Chest pain, CAD (coronary artery disease) Condition: Stable Prescriptions: No Action amlodipine 10 mg tablet 10 mg PO QAM Qty: 90 3RF isosorbide mononitrate 60 mg tablet extended release 24 hr 60 mg PO DAILY Qty: 180 3RF Rx Instructions: take 1 tab ( 60mg ) in AM take 1/2 tab ( 30mg ) in PM (DME) rollaid walker with seat See Rx Instructions .Route .MEDSUPPLY Qty: 1 0RF Rx Instructions: As directed fluticasone propion-salmeterol [Advair Diskus] 250-50 mcg/dose blister with device 1 inh inhalation Q12H Qty: 60 2RF paroxetine HCl [Paxil] 20 mg tablet 20 mg PO .HS Qty: 30 2RF quetiapine [Seroquel] 50 mg tablet 50 mg PO .HS Qty: 30 0RF ranolazine 500 mg tablet extended release 12 hr 500 mg PO BID (DME) Diabetic shoes See Rx Instructions .ROUTE .MEDSUPPLY Qty: 1 0RF Rx Instructions: With 3 pairs of inserts paroxetine HCl [Paxil] 40 mg tablet 40 mg PO DAILY Qty: 30 2RF trazodone 100 mg tablet 200 mg PO .HS Qty: 60 1RF prednisone 20 mg tablet 20 mg PO DAILY 5 Days Qty: 5 0RF cyclobenzaprine 5 mg tablet 10 mg PO TID PRN (Reason: muscle spasm) Qty: 180 6RF atorvastatin 80 mg tablet 40 mg PO BID Qty: 90 1RF hydroxyzine pamoate 25 mg capsule 25 - 50 mg PO BEDTIME Qty: 60 0RF Rx Instructions: TAKE 1 TO 2 CAPSULES BY MOUTH ONCE DAILY 1 HOUR BEFORE BEDTIME metoprolol succinate [Toprol XL] 25 mg tablet extended release 24 hr 25 mg PO DAILY Qty: 90 5RF furosemide 20 mg tablet 20 mg PO BID PRN (Reason: Edema) Qty: 60 5RF nitroglycerin 0.4 mg tablet, sublingual 0.4 mg sublingual Q5M PRN (Reason: chest pain) 30 Days Qty: 30 3RF Rx Instructions: until response; do not exceed 3 doses per episode loratadine 10 mg tablet 10 mg PO DAILY Qty: 90 3RF gabapentin 300 mg capsule 900 mg PO TID Qty: 90 6RF azelastine 137 mcg (0.1 %) spray,non-aerosol 2 spray intranasal .q am PRN (Reason: allergies or congestion) Qty: 30 5RF Rx Instructions: administer into each nostril metformin [Glucophage XR] 500 mg tablet extended release 24 hr 500 mg PO BID Qty: 180 1RF levothyroxine 137 mcg tablet 137 mcg PO DAILY Qty: 90 1RF omeprazole 20 mg capsule,delayed release(DR/EC) 20 mg PO BID Qty: 90 0RF diazepam 10 mg tablet 5 mg PO .q hs prn PRN (Reason: muscle spasm) 30 Days Qty: 10 0RF fluticasone propionate 50 mcg/actuation spray,suspension See Rx Instructions .ROUTE .COMPLEX Qty: 16 1RF Dose Instruction: USE 2 SPRAY(S) IN EACH NOSTRIL EVERY DAY AT BEDTIME NEEDED FOR CONGESTION Rx Instructions: USE 2 SPRAY(S) IN EACH NOSTRIL EVERY DAY AT BEDTIME NEEDED FOR CONGESTION oxycodone-acetaminophen 7.5-325 mg tablet 1 tab PO Q8H PRN (Reason: pain) 30 Days Qty: 90 0RF aspirin [Adult Aspirin Regimen] 81 mg tablet,delayed release (DR/EC) 81 mg PO QAM niacin 500 mg tablet extended release See Rx Instructions .ROUTE .COMPLEX PRN (Reason: low HDL) Rx Instructions: One half a tab at bedtime for 1 weeks then 1 at bedtime for 1 week then 2 tablets at bedtime methylprednisolone [Medrol (Lyle)] 4 mg tablets,dose pack See Rx Instructions .ROUTE .COMPLEX Qty: 21 0RF Rx Instructions: for 6 days albuterol sulfate [Ventolin HFA] 90 mcg/actuation HFA aerosol inhaler 3 inh inhalation Q6H PRN (Reason: shortness of breath or wheezing) Qty: 8.5 0RF Rx Instructions: with aerochamber Referrals: Caesar Isidro MD [Primary Care Provider, Family Practice] Print Language: Kiswahili Coding Level of Care Code ED Squaring Shear Operator for Chg Fwd Heart Score HEART Score Components History: Slightly Suspicous EKG: Normal Age: 45-64 yrs Risk Factors: >/=3 Risk Factors Troponin: Baseline Trop <16 ng/L HEART Score RESULT HEART Score: 3
== END 2025-09-10 11:07 | disposition left against medical advice (07) ==
PROVIDERS: Emergency Provider Family Medicine; PCP Family Medicine
DX: R07.9 Chest pain, unspecified (principal); I25.118 Atherosclerotic heart disease of native coronary artery with other forms of angina pectoris; Z79.84 Long term (current) use of oral hypoglycemic drugs; Z79.82 Long term (current) use of aspirin; Z87.891 Personal history of nicotine dependence; J44.9 Chronic obstructive pulmonary disease, unspecified; I10 Essential (primary) hypertension; E78.5 Hyperlipidemia, unspecified; Z95.1 Presence of aortocoronary bypass graft
CPT/HCPCS: 36415; 71045; 80053; 84484; 85025; 93005; 99285; J9999

== ENCOUNTER 2025-09-15 15:39 | Emergency (ER) | payer MEDICAID, SELFPAY ==
[2025-09-15 16:01] VITALS: BP 130/73; PULSE 86; TEMP 36.7; O2SAT 96; BMI 39.2
--- NOTE | 2025-09-15 16:11 | XRR_ITS ---
PROCEDURE INFORMATION: Exam: XR Left Foot Exam date and time: 09/15/2025 4:17 PM Age: 60 years old Clinical indication: Pain; Foot and heel; Left; Additional info: Foot pain/heel pain TECHNIQUE: Imaging protocol: Radiologic exam of the left foot. Views: 3 or more views. COMPARISON: CR XR foot LT min 3V* [id number] 08/17/2021 1:05 PM FINDINGS: Bones/joints: No acute fractures. Prominent plantar calcaneal spur. Small Achilles tendon insertional enthesophyte. No dislocations. Anam-ty-ztkbndys degenerative changes of the midfoot. No significant osseous lesions. Soft tissues: No significant soft tissue abnormalities. XR/XR foot LT min 3V* 21000 IMPRESSION: 1. No acute fractures or malalignment. 2. Prominent plantar calcaneal spur. 3. Small Achilles tendon insertional enthesophyte. 4. Dnmi-xm-bandzsae degenerative changes of the midfoot.
--- NOTE | 2025-09-15 16:17 | ED_ITS ---
HPI - Extremity Problem General: Chief complaint: Extremity Injury, Lower Stated complaint: L foot pain Time Seen by Provider: 09/15/25 16:10 History of Present Illness: Patient is a pleasant 58-year-old gentleman DM, HTN, HLD, presents to the emergency room due to left foot plantar surface pain. Patient had his diabetic shoes on, was walking, walked over a 10 x 10 cm flat rock, at 930 this morning, and stated he has had pain ever since. He stated he had issues getting off his couch to walk. This occurred this morning. No home remedies. Not aware of any foreign body in his shoes. Associated symptoms: Deny chest pain, fever(s) or rash Related Data Home Medications ?Medication ?Instructions ?Recorded ?Confirmed aspirin 81 mg tablet,delayed 81 mg PO QAM heart 09/11/25 release (Adult Aspirin Regimen) niacin 500 mg tablet,extended See Rx Instructions .Rou te 02/02/24 09/11/25 release .COMPLEX PRN low HDL ranolazine 500 mg tablet,extended 500 mg PO BID 09/11/25 release,12 hr Previous Rx's ?Medication ?Instructions ?Recorded amlodipine 10 mg tablet 10 mg PO QAM blood pressure #90 08/15/24 tabs isosorbide mononitrate 60 mg 60 mg PO DAILY #180 tabs 08/15/24 tablet,extended release 24 hr atorvastatin 80 mg tablet 40 mg (1/2 x 80 mg) PO BID # 90 tabs 10/27/24 hydroxyzine pamoate 25 mg capsule 25 - 50 mg (1 - 2 x 25 mg) PO 10/27/24 BEDTIME #60 caps metoprolol succinate 25 mg 25 mg PO DAILY #90 tabs 01/19 tablet,extended release 24 hr (Toprol XL) furosemide 20 mg tablet 20 mg PO BID PRN Edema #60 t abs 11/04/24 loratadine 10 mg tablet 10 mg PO DAILY allergies #90 tabs 03/06/25 nitroglycerin 0.4 mg sublingual 0.4 mg sublingual Q5M PRN chest 03/06/25 tablet pain 30 days #30 tabs rollaid walker with seat #1 ea 03/26/25 Diabetic shoes #1 ea 05/11/25 gabapentin 300 mg capsule 900 mg (3 x 300 mg) PO TID # 90 caps 06/11/25 albuterol sulfate 90 mcg/actuation 3 inh inhalation Q6 H PRN shortness 06/22/25 aerosol inhaler (Ventolin HFA) of breath or wheezing # 8.5 grams methylprednisolone 4 mg tablets in See Rx Instructions PO .COMPLEX 06/22/25 a dose pack (Medrol (Lyle)) #21 ea paroxetine HCl 20 mg tablet (Paxil) 20 mg PO .HS #30 t abs 06/30/25 azelastine 137 mcg (0.1 %) nasal 2 spray intranasal .q am PRN 07/02/25 spray allergies or congestion #30 mL fluticasone 250 mcg-salmeterol 50 1 inh inhalation Q12 H #60 ea 07/13/25 mcg/dose blistr powdr for inhalation (Advair Diskus) levothyroxine 137 mcg tablet 137 mcg PO DAILY #90 tabs 07/14/25 metformin 500 mg tablet,extended 500 mg PO BID #180 ta bs 07/14/25 release 24 hr (Glucophage XR) omeprazole 20 mg capsule,delayed 20 mg PO BID #90 caps 08/17/25 release paroxetine HCl 40 mg tablet (Paxil) 40 mg PO DAILY #30 tabs 08/19/25 trazodone 100 mg tablet 200 mg (2 x 100 mg) PO .HS # 60 tabs 08/19/25 cyclobenzaprine 5 mg tablet 10 mg (2 x 5 mg) PO TID HI N muscle 08/31/25 spasm #180 tabs diazepam 10 mg tablet 5 mg (1/2 x 10 mg) PO .q hs prn 08/31/25 PRN muscle spasm 30 days #10 tabs fluticasone propionate 50 See Rx Instructions .Route 1 mcg/actuation nasal .COMPLEX #16 grams spray,suspension oxycodone-acetaminophen 7.5 mg-325 1 tab PO Q8H PRN pa in 30 days #90 08/31/25 mg tablet tabs prednisone 20 mg tablet 20 mg PO DAILY 5 days #5 tab s 08/31/25 quetiapine 50 mg tablet (Seroquel) 50 mg PO .HS #30 ta bs 09/11/25 ketorolac 10 mg tablet 10 mg PO Q8H PRN pain 5 days #14 09/15/25 tabs methocarbamol 500 mg tablet 500 mg PO Q8H PRN muscle s pasm #30 09/15/25 tabs Allergies Allergy/AdvReac Type Severity Reaction Status Date / Time No Known Allergies Allergy Verified 09/15/25 16:05 Review of Systems General: Reports: 10 or more systems reviewed and unremarkable except in HPI and below Const: Denies: fever(s), chills or fatigue Card: Denies: chest pain, palpitations or swelling of feet/ankles Resp: Denies: dyspnea or productive cough GI: Denies: abdominal pain, nausea, vomiting or diarrhea : Denies: flank pain or difficulty urinating Musc: Reports: extremity pain; Denies: back pain or extremity swelling Skin/Breast: Denies: rash or pruritus Neuro: Denies: headache(s), numbness in extremities or weakness in extremities PFSH ED PFSH: Medical History (Updated 09/15/25 @ 17:33 by TORI Condon) Major depressive disorder, recurrent, moderate Psychiatric care Chronic back pain Elevated blood-pressure reading, without diagnosis of hypertension Nocturnal cough Insomnia Adult BMI 40.0-44.9 kg/sq m Hyperlipidemia LDL goal <130 Peripheral neuritis of both feet Chronic bilateral back pain Asthma Allergies Atherosclerotic heart disease of [place] coronary artery with other forms of angina pectoris Angina & CABG, 01/27/[address] Grullon 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 Quiroga History of open heart surgery 01-27-[address] Grullon Surgeon in [place] History of replacement of both shoulder joints 2018 Family History Father CAD (coronary artery disease), Onset Age: 54 Dementia Diabetes Family/Other CAD (coronary artery disease) Cancer Stroke Mother Cancer Denies family history of Clotting disorder Chronic kidney disease (CKD) Suicide Anesthesia complication Bleeding disorder Lung disease Social History Smoking and tobacco/nicotine status: never used tobacco/nicotine Quit status (tobacco/nicotine): has quit using Year quit tobacco: 2009 Former quit date comment: 1ppd x 30 years Second hand smoke exposure: No Alcohol intake: current Alcohol intake frequency: holidays/special occasions only Alcohol type: beer Substance/Drug Use: never Adopted: No Caregiver/support person: No Lives independently: Yes Household members: none Housing: Manufactured/Mobile home Marital status: Single Number of children: 3 Number of grandchildren: 1 Highest education level completed: GED or Equivalent service: No Current occupational status: retired and disabled Current occupational exposures/hazards: No Pets and animals: Yes (inside) Pets & animals: dog(s) Leisure activites: other Leisure activities details: nothing Sexually active: No Do you think of yourself as: Straight/Heterosexual Current gender identity: Male Jenny/Jain: Yazdanism Special jenny needs: No Agree to transfusion: Yes Physical Exam Const: COMMON NORMALS: no acute distress and patient oriented x3 GENERAL APPEARANCE: cooperative; not in distress HENMT: COMMON NORMALS: normocephalic HEAD & SCALP: normal to inspection and normocephalic MOUTH: Normal oral and palatal mucosa present and lip normal THROAT: posterior oropharynx normal and tonsils normal Neck/C-Spine: COMMON NORMALS: no lymphadenopathy, supple and no meningeal signs GENERAL: Yes normal visual inspection and Yes trachea midline Chest: COMMONS NORMALS: normal inspection of the chest Resp: COMMON NORMALS: normal respiratory effort and clear to auscultation bilaterally EFFORT & INSPECTION: Yes able to speak in complete sentences and No respiratory distress AUSCULTATION: clear to auscultation bilaterally, no rales, no rhonchi and no wheezes Cardio: COMMON NORMALS: regular rate, regular rhythm, S1 normal heart sound present, S2 normal heart sound present and No murmurs present (Cardio) RATE: regular rate RHYTHM: regular rhythm HEART SOUNDS: S1 normal heart sound present and S2 normal heart sound present GI: COMMON NORMALS: Normal to inspection, nondistended, normoactive bowel sounds present, Soft to palpation and non-tender PALPATION: Yes Soft to palpation Extremity: COMMON NORMALS: normal to inspection, full ROM and capillary refill normal GENERAL: Yes normal exam except as noted, No pallor and Yes pulses abnormal LEFT LOWER EXTREMITY: Yes foot & digits Left foot and digits: Yes inspection (Mild localized swelling mid to posterior plantar surface), Yes palpation (Pain at proximal heel where the plantar fascia located), Yes ROM (Intact) and Yes tendon exam Neuro: COMMON NORMALS: patient oriented x3, CN's II-XII intact bilaterally, moves all extremities and no focal motor deficits MENINGEAL SIGNS: Yes no meningeal signs Skin: COMMON NORMALS: no rashes or lesions noted GENERAL SKIN EXAM: no rashes or lesions noted Course Vital Signs: Vital signs: Vital Signs Temperature 98.0 F 09/15/25 16:01 Pulse Rate 86 09/15/25 16:01 Blood Pressure 130/73 09/15/25 16:01 Pulse Oximetry 96 09/15/25 16:01 Oxygen Delivery Me thod Room Air 09/15/25 16:01 MDM - Extremity (Nontraumatic) Medical Decision Making Patient is a 60-year-old male with diabetes, comes with rapid onset of right heel pain, proximal, right plantar fasciitis, with physical exam noting some mild swelling in the area of the plantar fascia insertion. X-rays no acute findings. He needs to go to podiatry for further care and possible injections. I have sent Toradol, methocarbamol to the pharmacy. Lab Data Radiology Impressions Foot X-Ray 09/15/25 16:11 IMPRESSION: 1. No acute fractures or malalignment. 2. Prominent plantar calcaneal spur. 3. Small Achilles tendon insertional enthesophyte. 4. [id number] degenerative changes of the midfoot. All radiology interpretation(s) finalized by discharge Discharge Plan Discharge Patient Disposition: Home Clinical Impression: Plantar fasciitis, left Condition: Stable Prescriptions: New methocarbamol 500 mg tablet 500 mg PO Q8H PRN (Reason: muscle spasm) Qty: 30 0RF ketorolac 10 mg tablet 10 mg PO Q8H PRN (Reason: pain) 5 Days Qty: 14 0RF No Action amlodipine 10 mg tablet 10 mg PO QAM Qty: 90 3RF isosorbide mononitrate 60 mg tablet extended release 24 hr 60 mg PO DAILY Qty: 180 3RF Rx Instructions: take 1 tab ( 60mg ) in AM take 1/2 tab ( 30mg ) in PM (DME) rollaid walker with seat See Rx Instructions .Route .MEDSUPPLY Qty: 1 0RF Rx Instructions: As directed fluticasone propion-salmeterol [Advair Diskus] 250-50 mcg/dose blister with device 1 inh inhalation Q12H Qty: 60 2RF paroxetine HCl [Paxil] 20 mg tablet 20 mg PO .HS Qty: 30 2RF quetiapine [Seroquel] 50 mg tablet 50 mg PO .HS Qty: 30 0RF ranolazine 500 mg tablet extended release 12 hr 500 mg PO BID (DME) Diabetic shoes See Rx Instructions .ROUTE .MEDSUPPLY Qty: 1 0RF Rx Instructions: With 3 pairs of inserts paroxetine HCl [Paxil] 40 mg tablet 40 mg PO DAILY Qty: 30 2RF trazodone 100 mg tablet 200 mg PO .HS Qty: 60 1RF prednisone 20 mg tablet 20 mg PO DAILY 5 Days Qty: 5 0RF cyclobenzaprine 5 mg tablet 10 mg PO TID PRN (Reason: muscle spasm) Qty: 180 6RF atorvastatin 80 mg tablet 40 mg PO BID Qty: 90 1RF hydroxyzine pamoate 25 mg capsule 25 - 50 mg PO BEDTIME Qty: 60 0RF Rx Instructions: TAKE 1 TO 2 CAPSULES BY MOUTH ONCE DAILY 1 HOUR BEFORE BEDTIME metoprolol succinate [Toprol XL] 25 mg tablet extended release 24 hr 25 mg PO DAILY Qty: 90 5RF furosemide 20 mg tablet 20 mg PO BID PRN (Reason: Edema) Qty: 60 5RF nitroglycerin 0.4 mg tablet, sublingual 0.4 mg sublingual Q5M PRN (Reason: chest pain) 30 Days Qty: 30 3RF Rx Instructions: until response; do not exceed 3 doses per episode loratadine 10 mg tablet 10 mg PO DAILY Qty: 90 3RF gabapentin 300 mg capsule 900 mg PO TID Qty: 90 6RF azelastine 137 mcg (0.1 %) spray,non-aerosol 2 spray intranasal .q am PRN (Reason: allergies or congestion) Qty: 30 5RF Rx Instructions: administer into each nostril metformin [Glucophage XR] 500 mg tablet extended release 24 hr 500 mg PO BID Qty: 180 1RF levothyroxine 137 mcg tablet 137 mcg PO DAILY Qty: 90 1RF omeprazole 20 mg capsule,delayed release(DR/EC) 20 mg PO BID Qty: 90 0RF diazepam 10 mg tablet 5 mg PO .q hs prn PRN (Reason: muscle spasm) 30 Days Qty: 10 0RF fluticasone propionate 50 mcg/actuation spray,suspension See Rx Instructions .ROUTE .COMPLEX Qty: 16 1RF Dose Instruction: USE 2 SPRAY(S) IN EACH NOSTRIL EVERY DAY AT BEDTIME NEEDED FOR CONGESTION Rx Instructions: USE 2 SPRAY(S) IN EACH NOSTRIL EVERY DAY AT BEDTIME NEEDED FOR CONGESTION oxycodone-acetaminophen 7.5-325 mg tablet 1 tab PO Q8H PRN (Reason: pain) 30 Days Qty: 90 0RF aspirin [Adult Aspirin Regimen] 81 mg tablet,delayed release (DR/EC) 81 mg PO QAM niacin 500 mg tablet extended release See Rx Instructions .ROUTE .COMPLEX PRN (Reason: low HDL) Rx Instructions: One half a tab at bedtime for 1 weeks then 1 at bedtime for 1 week then 2 tablets at bedtime methylprednisolone [Medrol (Lyle)] 4 mg tablets,dose pack See Rx Instructions .ROUTE .COMPLEX Qty: 21 0RF Rx Instructions: for 6 days albuterol sulfate [Ventolin HFA] 90 mcg/actuation HFA aerosol inhaler 3 inh inhalation Q6H PRN (Reason: shortness of breath or wheezing) Qty: 8.5 0RF Rx Instructions: with aerochamber Discharge Orders: Discharge ED (Routine); Ordered 09/15/25 Ordered By: Jayla Abel Referrals: Boo Vigil DPM [Physician, Podiatry] - 1 week Caesar Isidro MD [Primary Care Provider, Family Practice] Discharge Diet: Usual diet Discharge Activity: Resume usual activity Patient Instructions: Plantar Fasciitis (ED), Patient Portal & Allie Instructions Activity Restrictions/Additional Instructions: - Follow up with Dr. Vigil, podiatry - INDU wrap to left foot -Keep your foot in a shoe. This will help with pain. -Elevation can help with pain. - roll your foot across frozen water bottle - Toradol/ketorolac, Robaxin/methocarbamol sent to the pharmacy. - Return to ED with worsening pain. Print Language: Somali Coding Level of Care Code ED Echocardiograph Tech for Zeina Menchaca
[2025-09-15] MEDS: orphenadrine 30 mg/mL Inj 2 mL IM (16:53)
--- OUTSIDE RECORDS SUMMARY | 2025-09-15 18:24 | XMS_ITS | Clinical Summary ---
Author Organization [facility] Address [address] [address] Care Team Providers Care Fleet Assistant Name Role Phone Zack Edmondson DO Primary Care Provider [phone] Allergies No known active allergies Medications aspirin (ECOTRIN EC) 81 mg Tablet, Delayed Release (E.C.) Take 81 mg by mouth daily. 07/29/20 19 Active nebulizerIndicati ons:Moderate persistent asthma without complication Length of need 99 monthsNebulizer with compressor, Kit: Disposable Nebulizer Kit, 2 per month, filters , areosol mask: Yes. Name of Medication albuterol 1 Each 0 12/25/19 20 Active naloxone (NARCAN) 4 mg/spray [place], Non-Aerosol EMERGENCY USE ONLY: Administer 1 spray [...] 21 Active fluticasone propionate (FLONASE) 50 mcg/spray [place], Suspension nasal inhalerIndication s:Middle ear effusion, bilateral [...] (05/31/2021): Added automatically from request for surgery [id number] ASHD (arteriosclerotic heart disease) 05/17/2020 Overview (05/31/2021): Added automatically from request for surgery [id number] S/P CABG (coronary artery bypass graft) 05/17/20 Overview (05/31/2021): Added automatically from request for surgery [id number] Dyspnea on exertion 05/10/2020 Gastroesophageal reflux disease without esophagi tis 05/10/2020 Chronic cough 05/10/2020 Primary osteoarthritis of right knee 11/06/2019 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/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, right 0 07/29/2019 Atherosclerosis of [place] ronary artery of [place] heart with stable angina pectoris 01/27/2019 History of coronary artery bypass surgery 2018 Overview (05/31/2021): Added automatically from request for surgery [id number] Status post coronary artery bypass grafting 02/2019 [...] on file Legal Sex Male 9:31 AM BIOLOGY INTERN Gender Identity Not on file Sexual Orientation Not on file Last Filed Vital Signs Vital Sign Reading Time Taken Comments Blood Pressure 138/84 01/23/2025 7:58 AM BIOLOGY INTERN Pulse 74 01/23/2025 7:58 AM BIOLOGY INTERN Temperature 36.4 C (97.5 F) 10/09/2023 2:34 PM BIOLOGY INTERN Respiratory Rate 16 01/16/2022 9:41 AM BIOLOGY INTERN Oxygen Saturation 97% 10/09/2023 2:34 PM BIOLOGY INTERN Inhaled Oxygen Concentration - - Weight 145.2 kg (320 lb) 01/23/2025 7:58 AM BIOLOGY INTERN Height 185.4 cm (6' 1 ) 01/23/2025 7:58 AM BIOLOGY INTERN Body Mass Index 42.22 01/23/2025 7:58 AM BIOLOGY INTERN Plan of Treatment Upcoming Encounters Date Type Department Care Team (Late st Contact Info) Description 01/29/2026 8:45 AM BIOLOGY INTERN Office Visit [facility] [address] [place] [address] Fareed Garcia MD [address] [place] [address] Health Maintenance Due Date Last Done Comments DTAP/TDAP/TD VACCINES (1 - Tdap) 1982 Preventative Visit-Managed Medicaid 1982 FIT/FOBT Q 1 year 2008 Flex Sig/CT Colonography Q 5 years 2008 Lung Cancer Screening 2013 RSV VACCINE (60+ or ) (1 - Risk 50-74 years 1-dose series) 2013 ZOSTER VACCINE (1 of 2) 2013 FIT-DNA Q 3 years 11/12/2021 11/12/2018 COLORECTAL SCREENING 12/31/2021 12/31/2018, 12/31/2018, 12/31/2018 Colorectal Cancer Screening 12/31/2021 INFLUENZA VACCINE (#1) 2025 , 07/13/2020, 07/13/2020, Additional history exists Pre-Diabetes and Diabetes Screening 10/09/2026 10/09/2023, 01/23/2019, 05/03/2016 COVID-19 Vaccine Completed 12/26/2024, 05/2021, 02/24/2021, Additional history exists Medical Devices Implanted Type Area Lining Stitcher Device Identifier Shelf Expiration Date Model / Serial / Lot Log [id number] - Implant Search - 1 - Cement Palacos [id number] Implanted:Qty: 1 on 05/26/2013 Cement Left: Shoulder JULIUS US INC 08/26/2016 [id number] 0-01 / NA / [id number] Cement Simplex Hvisc 6194-1-010 - [id number] Implanted:01/2019 by Keyshawn Dimas MD (Quantity not on file) Cement Right: Shoulder SARBJIT- HOWMEDICA INT INC 02/23/2021 [id number] / / [id number] Ring Vein Marking 10mm [id number] - [id number] Implanted:Qty: 1 on 01/27/2019 by Jarvis Grullon MD Other N/A: Heart TELEFLEX- PILL WECK CHOLO L P 14-4086 / / Glenoid Base Hybrid Cmprhnsv [id number] - Sna Implanted:Qty: 1 on 05/26/2013 Shoulder Left: Shoulder BIOMET INC 03/26/2018 [id number] / NA / [id number] Glenoid Hybrid Post- Regenerex [id number] - Sna Implanted:Qty: 1 on 05/26/2013 Shoulder Left: Shoulder BIOMET INC 03/26/2023 [id number] / NA / [id number] Head Hum Versa-Dial [id number] - Sna Implanted:Qty: 1 on 05/26/2013 Shoulder Left: Shoulder BI[employer]ET INC 01/24/2023 [id number] / NA / [id number] Stem Hmrl Cmprhnsv Mini [id number] - Sna Implanted:Qty: 1 on 05/26/2013 Shoulder Left: Shoulder BI[employer]ET INC 12/27/2022 [id number] / NA / [id number] Stem Hum Versa-Dial Std Tpr [id number] - Sna Implanted:Qty: 1 on 05/26/2013 Shoulder Left: Shoulder BI[employer]ET INC 01/24/2023 [id number] / NA / [id number] Comp Cortiloc Rt 15 Med [id number] - [id number] Implanted:Qty: 1 on 07/29/2019 by Keyshawn Dimas MD Shoulder Right: Shoulder Cryoocyte TECH INC 07/17/2023 [id number] / / 2023-07-17 Head Hum Simpliciti [id number] - [id number] Implanted:Qty: 1 on 07/29/2019 by Keyshawn Dimas MD Shoulder Right: Shoulder TORNIER INC 05/25/2020 [id number] / / [id number] Head Hum Simpliciti Nucleus Sz3 [id number] - [id number] Implanted:Qty: 1 on 07/29/2019 by Keyshawn Dimas MD Shoulder Right: Shoulder TORNIER INC 07/26/2023 [id number] / / [id number] Explanted Type Area Lining Stitcher Device Identifier Shelf Expiration Date Model / Serial / Lot Guidewire Explanted:Qty: 1 on 07/29/2019 by Keyshawn Dimas MD Right: Shoulder TORNIER INC 04/16/2024 / / [id number] Procedures Procedure Name Priority Date/Time Associated Diagnosis Comments HEMOGLOBIN A1C Routine 10/09/2023 3:08 PM BIOLOGY INTERN COLONOSCOPY REPORT Routine 12/31/2018 1: 59 PM BIOLOGY INTERN COLON CANCER SCREEN, STOOL DNA Routine 11/12/2018 11:00 AM BIOLOGY INTERN from Last 3 Months or Most Recently Relevant to Health Maintenance Results * (ABNORMAL) HEMOGLOBIN A1C (10/09/2023 3:08 PM BIOLOGY INTERN) HEMOGLOBIN A1C 5.7(H) <=5.6 % 10/09/2023 3:28 PM BIOLOGY INTERN [facility] EST. AVG GLUCOSE, A1C 117 mg/dL 10/09/2023 3:28 PM BIOLOGY INTERN [facility] Blood Venipuncture / Unknown 10/09/2023 3:08 PM BIOLOGY INTERN 10/09/2023 3:08 PM BIOLOGY INTERN Narrative [facility] - 10/09/2023 3:28 PM BIOLOGY INTERN HGB A1C INTERPRETATION NORMAL: <5.7% PRE-DIABETES: 5.7 - 6.4% DIABETES: 6.5% OR GREATER us Heraclio Busch MD CHEMISTRY ORDERABLES Final Resu lt [facility] CLIA #[id number] Gibran0 [place] [address] * COLONOSCOPY REPORT (12/31/2018 1:59 PM BIOLOGY INTERN) 12/31/2018 1:59 PM BIOLOGY INTERN Dionicio Quiroga MD GI PROCEDURE ORDERABLES Final Re sult [facility] * (ABNORMAL) COLON CANCER SCREEN, STOOL DNA (11/12/2018 11:00 AM BIOLOGY INTERN) COLOGUARD RESULT Positive (A) Not Applicable 11/22/2018 12:26 PM BIOLOGY INTERN [facility] Comment: It is recommended that a positive [...] Verdugo. et al, N Engl J Med 2014;370(14):1581-9583.) Test Type: Composite algorithmic analysis of stool [...] can be accessed at the following location: [email or web address]. Additional description of the Cologuard test process, warnings and precautions can be found at [email or web address]. Rx Only. Stool STOOL SPECIMEN / Unknown 11/12/2018 11:00 AM BIOLOGY INTERN 11/14/2018 5:30 AM BIOLOGY INTERN Suzy Sotelo DO BODY FLUIDS AND STOOLS Ev doll Result [facility] CLIA # [id number] [address] , [address] [place] [address] from Last 3 Months or Most Recently Relevant to Health Maintenance Insurance [place] * Guarantor: GURPREET ARMIJO Account Type Relation to Patient Date of Phone Billing Address Personal/Family [address] [place] [address] RX INFOCROSSING Medicaid RX [employer] PLANS (INTERNAL) [facility] Plans [place]ICAID [place] Advance Directives For more information, please contact: [phone] * Full Code (Latest Code Status on File) Date Activated Date Inactivated Comments 04/18/2015 3:18 PM 04/20/2015 2:52 PM Care Teams Fleet Assistant Relationship Specialty Start Date End Date Zack Edmondson DO [address] [place] [address] PCP - General 03/07/21
== END 2025-09-15 17:53 | disposition home or self-care (01) ==
PROVIDERS: Emergency Provider Physician Assistant; PCP Family Medicine
DX: M72.2 Plantar fascial fibromatosis (principal); Z79.84 Long term (current) use of oral hypoglycemic drugs; Z79.82 Long term (current) use of aspirin; Z87.891 Personal history of nicotine dependence; J44.9 Chronic obstructive pulmonary disease, unspecified; E78.5 Hyperlipidemia, unspecified; I25.118 Atherosclerotic heart disease of native coronary artery with other forms of angina pectoris; I10 Essential (primary) hypertension; Z95.1 Presence of aortocoronary bypass graft
CPT/HCPCS: 73630; 96372; 99284; J1885; J2360

== ENCOUNTER → 2025-09-17 08:47 | Outpatient (BNVA) | payer MEDICAID, SELFPAY ==
[2025-09-10 08:28] VITALS: BP 149/89; BMI 39.9
== END ==
PROVIDERS: PCP Family Medicine; Visit Provider Podiatrist Foot & Ankle Surgery
DX: S90.32XA Contusion of left foot, initial encounter (principal); M72.2 Plantar fascial fibromatosis; X58.XXXA Exposure to other specified factors, initial encounter
CPT/HCPCS: 99214

== ENCOUNTER → 2025-10-01 08:06 | Outpatient (BNVA) | payer MEDICAID, SELFPAY ==
[2025-09-10 08:28] VITALS: BP 149/89; BMI 39.9
== END ==
PROVIDERS: PCP Family Medicine; Visit Provider Podiatrist Foot & Ankle Surgery
DX: S90.32XA Contusion of left foot, initial encounter (principal); X58.XXXA Exposure to other specified factors, initial encounter; M72.2 Plantar fascial fibromatosis
CPT/HCPCS: 99213

== ENCOUNTER → 2025-10-12 10:16 | Outpatient (BNVA) | payer MEDICAID, SELFPAY | PROVIDERS: PCP Family Medicine; Visit Provider Nurse Practitioner Family | DX: M54.2 Cervicalgia (principal); M79.2 Neuralgia and neuritis, unspecified; M54.6 Pain in thoracic spine; G89.29 Other chronic pain; M54.50 Low back pain, unspecified | CPT/HCPCS: 99214 ==

== ENCOUNTER → 2025-10-13 10:08 | Outpatient (BNVA) | payer MEDICAID, SELFPAY | PROVIDERS: PCP Family Medicine; Visit Provider Orthopaedic Surgery | DX: M17.11 Unilateral primary osteoarthritis, right knee (principal); M22.2X1 Patellofemoral disorders, right knee | CPT/HCPCS: 73560; 73565; 99204 ==

== ENCOUNTER 2025-10-15 14:32 | Outpatient (CLI) | payer MEDICAID, SELFPAY ==
--- NOTE | 2025-10-15 15:15 | MR_ITS ---
WS: [id number] MRI LEFT FOOT, HINDFOOT WITHOUT CONTRAST. COMPARISON: Foot radiograph 09/15/2025 Multiplanar, multisequence imaging is performed without contrast. History: Heel and lateral foot pain for 3 weeks. Prior trauma. Subchondral cystic changes in the distal fibula. No fracture. No distal tibial fracture. Narrowing of the tibiotalar joint. There is a tiny osteochondral lesion in the far lateral talar dome. There is a very small amount of marrow edema in the posterior calcaneus. No fracture. 9 mm enthesopathy at the plantar fascia insertion. Minimal soft tissue edema and there is also small amount of edema in the enthesopathy. Small enthesopathy at the Achilles tendon insertion to the calcaneus. Linear intermediate striations in the Achilles tendon from mild tendinopathy. Mild Jennyfer deformity. No retrocalcaneal bursitis. Mild narrowing of the intertarsal articulations. There are a few small areas of degenerative cystic changes in the bones of the midfoot. Mild loss of the normal arch of the foot. Visualized Lisfranc ligament is normal. Small amount of edema is noted in the proximal fourth metatarsal. There is also a small amount of increased fluid in the articulation with the cuboid. Peroneal tendons, posterior tibialis tendon, flexor hallucis longus and flexor digitorum longus tendons are normal. Anterior talofibular and posterior talofibular ligaments are intact. Small amount of edema adjacent to the ATFL. No widening of the interosseous membrane. Deltoid ligament is heterogeneous probably from prior injury. There is no acute edema. The visualized spring ligament is normal. Calcaneofibular ligament is small caliber but intact. MR/MR foot LT wo con* [id number] IMPRESSION: 1. There is a very subtle amount of edema in the posterior calcaneus. No fract ure line identified. 2. Chronic subchondral cystic changes distal fibula. 3. 9 mm enthesopathy plantar fascia insertion with mild acute fasciitis. 4. Mild distal Achilles tendinopathy. 5. Degenerative changes in the midfoot with narrowing of the intertarsal artic ulations and a few subchondral cystic changes. 6. Marrow edema in the proximal fourth metatarsal. Marrow edema from acute inj ury or stress fracture not excluded. 7. ATFL is intact.
== END 2025-10-15 14:33 | disposition home or self-care (01) ==
LOC: RAD 14:32
PROVIDERS: PCP Family Medicine; Visit Provider Podiatrist Foot & Ankle Surgery
DX: M79.672 Pain in left foot (principal); S90.32XA Contusion of left foot, initial encounter; M89.8X7 Other specified disorders of bone, ankle and foot; M77.8 Other enthesopathies, not elsewhere classified; M67.874 Other specified disorders of tendon, left ankle and foot; M19.072 Primary osteoarthritis, left ankle and foot; R60.0 Localized edema; M25.872 Other specified joint disorders, left ankle and foot; R93.6 Abnormal findings on diagnostic imaging of limbs; X58.XXXA Exposure to other specified factors, initial encounter
CPT/HCPCS: 73718

== ENCOUNTER → 2025-10-27 07:33 | Outpatient (BNVA) | payer MEDICAID, SELFPAY | PROVIDERS: PCP Family Medicine; Visit Provider Podiatrist Foot & Ankle Surgery | DX: S90.32XD Contusion of left foot, subsequent encounter (principal); M19.072 Primary osteoarthritis, left ankle and foot; R93.7 Abnormal findings on diagnostic imaging of other parts of musculoskeletal system; X58.XXXD Exposure to other specified factors, subsequent encounter | CPT/HCPCS: 99214 ==

== ENCOUNTER → 2025-11-03 07:46 | Outpatient (BNVA) | payer MEDICAID, SELFPAY | PROVIDERS: PCP Family Medicine; Visit Provider Podiatrist Foot & Ankle Surgery | DX: E11.8 Type 2 diabetes mellitus with unspecified complications (principal); M19.072 Primary osteoarthritis, left ankle and foot; R93.7 Abnormal findings on diagnostic imaging of other parts of musculoskeletal system; Z79.84 Long term (current) use of oral hypoglycemic drugs | CPT/HCPCS: 99213 ==